=== PATIENT | male | born 1945 | race Caucasian/White ===

== ENCOUNTER 2020-09-20 14:08 | Observation (INO) ==
[2020-09-20] MEDS ORDERED: SODIUM CHLORIDE 0.9% 1000ML 1,000 ML IV ONE (16:27)
[2020-09-20] MEDS ORDERED: ACETAMINOPHEN 1,000 MG/100 ML VIAL IV STA (16:27)
[2020-09-20 16:46] LABS: Basophils # (auto) 0.05 K/uL (0-0.2); Basophils % (auto) 0.6 %; Eosinophils # (auto) 0.19 K/uL (0-0.5); Eosinophils % (auto) 2.2 %; Hematocrit (blood only) 43.6 % (42-52); Hemoglobin 14.8 g/dL (14.0-18.0); Immature Granulocytes # (auto) 0.02 K/uL (0.00-0.02); Immature Granulocytes % (auto) 0.2 %; Lymphocytes # (auto) 1.89 K/uL (1.2-3.4); Lymphocytes % (auto) 22.3 %; Mean Corpuscular Hemoglobin 31.3 pg (25-34); Mean Corpuscular Hgb Conc 33.9 g/dL (32-36); Mean Corpuscular Volume 92.2 fL (80-100); Mean Platelet Volume 10.5 fL (7.4-10.4); Monocytes # (auto) 0.63 K/uL (0.11-0.59); Monocytes % (auto) 7.4 %; Neutrophils % (auto) 67.3 %; Platelet Count 195 K/uL (130-400); RDW Coefficient of Variation 13.5 % (11.5-14.5); RDW Standard Deviation 45.6 fL (36.4-46.3); Red Blood Count 4.73 M/uL (4.7-6.1); White Blood Count 8.48 K/uL (4.8-10.8)
--- NOTE | 2020-09-20 16:49 | XRay Report ---
XR chest 1V portable HISTORY: 75 years-old Male Chest Pain acute atypical chest pain COMPARISON: Chest radiographs 06/21/2008 TECHNIQUE: Portable AP view of the chest FINDINGS: Cardiomediastinal and hilar silhouettes are within normal limits. No pneumothorax, pleural effusion, airspace consolidation or overt pulmonary edema. Degenerative changes of the shoulders and spine. Casper gical anchors of the bilateral humeral heads. IMPRESSION: No acute process. ACT 112: Negative or not required by law. The above report was generated using voice recognition software. It may contain grammatical, syntax o r spelling errors. Electronically signed by: Wilson Cruz M.D. 09/20/2020 4:48 PM
[2020-09-20 17:03] LABS: INR 0.9 (0.9-1.1); Prothrombin Time 9.5 Seconds (9.0-12.0)
[2020-09-20 17:08] LABS: Alanine Aminotransferase 24 U/L (12-78); Albumin Level 3.6 gm/dl (3.4-5.0); Aspartate Aminotransferase 13 U/L (15-37); BUN Creatinine Ratio 20.8 (10-20); Bilirubin Direct < 0.1 mg/dl (0-0.2); Blood Urea Nitrogen 24 mg/dl (7-18); Calcium 8.6 mg/dl (8.5-10.1); Carbon Dioxide 27 mmol/L (21-32); Chloride 107 mmol/L (98-107); Est GFR (African American) 73.3; Est GFR (Non-African American) 63.2; Glucose 180 mg/dl (70-99); Lipase 113 U/L (73-393); Magnesium 2.5 mg/dl (1.8-2.4); Potassium 4.5 mmol/L (3.5-5.1); Sodium 138 mmol/L (136-145)
[2020-09-20 17:16] LABS: Alkaline Phosphatase 95 U/L (45-117); Bilirubin,Total 0.3 mg/dl (0.2-1); C Reactive Protein 0.47 mg/dl (0-0.29); Creatine Kinase 82 U/L (39-308); Globulin 3.7 gm/dl (2.5-4.0); Phosphorus 3.2 mg/dl (2.5-4.9); Total Protein 7.3 gm/dl (6.4-8.2); Troponin I < 0.015 ng/ml (0-0.045)
--- NOTE | 2020-09-20 17:16 | Emergency Department Note ---
Impression & Plan Stroke-like symptoms, Diabetes, Hypertension ED Provider Note NAME: HERMILO BLACKMON AGE: 75 SEX: M ARRIVES VIA: Walk-In INFORMANT: Patient, ED PROVIDER(S): Gutierrez Correa MD CHIEF COMPLAINT: Slurred speech, dizziness, chest tightness on . PLAN: Disposition: Admit. MEDICAL DECISION MAKING: The patient is a pleasant 75-year-old gentleman with a past medical history of diabetes on insulin who presents to the emergency department for evaluation of strokelike symptoms that actually occurred evening when he was out in [place] at a gun show and his friends noticed he was slurring his speech and he felt nauseated and dizzy. The patient reports he did not want to come to the hospital at that time despite numerous friends attempted to encourage him to do so. At the conclusion of the gun show they drove home and the patient rather suggested they stop at a bar to have a couple of drinks where he reports he ate a hamburger and started to feel better and had to double whiskeys. And upon getting back to the area arrived to his friend's house where his car was parked and then proceeded to drive 50 miles to his home which he reports he did without difficulty and woke up in the morning feeling fine and proceeded with their schedule trip to visit his son in [place] with his . The patient did not mention his symptoms to his family at all during the weekend but upon returning last night did mention he had a mild frontal headache and felt fullness in his neck and this persisted this morning and while it is improved somewhat he still feels that sensation. He also reports having constant tingling in his left hand and fingers since his episode on . Otherwise he reports feeling tightness in his chest as well since the episode on where he feels more winded than usual. He reports mild nasal congestion but is typical for him around this time a year due to severe allergies. He denies any history of smoking cigarettes. Denies any history of asthma. He does relate that prior to the onset of symptoms on that they were driving from [employer] and so he admits he did not eat or drink anything because he did not want to stop before he got there and so acknowledges that his sugar may have been low and he certainly likely was dehydrated. He denies any known COVID-19 exposures. He does admit that it is very uncomfortable for him to wear a mask and so he does not typically wear a mask unless he is told to do so. Upon my evaluation he politely asked if I wanted him to put a mask on and when I responded yes he gladly did so. On arrival the patient is well-appearing in no acute distress, afebrile with blood pressure elevated 170/100s though initially more normotensive and vital signs otherwise stable. He appears clinically dry. Has no focal neurologic deficits. EKG without overt acute ischemia. Chest x-ray negative for acute cardiopulmonary process. WBC, H/H and platelets within normal limits. Glucose 180 however chemistry without metabolic acidosis. BUN/creatinine> 20 consistent with patient's clinically dry appearance. Electrolytes unremarkable. LFTs unremarkable. Troponin negative/undetectable. COVID-19 PCR negative. Influenza and RSV PCR also negative. CT of the head negative for acute ICH or ischemia though microvascular ischemic disease and encephalomalacia of the left frontal and occipital lobes suggestive of chronic infarcts are noted. CTA of the head and neck shows right vertebral artery V2 segment with suspicion for high-grade stenosis as well as short segment high-grade stenosis of the left P1 segment. Otherwise there is no large vessel occlusion. The patient is in agreement with plan for admission for additional evaluation of his symptoms. Case was discussed with Dr. Zamora, [facility] hospitalist, who will evaluate the patient for admission. Triage Nursing notes reviewed and agree them. Additional history obtained from Prior medical records reviewed Vital Signs: reviewed and remarkable for hypertension. Differential diagnosis: Infection, dehydration, metabolic abnormality, hypo/hyperglycemia, electrolyte disturbance, anemia, hypoxia, cardiac sources, intracerebral event, toxicologic, neurologic, as well as other pathologies. ER treatment provided: See below. Diagnostics interpreted by me: ECG: Normal sinus rhythm, 65 bpm, no ectopy, no overt ST elevation or depression, QTC 391, QRS 80. Cardiac Monitoring: An order for continuous cardiac monitoring was placed and demonstrated Normal sinus rhythm, 65 bpm, no ectopy. Laboratory studies: See below Imaging studies: See below Consultation(s): Case was discussed with Dr. Zamora, [facility] hospitalist, who will evaluate the patient for admission. HPI: The patient is a pleasant 75-year-old gentleman with a past medical history of diabetes on insulin who presents to the emergency department for evaluation of strokelike symptoms that actually occurred evening when he was out in [place] at a gun show and his friends noticed he was slurring his speech and he felt nauseated and dizzy. The patient reports he did not want to come to the hospital at that time despite numerous friends attempted to encourage him to do so. At the conclusion of the gun show they drove home and the patient rather suggested they stop at a bar to have a couple of drinks where he reports he ate a hamburger and started to feel better and had to double whiskeys. And upon getting back to the area arrived to his friend's house where his car was parked and then proceeded to drive 50 miles to his home which he reports he did without difficulty and woke up in the morning feeling fine and proceeded with their schedule trip to visit his son in [place] with his . The patient did not m ention his symptoms to his family at all during the weekend but upon returning last night did mention he had a mild frontal headache and felt fullness in his neck and this persisted this morning and while it is improved somewhat he still feels that sensation. He also reports having constant tingling in his left hand and fingers since his episode on . Otherwise he reports feeling tightness in his chest as well since the episode on where he feels more winded than usual. He reports mild nasal congestion but is typical for him around this time a year due to severe allergies. He denies any history of smoking cigarettes. Denies any history of asthma. He does relate that prior to the onset of symptoms on that they were driving from [place] [employer] and so he admits he did not eat or drink anything because he did not want to stop before he got there and so acknowledges that his sugar may have been low and he certainly likely was dehydrated. He denies any known COVID-19 exposures. He does admit that it is very uncomfortable for him to wear a mask and so he does not typically wear a mask unless he is told to do so. Upon my evaluation he politely asked if I wanted him to put a mask on and when I responded yes he gladly did so. ROS: See above HPI for pertinent positives & negatives. A total of 10 systems reviewed and were otherwise negative. PAST MEDICAL HISTORY:See Below PAST SURGICAL HISTORY:See Below FAMILY HISTORY:See Below SOCIAL HISTORY:See Below HOME MEDICATIONS:See Below ALLERGIES:See Below VITALS:See Below PHYSICAL EXAMINATION: GENERAL: Awake, alert, well-appearing, in no distress HENT: Normocephalic, atraumatic. Oropharynx with dry mucous membranes and otherwise unremarkable. EYES: Normal conjunctiva. Sclera non-icteric. EOMI. No nystamgus. PEARRL. NECK: Supple. No nuchal rigidity. FROM. No JVD. RESPIRATORY: Clear to auscultation. CARDIAC: Regular rate, normal rhythm. Extremities warm and well perfused. Pulses equal. ABDOMEN: Soft, non-distended. No tenderness to palpation. No rebound or guardi ng. No masses. RECTAL: Deferred. MUSCULOSKELETAL: Chest examination reveals no tenderness. The back is symmetrical on inspection without obvious abnormality. There is no CVA tenderness to palpation. No joint edema. LOWER EXTREMITIES: Calves are equal size bilaterally and non-tender. No edema. No discoloration. NEURO: Normal sensorium. No sensory or motor deficits noted. 5/5 strength and SILT x 4 extremities. Cerebellar function intact including [id number], alternating palms, [id number]. Steady gait. SKIN: No rash or jaundice noted. Gutierrez Correa MD Past Med/Surg History Medical History (Updated 09/21/20 @ 04:19 by Gutierrez Correa MD) DM (diabetes mellitus) Essential (primary) hypertension Surgical History (Updated 09/20/20 @ 19:00 by Bandar Zamora) S/P rotator cuff repair 2 on right; 1 on left Family History (Updated 09/20/20 @ 18:58 by Bandar Zamora) Mother Myocardial infarction Stroke Parkinson disease Social History (Updated 09/20/20 @ 18:59 by Bandar Zamora) Smoking Status: Never smoker Tobacco Type: Smokeless Tobacco (Dip or Chew) Second Hand Exposure: No; Do You Dip or Chew Tobacco: Yes; Tobacco Cessation Education Requested by Patient: No Hx Alcohol Use: Yes Alcohol type: hard liquor Alcohol Intake Frequency: 2-4 x/Month Hx Substance Use: No Preferred Language: Marshallese Communication Ability: Effective Java Software Architect Required: No Beliefs That Will Affect Care: None marital status: Current Living Situation: Spouse current occupational status: retired 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 How many Children do You have: 3 Other Information That Helps Us Care for You: No Feels Safe at Home: Yes Safety Concerns: Feels Safe At This Time Assistive Devices: Denture - Upper and Denture - Lower Allergies Allergies Allergy/AdvReac Type Severity Reaction Status Date / Time No Known Allergies Allergy Verified 09/20/20 18:07 Home Meds Home Medications Medication Instructions Recorded Confirmed cholecalciferol (vitamin D3) 25 mcg PO BID 09/20/20 09/20/20 [Vitamin D3] fluticasone propionate 2 spray INTRANASAL DAILY PRN 09/20/20 09/20/20 insulin glargine [Lantus U-100 14 - 15 unit SUBCUT HS 09/20/20 09/20/20 Insulin] lisinopril 10 mg PO HS 09/20/20 09/20/20 multivitamin 1 tab PO QAM 09/20/20 09/20/20 vit C-E-zinc [id number]-ikhaic-bcoecu 1 tab PO DAILY 09/20/20 09/20/20 [facility] zinc sulfate 50 mg PO DAILY 09/20/20 09/20/20 Results & Data (ED) Vital Signs Vital Signs - 24 hr 09/20/20 14:16 09/20/20 16:04 09/20/20 16:19 Temperature 37.3 C Temperature Source Temporal Artery Scan Pulse Rate 89 72 Pulse Rate [Right Radial] 72 Pulse Rate from SpO2 Sensor 62 Pulse Rhythm Pulse Rhythm [Right Radial] Regular Respiratory Rate 16 18 14 Respiratory Effort / Characteristics Non-Labored Respiratory Depth Normal Normal Respiratory Pattern Regular Blood Pressure 133/93 Blood Pressure [Left Arm] 175/106 H Blood Pressure Mean 106 Blood Pressure Mean [Left Arm] 129 Blood Pressure Position Sitting Blood Pressure Position [Left Arm] Lying Pulse Oximetry 97 96 97 Oxygen Delivery Method Room Air Room Air Sepsis Recent Fever Within 48 Hours No Sepsis New/Unexplained Change in Mental Status No Sepsis Action Taken by Nursing No Action Required 09/20/20 16:25 09/20/20 16:30 09/20/20 16:43 Temperature Temperature Source Pulse Rate 76 Pulse Rate [Right Radial] Pulse Rate from SpO2 Sensor 71 75 72 Pulse Rhythm Pulse Rhythm [Right Radial] Respiratory Rate Respiratory Effort / Characteristics Respiratory Depth Respiratory Pattern Blood Pressure 136/97 Blood Pressure [Left Arm] Blood Pressure Mean 110 Blood Pressure Mean [Left Arm] Blood Pressure Position Blood Pressure Position [Left Arm] Pulse Oximetry 97 97 97 Oxygen Delivery Method Sepsis Recent Fever Within 48 Hours Sepsis New/Unexplained Change in Mental Status Sepsis Action Taken by Nursing 09/20/20 16:46 09/20/20 16:50 09/20/20 17:00 Temperature Temperature Source Pulse Rate 63 67 Pulse Rate [Right Radial] Pulse Rate from SpO2 Sensor 67 65 Pulse Rhythm Regular Pulse Rhythm [Right Radial] Respiratory Rate 18 16 Respiratory Effort / Characteristics Respiratory Depth Respiratory Pattern Blood Pressure 135/81 Blood Pressure [Left Arm] Blood Pressure Mean 99 Blood Pressure Mean [Left Arm] Blood Pressure Position Blood Pressure Position [Left Arm] Pulse Oximetry 96 96 96 Oxygen Delivery Method Room Air Sepsis Recent Fever Within 48 Hours Sepsis New/Unexplained Change in Mental Status Sepsis Action Taken by Nursing 09/20/20 17:01 09/20/20 17:10 09/20/20 17:30 Temperature Temperature Source Pulse Rate 69 66 71 Pulse Rate [Right Radial] Pulse Rate from SpO2 Sensor 68 67 71 Pulse Rhythm Pulse Rhythm [Right Radial] Respiratory Rate 19 16 19 Respiratory Effort / Characteristics Respiratory Depth Respiratory Pattern Blood Pressure Blood Pressure [Left Arm] Blood Pressure Mean Blood Pressure Mean [Left Arm] Blood Pressure Position Blood Pressure Position [Left Arm] Pulse Oximetry 96 97 96 Oxygen Delivery Method Sepsis Recent Fever Within 48 Hours Sepsis New/Unexplained Change in Mental Status Sepsis Action Taken by Nursing 09/20/20 17:40 09/20/20 17:50 09/20/20 18:00 Temperature Temperature Source Pulse Rate 65 66 62 Pulse Rate [Right Radial] Pulse Rate from SpO2 Sensor 64 66 62 Pulse Rhythm Pulse Rhythm [Right Radial] Respiratory Rate 15 19 14 Respiratory Effort / Characteristics Respiratory Depth Respiratory Pattern Blood Pressure 133/89 Blood Pressure [Left Arm] Blood Pressure Mean 103 Blood Pressure Mean [Left Arm] Blood Pressure Position Blood Pressure Position [Left Arm] Pulse Oximetry 97 98 97 Oxygen Delivery Method Sepsis Recent Fever Within 48 Hours Sepsis New/Unexplained Change in Mental Status Sepsis Action Taken by Nursing 09/20/20 18:01 Temperature Temperature Source Pulse Rate 65 Pulse Rate [Right Radial] Pulse Rate from SpO2 Sensor 65 Pulse Rhythm Pulse Rhythm [Right Radial] Respiratory Rate 17 Respiratory Effort / Characteristics Respiratory Depth Respiratory Pattern Blood Pressure Blood Pressure [Left Arm] Blood Pressure Mean Blood Pressure Mean [Left Arm] Blood Pressure Position Blood Pressure Position [Left Arm] Pulse Oximetry 97 Oxygen Delivery Method Sepsis Recent Fever Within 48 Hours Sepsis New/Unexplained Change in Mental Status Sepsis Action Taken by Nursing Laboratory Data Attestation: I reviewed the patient's lab results. Result diagrams: 09/20/20 16:37 09/20/20 16:37 Lab Results 09/20/20 09/20/20 09/20/20 Range/Units 16:37 16:37 16:37 WBC 8.48 (4.8-10.8) K/uL RBC 4.73 (4.7-6.1) M/uL Hgb 14.8 (14.0-18.0) g/dL Hct 43.6 (42-52) % MCV 92.2 (80-100) fL MCH 31.3 (25-34) pg MCHC 33.9 (32-36) g/dL RDW Std Deviation 45.6 (36.4-46.3) fL RDW Coeff of Levar 13.5 (11.5-14.5) % Plt Count 195 (130-400) K/uL MPV 10.5 H (7.4-10.4) fL Immature Gran % (Auto) 0.2 % Neut % (Auto) 67.3 % Lymph % (Auto) 22.3 % Cross % (Auto) 7.4 % Eos % (Auto) 2.2 % Baso % (Auto) 0.6 % Neut # (Auto) 5.70 (1.4-6.5) K/uL Lymph # (Auto) 1.89 (1.2-3.4) K/uL Cross # (Auto) 0.63 H (0.11-0.59) K/uL Eos # (Auto) 0.19 (0-0.5) K/uL Baso # (Auto) 0.05 (0-0.2) K/uL Immature Gran # (Auto) 0.02 (0.00-0.02) K/uL ESR 16 H (0-14) mm/hr PT 9.5 (9.0-12.0) Seconds INR 0.9 (0.9-1.1) Sodium (136-145) mmol/L Potassium (3.5-5.1) mmol/L Chloride (98-107) mmol/L Carbon Dioxide (21-32) mmol/L Anion Gap (3-11) BUN (7-18) mg/dl Creatinine (0.6-1.4) mg/dl Est Cr Clr Drug Dosing ml/min Est GFR ( Amer) Est GFR (Non-Af Amer) BUN/Creatinine Ratio (10-20) Glucose (70-99) mg/dl Calcium (8.5-10.1) mg/dl Phosphorus (2.5-4.9) mg/dl Magnesium (1.8-2.4) mg/dl Total Bilirubin (0.2-1) mg/dl Direct Bilirubin (0-0.2) mg/dl AST (15-37) U/L ALT (12-78) U/L Alkaline Phosphatase (45-117) U/L Total Creatine Kinase (39-308) U/L Troponin I (0-0.045) ng/ml C-Reactive Protein (0-0.29) mg/dl Total Protein (6.4-8.2) gm/dl Albumin (3.4-5.0) gm/dl Globulin (2.5-4.0) gm/dl Albumin/Globulin Ratio (0.9-2) Lipase (73-393) U/L TSH (0.300-4.500) uIu/ml Ethyl Alcohol mg/dL (0-3) mg/dl COVID-19 Eval Order SARS-CoV-2 (PCR) (Negative) Influenza Type A (PCR) (Neg) Influenza Type B (PCR) (Neg) RSV (RT-PCR) (Neg) 09/20/20 09/20/20 09/20/20 Range/Units 16:37 16:37 16:45 WBC (4.8-10.8) K/uL RBC (4.7-6.1) M/uL Hgb (14.0-18.0) g/dL Hct (42-52) % MCV (80-100) fL MCH (25-34) pg MCHC (32-36) g/dL RDW Std Deviation (36.4-46.3) fL RDW Coeff of Levar (11.5-14.5) % Plt Count (130-400) K/uL MPV (7.4-10.4) fL Immature Gran % (Auto) % Neut % (Auto) % Lymph % (Auto) % Cross % (Auto) % Eos % (Auto) % Baso % (Auto) % Neut # (Auto) (1.4-6.5) K/uL Lymph # (Auto) (1.2-3.4) K/uL Cross # (Auto) (0.11-0.59) K/uL Eos # (Auto) (0-0.5) K/uL Baso # (Auto) (0-0.2) K/uL Immature Gran # (Auto) (0.00-0.02) K/uL ESR (0-14) mm/hr PT (9.0-12.0) Seconds INR (0.9-1.1) Sodium 138 (136-145) mmol/L Potassium 4.5 (3.5-5.1) mmol/L Chloride 107 (98-107) mmol/L Carbon Dioxide 27 (21-32) mmol/L Anion Gap 4.0 (3-11) BUN 24 H (7-18) mg/dl Creatinine 1.13 (0.6-1.4) mg/dl Est Cr Clr Drug Dosing 51.0 ml/min Est GFR ( Amer) 73.3 Est GFR (Non-Af Amer) 63.2 BUN/Creatinine Ratio 20.8 H (10-20) Glucose 180 H (70-99) mg/dl Calcium 8.6 (8.5-10.1) mg/dl Phosphorus 3.2 (2.5-4.9) mg/dl Magnesium 2.5 H (1.8-2.4) mg/dl Total Bilirubin 0.3 (0.2-1) mg/dl Direct Bilirubin < 0.1 (0-0.2) mg/dl AST 13 L (15-37) U/L ALT 24 (12-78) U/L Alkaline Phosphatase 95 (45-117) U/L Total Creatine Kinase 82 (39-308) U/L Troponin I < 0.015 (0-0.045) ng/ml C-Reactive Protein 0.47 H (0-0.29) mg/dl Total Protein 7.3 (6.4-8.2) gm/dl Albumin 3.6 (3.4-5.0) gm/dl Globulin 3.7 (2.5-4.0) gm/dl Albumin/Globulin Ratio 1.0 (0.9-2) Lipase 113 (73-393) U/L TSH 2.150 (0.300-4.500) uIu/ml Ethyl Alcohol mg/dL < 3.0 (0-3) mg/dl COVID-19 Eval Order [facility] at [facility] SARS-CoV-2 (PCR) (Negative) Influenza Type A (PCR) (Neg) Influenza Type B (PCR) (Neg) RSV (RT-PCR) (Neg) 09/20/20 Range/Units 16:45 WBC (4.8-10.8) K/uL RBC (4.7-6.1) M/uL Hgb (14.0-18.0) g/dL Hct (42-52) % MCV (80-100) fL MCH (25-34) pg MCHC (32-36) g/dL RDW Std Deviation (36.4-46.3) fL RDW Coeff of Levar (11.5-14.5) % Plt Count (130-400) K/uL MPV (7.4-10.4) fL Immature Gran % (Auto) % Neut % (Auto) % Lymph % (Auto) % Cross % (Auto) % Eos % (Auto) % Baso % (Auto) % Neut # (Auto) (1.4-6.5) K/uL Lymph # (Auto) (1.2-3.4) K/uL Cross # (Auto) (0.11-0.59) K/uL Eos # (Auto) (0-0.5) K/uL Baso # (Auto) (0-0.2) K/uL Immature Gran # (Auto) (0.00-0.02) K/uL ESR (0-14) mm/hr PT (9.0-12.0) Seconds INR (0.9-1.1) Sodium (136-145) mmol/L Potassium (3.5-5.1) mmol/L Chloride (98-107) mmol/L Carbon Dioxide (21-32) mmol/L Anion Gap (3-11) BUN (7-18) mg/dl Creatinine (0.6-1.4) mg/dl Est Cr Clr Drug Dosing ml/min Est GFR ( Amer) Est GFR (Non-Af Amer) BUN/Creatinine Ratio (10-20) Glucose (70-99) mg/dl Calcium (8.5-10.1) mg/dl Phosphorus (2.5-4.9) mg/dl Magnesium (1.8-2.4) mg/dl Total Bilirubin (0.2-1) mg/dl Direct Bilirubin (0-0.2) mg/dl AST (15-37) U/L ALT (12-78) U/L Alkaline Phosphatase (45-117) U/L Total Creatine Kinase (39-308) U/L Troponin I (0-0.045) ng/ml C-Reactive Protein (0-0.29) mg/dl Total Protein (6.4-8.2) gm/dl Albumin (3.4-5.0) gm/dl Globulin (2.5-4.0) gm/dl Albumin/Globulin Ratio (0.9-2) Lipase (73-393) U/L TSH (0.300-4.500) uIu/ml Ethyl Alcohol mg/dL (0-3) mg/dl COVID-19 Eval Order SARS-CoV-2 (PCR) NEGATIVE (Negative) Influenza Type A (PCR) Negative (Neg) Influenza Type B (PCR) Negative (Neg) RSV (RT-PCR) Negative (Neg) Administered Medications Aspirin (Aspirin 81 Mg Ectab) 81 mg PO HS ROBER Stop: 10/20/20 20:59 Last Admin: 09/20/20 22:56 Dose: 81 mg Documented by: [id number] Sodium Chloride (Nss 1000ml) 1,000 mls @ 100 mls/hr IV .Q10H ROBER Stop: 09/21/20 06:24 Last Admin: 09/20/20 22:43 Dose: Not Given Documented by: [id number] Insulin Glargine (Lantus Per Unit Charge) 15 units SQ HS ROBER Stop: 10/20/20 20:59 Last Admin: 09/20/20 23:38 Dose: 15 units Documented by: [id number] Cosigned by: [id number] Nicotine Polacrilex (Nicotine Polacrilex 2 Mg Gum) 1 piece MT Q1H PRN PRN Reason: nicotine craving Stop: 10/20/20 21:56 Last Admin: 09/20/20 22:58 Dose: 1 piece Documented by: [id number] Vitamin D (Cholecalciferol 1,000 Units 25 Mcg Tab) 1,000 units PO BID ROBER Stop: 10/20/20 20:59 Last Admin: 09/20/20 22:57 Dose: 1,000 units Documented by: [id number] Discontinued Medications Sodium Chloride (Nss 1000ml) 1,000 mls @ 999 mls/hr IV .Q1H1M ONE Stop: 09/20/20 17:27 Last Infusion: 09/20/20 19:09 Dose: 0 mls/hr Documented by: [id number] Admin: 09/20/20 16:42 Dose: 999 mls/hr Documented by: [id number] Acetaminophen (Ofirmev) 1,000 mg in 100 mls @ 400 mls/hr IV NOW STA Stop: 09/20/20 16:41 Last Infusion: 09/20/20 19:09 Dose: 0 mls/hr Documented by: [id number] Admin: 09/20/20 16:39 Dose: 400 mls/hr Documented by: [id number] Ioversol (Optiray 320 125ml) 120 ml IV ONCE ONE Stop: 09/20/20 17:21 Last Admin: 09/20/20 17:21 Dose: 120 ml Documented by: [id number] Imaging Data Radiologist's Impression: Chest X-Ray 09/20/20 16:25 XR chest 1V portable HISTORY: 75 years-old Male Chest Pain acute atypical chest pain COMPARISON: Chest radiographs 06/21/2008 TECHNIQUE: Portable AP view of the chest FINDINGS: Cardiomediastinal and hilar silhouettes are within normal limits. No pneumothorax, pleural effusion, airspace consolidation or overt pulmonary edema. Degenerative changes of the shoulders and spine. Surgical anchors of the bilateral humeral heads. IMPRESSION: No acute process. ACT 112: Negative or not required by law. The above report was generated using voice recognition software. It may contain grammatical, syntax or spelling errors. Electronically signed by: Wilson Cruz M.D. 09/20/2020 4:[address] 09/20/20 16:25 CT head/brain wo con CLINICAL HISTORY: 75 years-old Male with transient slurred speech, HAMMOND, dizziness. Acute headache with dizziness and slurred speech TECHNIQUE: Multiple axial CT images of the head were obtained without contrast. A dose lowering technique was utilized adhering to the principles of ALARA. COMPARISON: CTA head and neck of same day FINDINGS: No acute intracranial hemorrhage, midline shift, intracranial mass, hydrocephalus, territorial ischemia or abnormal extra-axial collection. Age- related involutional changes. White matter hypodensities suggestive of chronic microvascular ischemic disease. Encephalomalacia of the left frontal and occipital lobes suggestive of chronic infarcts. Cerebral vascular calcifications. The calvarium is intact. The paranasal sinuses, mastoid air cells, and middle ear cavities are clear. IMPRESSION: No acute intracranial abnormality. ACT 112: Negative or not required by law. The above report was generated using voice recognition software. It may contain grammatical, syntax or spelling errors. Electronically signed by: Wilson Cruz M.D. 09/20/2020 5:32 PM Head CTA 09/20/20 16:25 CT angio neck with con, CT angio head w con CLINICAL HISTORY: 75 years-old Male with transient slurred speech, HAMMOND, dizziness. Acute headache with slurred speech COMPARISON STUDY: Head CT of same day TECHNIQUE: Following the IV administration of 120 mL of Optiray 320, CT an giogram of the head and neck was performed from the aortic arch to the skull apex. Images are reviewed in the axial, sagittal, and coronal planes. 3-D MIPS images are created and assessed. IV contrast was administered without complication. All measurements were calculated based on NASCET criteria. A dose lowering technique was utilized adhering to the principles of ALARA. CT DOSE: 1072.87 mGy.cm FINDINGS: Three-vessel morphology of the thoracic aortic arch. There is patency of the innominate and imaged subclavian arteries. Patent common carotid arteries. Moderate mixed plaque of the carotid bulbs and proximal cervical segments of the internal carotid arteries. This results in less than 50% luminal narrowing bilaterally, left greater than right. There is a small ulcerative plaque of the proximal cervical segment left ICA, image 185. Calcifications of the cavernous, clinoid and supraclinoid segments. Mostly mild multifocal luminal narrowing of the middle and anterior cerebral arteries. 50% luminal narrowing at the origin of the left vertebral artery secondary to atheromatous plaque. The left vertebral artery is dominant. High-grade stenosis at the origin of the developmentally diminutive right vertebral artery, image 91. There is a 1.7 cm segment of the V2 segment right vertebral artery extending from the C2-C3 disc space to the C3-C4 disc space which demonstrates no appreciable flow. The basilar artery is patent. High-grade stenosis of the mid P1 segment of the left posterior cerebral artery on image 103. 50% luminal narrowing involves the P1 segment right posterior cerebral artery on image 95. Cerebral venous sinuses are patent. There is no abnormal intracranial enhancement. 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 No pneumothorax. The lung apices are clear. Unremarkable soft tissues. No acute fracture. Degenerative changes of the cervical spine. IMPRESSION: 1. Dominant left vertebral artery. The developmentally diminutive right vertebral artery demonstrates no appreciable flow within a portion of the V2 segment as above suggestive of high-grade stenosis. Additionally, there is high- grade stenosis at the origin. 2. Short segment high-grade stenosis of the left P1 segment. 3. Atheromatous plaque of the carotid bulbs, left greater than right results in less than 50% stenosis bilaterally. ACT 112: Negative or not required by law. The above report was generated using voice recognition software. It may contain grammatical, syntax or spelling errors. Electronically signed by: Wilson Cruz M.D. 09/20/2020 6:01 PM Neck CTA 09/20/20 16:25 CT angio neck with con, CT angio head w con CLINICAL HISTORY: 75 years-old Male with transient slurred speech, HAMMOND, dizziness. Acute headache with slurred speech COMPARISON STUDY: Head CT of same day TECHNIQUE: Following the IV administration of 120 mL of Optiray 320, CT angiogram of the head and neck was performed from the aortic arch to the skull apex. Images are reviewed in the axial, sagittal, and coronal planes. 3-D MIPS images are created and assessed. IV contrast was administered without complication. All measurements were calculated based on NASCET criteria. A dose lowering technique was utilized adhering to the principles of ALARA. CT DOSE: 1072.87 mGy.cm FINDINGS: Three-vessel morphology of the thoracic aortic arch. There is patency of the innominate and imaged subclavian arteries. Patent common carotid arteries. Moderate mixed plaque of the carotid bulbs and proximal cervical segments of the internal carotid arteries. This results in less than 50% luminal narrowing bilaterally, left greater than right. There is a small ulcerative plaque of the proximal cervical segment left ICA, image 185. Calcifications of the cavernous, clinoid and supraclinoid segments. Mostly mild multifocal luminal narrowing of the middle and anterior cerebral arteries. 50% luminal narrowing at the origin of the left vertebral artery secondary to atheromatous plaque. The left vertebral artery is dominant. High-grade stenosis at the origin of the developmentally diminutive right vertebral artery, image 91. There is a 1.7 cm segment of the V2 segment right vertebral artery extending from the C2-C3 disc space to the C3-C4 disc space which demonstrates no appreciable flow. The basilar artery is patent. High-grade stenosis of the mid P1 segment of the left posterior cerebral artery on image 103. 50% luminal narrowing involves the P1 segment right posterior cerebral artery on image 95. Cerebral venous sinuses are patent. There is no abnormal intracranial enhancement. 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 No pneumothorax. The lung apices are clear. Unremarkable soft tissues. No acute fracture. Degenerative changes of the cervical spine. IMPRESSION: 1. Dominant left vertebral artery. The developmentally diminutive right vertebral artery demonstrates no appreciable flow within a portion of the V2 segment as above suggestive of high-grade stenosis. Additionally, there is high- grade stenosis at the origin. 2. Short segment high-grade stenosis of the left P1 segment. 3. Atheromatous plaque of the carotid bulbs, left greater than right results in less than 50% stenosis bilaterally. ACT 112: Negative or not required by law. The above report was generated using voice recognition software. It may contain grammatical, syntax or spelling errors. Electronically signed by: Wilson Cruz M.D. 09/20/2020 6:01 PM Discharge Plan Visit Data Chief Complaint: TIA Symptoms Stated Complaint: DIZZY, SOB, THROWING UP ED Provider: Gutierrez Correa Discharge Problem: Stroke-like symptoms, Diabetes, Hypertension Patient Disposition: Admitted As Inpatient Discharge Instructions Interventions: ED Discharge Assessment Last Done: 09/20/20 20:08
[2020-09-20] MEDS ORDERED: OPTIRAY 320 125ml IV ONE (17:20)
--- NOTE | 2020-09-20 17:34 | CT Scan Report ---
CT head/brain wo con CLINICAL HISTORY: 75 years-old Male with transient slurred speech, HAMMOND, dizziness. Acute headache wit h dizziness and slurred speech TECHNIQUE: Multiple axial CT images of the head were obtained without contrast. A dose lowering tech nique was utilized adhering to the principles of ALARA. COMPARISON: CTA head and neck of same day FINDINGS: No acute intracranial hemorrhage, midline shift, intracranial mass, hydrocephalus, territorial ischem ia or abnormal extra-axial collection. Age-related involutional changes. White matter hypodensities s uggestive of chronic microvascular ischemic disease. Encephalomalacia of the left frontal and occipit al lobes suggestive of chronic infarcts. Cerebral vascular calcifications. The calvarium is intact. The paranasal sinuses, mastoid air cells, and middle ear cavities are clear . IMPRESSION: No acute intracranial abnormality. ACT 112: Negative or not required by law. The above report was generated using voice recognition software. It may contain grammatical, syntax o r spelling errors. Electronically signed by: Wilson Cruz M.D. 09/20/2020 5:32 PM
--- NOTE | 2020-09-20 18:03 | CT Scan Report ---
CT angio neck with con, CT angio head w con CLINICAL HISTORY: 75 years-old Male with transient slurred speech, HAMMOND, dizziness. Acute headache w ith slurred speech COMPARISON STUDY: Head CT of same day TECHNIQUE: Following the IV administration of 120 mL of Optiray 320, CT angiogram of the head and nec k was performed from the aortic arch to the skull apex. Images are reviewed in the axial, sagittal, a nd coronal planes. 3-D MIPS images are created and assessed. IV contrast was administered without com plication. All measurements were calculated based on NASCET criteria. A dose lowering technique was utilized adhering to the principles of ALARA. CT DOSE: 1072.87 mGy.cm FINDINGS: Three-vessel morphology of the thoracic aortic arch. There is patency of the innominate and imaged vazquez bclavian arteries. Patent common carotid arteries. Moderate mixed plaque of the carotid bulbs and pro ximal cervical segments of the internal carotid arteries. This results in less than 50% luminal narro wing bilaterally, left greater than right. There is a small ulcerative plaque of the proximal cervica l segment left ICA, image 185. Calcifications of the cavernous, clinoid and supraclinoid segments. Mo stly mild multifocal luminal narrowing of the middle and anterior cerebral arteries. 50% luminal narrowing at the origin of the left vertebral artery secondary to atheromatous plaque. Th e left vertebral artery is dominant. High-grade stenosis at the origin of the developmentally diminut sancho right vertebral artery, image 91. There is a 1.7 cm segment of the V2 segment right vertebral art pete extending from the C2-C3 disc space to the C3-C4 disc space which demonstrates no appreciable leonel w. The basilar artery is patent. High-grade stenosis of the mid P1 segment of the left posterior cere bral artery on image 103. 50% luminal narrowing involves the P1 segment right posterior cerebral david ry on image 95. Cerebral venous sinuses are patent. There is no abnormal intracranial enhancement. Vazquez ggested chronic infarcts of the left frontal and occipital lobes. No pneumothorax. The lung apices are clear. Unremarkable soft tissues. No acute fracture. Degenerativ e changes of the cervical spine. IMPRESSION: 1. Dominant left vertebral artery. The developmentally diminutive right vertebral artery demonstrates no appreciable flow within a portion of the V2 segment as above suggestive of high-grade stenosis. A dditionally, there is high-grade stenosis at the origin. 2. Short segment high-grade stenosis of the left P1 segment. 3. Atheromatous plaque of the carotid bulbs, left greater than right results in less than 50% stenosi s bilaterally. ACT 112: Negative or not required by law. The above report was generated using voice recognition software. It may contain grammatical, syntax o r spelling errors. Electronically signed by: Wilson Cruz M.D. 09/20/2020 6:01 PM
[2020-09-20 18:09] LABS: Influenza A virus by PCR Negative (Neg); Influenza B virus by PCR Negative (Neg); RSV by PCR Negative (Neg); SARS CoV2 RNA(COVID-19) InHosp NEGATIVE (Negative)
[2020-09-20] MEDS ORDERED: NICOTINE POLACRILEX 2 MG GUM MT PRN ×2 (18:40→21:57)
--- NOTE | 2020-09-20 18:47 | History & Physical Report ---
Date of Service September 20, 2020 Assessment & Plan (1) Near syncope: Symptoms last could have been due to TIA (or actual stroke) vs orthostatic/vasovagal event vs ACS vs hypoglycemia vs other. Symptoms did not last long and self-resolved. The main symptom was that of dizziness. He did have mild slurred speech, however. Plan - MRI brain ordered; NO acute or subacute stroke. This still could have been TIA, however given the slurred speech. Start asa 81mg daily for secondary prevention. Unfortunately we will never know if this was from hypoglycemia as he did not check his BSG during the event. Check orthostatics now. Echo in am. Telemetry overnight to r/o dysrhythmia. 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 L frontal; L parietal; R basal ganglia. Start asa for secondary prevention. TIA w/u in progress including echo, tele, lipids, etc. PT, OT, speech. Neuro consult. etiology of prior, old CVAs? cardioembolic? no ICA stenosis found. small vessel disease? but that wouldn't explain the MCA territory old strokes. await neuro consult. (4) Hypertension: Hold lisinopril tonight, then resume tomorrow and titrate. (5) DM (diabetes mellitus): Check a1c while here. Lantus 15 units daily. Novolog correction w/ carb coverage. (6) Vertebral artery stenosis: severe based on CTA findings. could he have subclavian steal physiology leading to dizziness/lightheadedness and near-syncope? asa. check lipids - he most likely needs high-intensity statin. stop tobacco use. (7) Tobacco abuse: nicotine gum prn delinquency counselor to quit (8) DVT prophylaxis: defer chemical means for now if patient discharges home tomorrow if he stays 2 nights then add heparin SC updated at bedside History of Present Illness Chief Complaint: ?TIA Primary Care Provider: Ronen Young 75yo male with history of diabetes who was traveling in [place] last for an outdoor gun competition. He states it was very cold and he started to walk to his friend's truck to warm up. He felt unsteady on his feet as he was walking. By the time he got to the truck he was feeling dizzy/lightheaded. He laid down on the floor of the interior of the truck. The dizziness continued. His friends said he looked pale. Speech was slurry. He had nausea followed by vomiting. After vomiting he remained seated on the floor of the truck and slowly felt better. Friends encouraged him to go to the hospital but he refused. He was leaving to travel to [place] the next day to see his son and didn't want to go to the hospital for fear he would miss his trip. All symptoms largely resolved and he felt well enough to go to a local tavern to drink whiskey and eat a large hamburger later that night. Of note - he did not check his blood sugar at the time of the event. Went to [place] on Saturday; came back to [place] on Saturday. [place] fine all weekend. Just tired. He came to our ER today because he told his about the incident for the first time today and she demanded that he come for evaluation. Allergies Allergy/AdvReac Type Severity Reaction Status Date / Time No Known Allergies Allergy Verified 09/20/20 18:07 Home Medications Medication Instructions Recorded Confirmed Type cholecalciferol (vitamin D3) 25 mcg PO BID 09/20/20 09/20/20 History [Vitamin D3] fluticasone propionate 2 spray INTRANASAL DAILY PRN 09/20/20 09/20/20 History insulin glargine [Lantus U-100 14 - 15 unit SUBCUT HS 09/20/20 09/20/20 History Insulin] lisinopril 10 mg PO HS 09/20/20 09/20/20 History multivitamin 1 tab PO QAM 09/20/20 09/20/20 History vit C-E-zinc vca-nfiseg-cytvof 1 tab PO DAILY 09/20/20 09/20/20 [facility] zinc sulfate 50 mg PO DAILY 09/20/20 09/20/20 History Past Med/Surg History Medical History DM (diabetes mellitus) Essential (primary) hypertension Surgical History S/P rotator cuff repair 2 on right; 1 on left Family History Mother Myocardial infarction Stroke Parkinson disease Social History (Updated 09/20/20 @ 18:59 by Bandar Zamora) Smoking Status: Never smoker Tobacco Type: Smokeless Tobacco (Dip or Chew) Second Hand Exposure: No; Do You Dip or Chew Tobacco: Yes; Tobacco Cessation Education Requested by Patient: No Hx Alcohol Use: Yes Alcohol type: hard liquor Alcohol Intake Frequency: 2-4 x/Month Hx Substance Use: No Preferred Language: Libyan Communication Ability: Effective 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 Beliefs That Will Affect Care: None marital status: Current Living Situation: Spouse current occupational status: retired current occupation: [employer] How many Children do You have: 3 Other Information That Helps Us Care for You: No Feels Safe at Home: Yes Safety Concerns: Feels Safe At This Time Assistive Devices: Denture - Upper and Denture - Lower Review of Systems Constitutional: + fatigue; no fever, no chills, no weakness and no anorexia Eyes: no worsening vision Ear, Nose, Mouth, Throat: no nasal congestion and no sore throat Respiratory: no cough, no dyspnea and no dyspnea on exertion Cardiovascular: no chest pain Gastrointestinal: no abdominal pain, no nausea and no vomiting Genitourinary: no dysuria Musculoskeletal: + joint pain Integumentary: no rash Neurologic: no localized weakness and no loss of sensation Psychiatric: occasional memory issues Endocrine: checks BSGs twice daily; states they have been wnl but he does have LOWS often times in middle of the night Hematologic / Lymphatic: no easy bleeding Physical Exam Constitutional: well developed and well nourished; no acute distress and no altered mental status very talkative Eyes: PERRL; no nystagmus ENMT: external ear and nose normal, oropharynx normal Neck: trachea midline, no thyromegaly Respiratory: normal respiratory effort, lungs clear to auscultation Cardiovascular: RRR, no murmur, no edema Heart Sounds: normal S1 and normal S2 Vessels: no JVD Gastrointestinal (Abdomen): normal bowel sounds, soft, nontender, no hepatosplenomegaly Musculoskeletal: no cyanosis or clubbing, extremities motor strength 5/5 Skin: no rashes, warm and dry Neurologic: patellar DTR's 2+ bilat, sensation intact moves all extremities; no focal motor deficits and not confused Speech / Cognition: normal speech Motor/Sensory: no pronator drift Cranial Nerves: EOM intact bilaterally, normal facial strength, tongue midline, able to elevate shoulders bilaterally and symmetric palate elevation Psychiatric: Orientation: alert and oriented x 3 Lymphatic: no cervical lymphadenopathy Results & Data Results & Data ([facility]) Vital Signs (Past 12 Hours) Vital Signs Temp Pulse Pulse Resp BP BP Pulse Ox 09/20/20 18:01 65 17 97 09/20/20 18:00 62 14 133/89 97 09/20/20 17:50 66 19 98 09/20/20 17:40 65 15 97 09/20/20 17:30 71 19 96 09/20/20 17:10 66 16 97 09/20/20 17:01 69 19 96 09/20/20 17:00 67 16 135/81 96 09/20/20 16:50 96 09/20/20 16:46 63 18 96 09/20/20 16:43 97 09/20/20 16:30 76 136/97 97 09/20/20 16:25 97 09/20/20 16:19 72 14 97 09/20/20 16:04 72 18 175/106 H 96 09/20/20 14:16 37.3 C 89 16 133/93 97 Laboratory Results Laboratory Results - last 24 hr 09/20/20 09/20/20 09/20/20 16:37 16:37 16:37 WBC 8.48 RBC 4.73 Hgb 14.8 Hct 43.6 MCV 92.2 MCH 31.3 MCHC 33.9 RDW Std Deviation 45.6 RDW Coeff of Levar 13.5 Plt Count 195 MPV 10.5 H Immature Gran % (Auto) 0.2 Neut % (Auto) 67.3 Lymph % (Auto) 22.3 Wilkin % (Auto) 7.4 Eos % (Auto) 2.2 Baso % (Auto) 0.6 Neut # (Auto) 5.70 Lymph # (Auto) 1.89 Wilkin # (Auto) 0.63 H Eos # (Auto) 0.19 Baso # (Auto) 0.05 Immature Gran # (Auto) 0.02 ESR 16 H PT 9.5 INR 0.9 Sodium Potassium Chloride Carbon Dioxide Anion Gap BUN Creatinine Est Cr Clr Drug Dosing Est GFR ( Amer) Est GFR (Non-Af Amer) BUN/Creatinine Ratio Glucose POC Glucose Calcium Phosphorus Magnesium Total Bilirubin Direct Bilirubin AST ALT Alkaline Phosphatase Total Creatine Kinase Troponin I C-Reactive Protein Total Protein Albumin Globulin Albumin/Globulin Ratio Lipase TSH Urine Color Urine Appearance Urine pH Ur Specific [place] Urine Protein Urine Glucose (UA) Urine Ketones Urine Blood Urine Nitrite Urine Bilirubin Urine Urobilinogen Ur Leukocyte Esterase Ethyl Alcohol mg/dL COVID-19 Eval Order SARS-CoV-2 (PCR) Influenza Type A (PCR) Influenza Type B (PCR) RSV (RT-PCR) 09/20/20 09/20/20 09/20/20 16:37 16:37 16:45 WBC RBC Hgb Hct MCV MCH MCHC RDW Std Deviation RDW Coeff of Levar Plt Count MPV Immature Gran % (Auto) Neut % (Auto) Lymph % (Auto) Wilkin % (Auto) Eos % (Auto) Baso % (Auto) Neut # (Auto) Lymph # (Auto) Wilkin # (Auto) Eos # (Auto) Baso # (Auto) Immature Gran # (Auto) ESR PT INR Sodium 138 Potassium 4.5 Chloride 107 Carbon Dioxide 27 Anion Gap 4.0 BUN 24 H Creatinine 1.13 Est Cr Clr Drug Dosing 51.0 Est GFR ( Amer) 73.3 Est GFR (Non-Af Amer) 63.2 BUN/Creatinine Ratio 20.8 H Glucose 180 H POC Glucose Calcium 8.6 Phosphorus 3.2 Magnesium 2.5 H Total Bilirubin 0.3 Direct Bilirubin < 0.1 AST 13 L ALT 24 Alkaline Phosphatase 95 Total Creatine Kinase 82 Troponin I < 0.015 C-Reactive Protein 0.47 H Total Protein 7.3 Albumin 3.6 Globulin 3.7 Albumin/Globulin Ratio 1.0 Lipase 113 TSH 2.150 Urine Color Urine Appearance Urine pH Ur Specific [place] Urine Protein Urine Glucose (UA) Urine Ketones Urine Blood Urine Nitrite Urine Bilirubin Urine Urobilinogen Ur Leukocyte Esterase Ethyl Alcohol mg/dL < 3.0 COVID-19 Eval Order CovFluRsv at [facility] SARS-CoV-2 (PCR) Influenza Type A (PCR) Influenza Type B (PCR) RSV (RT-PCR) 09/20/20 09/20/20 09/20/20 16:45 18:44 22:01 WBC RBC Hgb Hct MCV MCH MCHC RDW Std Deviation RDW Coeff of Levar Plt Count MPV Immature Gran % (Auto) Neut % (Auto) Lymph % (Auto) Wilkin % (Auto) Eos % (Auto) Baso % (Auto) Neut # (Auto) Lymph # (Auto) Wilkin # (Auto) Eos # (Auto) Baso # (Auto) Immature Gran # (Auto) ESR PT INR Sodium Potassium Chloride Carbon Dioxide Anion Gap BUN Creatinine Est Cr Clr Drug Dosing Est GFR ( Amer) Est GFR (Non-Af Amer) BUN/Creatinine Ratio Glucose POC Glucose 249 H Calcium Phosphorus Magnesium Total Bilirubin Direct Bilirubin AST ALT Alkaline Phosphatase Total Creatine Kinase Troponin I C-Reactive Protein Total Protein Albumin Globulin Albumin/Globulin Ratio Lipase TSH Urine Color Yellow Urine Appearance Clear Urine pH 5.0 Ur Specific [place] 1.041 H Urine Protein Negative Urine Glucose (UA) 1+ H Urine Ketones Negative Urine Blood Negative Urine Nitrite Negative Urine Bilirubin Negative Urine Urobilinogen Negative Ur Leukocyte Esterase Negative Ethyl Alcohol mg/dL COVID-19 Eval Order SARS-CoV-2 (PCR) NEGATIVE Influenza Type A (PCR) Negative Influenza Type B (PCR) Negative RSV (RT-PCR) Negative Diagnostic Findings Chest X-Ray 09/20/20 16:25 XR chest 1V portable HISTORY: 75 years-old Male Chest Pain acute atypical chest pain COMPARISON: Chest radiographs 06/21/2008 TECHNIQUE: Portable AP view of the chest FINDINGS: Cardiomediastinal and hilar silhouettes are within normal limits. No pneu mothorax, pleural effusion, airspace consolidation or overt pulmonary edema. Degenerative changes of the shoulders and spine. Surgical anchors of the bilateral humeral heads. IMPRESSION: No acute process. ACT 112: Negative or not required by law. The above report was generated using voice recognition software. It may contain grammatical, syntax or spelling errors. Electronically signed by: Wilson Cruz M.D. 09/20/2020 4:[address] 09/20/20 16:25 CT head/brain wo con CLINICAL HISTORY: 75 years-old Male with transient slurred speech, HAMMOND, dizzi ness. Acute headache with dizziness and slurred speech TECHNIQUE: Multiple axial CT images of the head were obtained without contrast. A dose lowering technique was utilized adhering to the principles of ALARA. COMPARISON: CTA head and neck of same day FINDINGS: No acute intracranial hemorrhage, midline shift, intracranial mass, hydrocephalus, territorial ischemia or abnormal extra-axial collection. Age- related involutional changes. White matter hypodensities suggestive of chronic microvascular ischemic disease. Encephalomalacia of the left frontal and occipital lobes suggestive of chronic infarcts. Cerebral vascular calcifications. The calvarium is intact. The paranasal sinuses, mastoid air cells, and middle ear cavities are clear. IMPRESSION: No acute intracranial abnormality. ACT 112: Negative or not required by law. The above report was generated using voice recognition software. It may contain grammatical, syntax or spelling errors. Electronically signed by: Wilson Cruz M.D. 09/20/2020 5:32 PM Head CTA 09/20/20 16:25 CT angio neck with con, CT angio head w con CLINICAL HISTORY: 75 years-old Male with transient slurred speech, HAMMOND, dizziness. Acute headache with slurred speech COMPARISON STUDY: Head CT of same day TECHNIQUE: Following the IV administration of 120 mL of Optiray 320, CT angiogram of the head and neck was performed from the aortic arch to the skull apex. Images are reviewed in the axial, sagittal, and coronal planes. 3-D MIPS images are created and assessed. IV contrast was administered without complication. All measurements were calculated based on NASCET criteria. A dose lowering technique was utilized adhering to the principles of ALARA. CT DOSE: 1072.87 mGy.cm FINDINGS: Three-vessel morphology of the thoracic aortic arch. There is patency of the innominate and imaged subclavian arteries. Patent common carotid arteries. Moderate mixed plaque of the carotid bulbs and proximal cervical segments of the internal carotid arteries. This results in less than 50% luminal narrowing bilaterally, left greater than right. There is a small ulcerative plaque of the proximal cervical segment left ICA, image 185. Calcifications of the cavernous, clinoid and supraclinoid segments. Mostly mild multifocal luminal narrowing of the middle and anterior cerebral arteries. 50% luminal narrowing at the origin of the left vertebral artery secondary to atheromatous plaque. The left vertebral artery is dominant. High-grade stenosis at the origin of the developmentally diminutive right vertebral artery, image 91. There is a 1.7 cm segment of the V2 segment right vertebral artery extending from the C2-C3 disc space to the C3-C4 disc space which demonstrates no appreciable flow. The basilar artery is patent. High-grade stenosis of the mid P1 segment of the left posterior cerebral artery on image 103. 50% luminal narrowing involves the P1 segment right posterior cerebral artery on image 95. Cerebral venous sinuses are patent. There is no abnormal intracranial enhancement. 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 No pneumothorax. The lung apices are clear. Unremarkable soft tissues. No acute fracture. Degenerative changes of the cervical spine. IMPRESSION: 1. Dominant left vertebral artery. The developmentally diminutive right vertebral artery demonstrates no appreciable flow within a portion of the V2 segment as above suggestive of high-grade stenosis. Additionally, there is high- grade stenosis at the origin. 2. Short segment high-grade stenosis of the left P1 segment. 3. Atheromatous plaque of the carotid bulbs, left greater than right results in less than 50% stenosis bilaterally. ACT 112: Negative or not required by law. The above report was generated using voice recognition software. It may contain grammatical, syntax or spelling errors. Electronically signed by: Wilson Cruz M.D. 09/20/2020 6:01 PM Neck CTA 09/20/20 16:25 CT angio neck with con, CT angio head w con CLINICAL HISTORY: 75 years-old Male with transient slurred speech, HAMMOND, dizziness. Acute headache with slurred speech COMPARISON STUDY: Head CT of same day TECHNIQUE: Following the IV administration of 120 mL of Optiray 320, CT angiogram of the head and neck was performed from the aortic arch to the skull apex. Images are reviewed in the axial, sagittal, and coronal planes. 3-D MIPS images are created and assessed. IV contrast was administered without complication. All measurements were calculated based on NASCET criteria. A dose lowering technique was utilized adhering to the principles of ALARA. CT DOSE: 1072.87 mGy.cm FINDINGS: Three-vessel morphology of the thoracic aortic arch. There is patency of the innominate and imaged subclavian arteries. Patent common carotid arteries. Moderate mixed plaque of the carotid bulbs and proximal cervical segments of the internal carotid arteries. This results in less than 50% luminal narrowing bilaterally, left greater than right. There is a small ulcerative plaque of the proximal cervical segment left ICA, image 185. Calcifications of the cavernous, clinoid and supraclinoid segments. Mostly mild multifocal luminal narrowing of the middle and anterior cerebral arteries. 50% luminal narrowing at the origin of the left vertebral artery secondary to atheromatous plaque. The left vertebral artery is dominant. High-grade stenosis at the origin of the developmentally diminutive right vertebral artery, image 91. There is a 1.7 cm segment of the V2 segment right vertebral artery extending from the C2-C3 disc space to the C3-C4 disc space which demonstrates no appreciable flow. The basilar artery is patent. High-grade stenosis of the mid P1 segment of the left posterior cerebral artery on image 103. 50% luminal narrowing involves the P1 segment right posterior cerebral artery on image 95. Cerebral venous sinuses are patent. There is no abnormal intracranial enhancement. 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 No pneumothorax. The lung apices are clear. Unremarkable soft tissues. No acute fracture. Degenerative changes of the cervical spine. IMPRESSION: 1. Dominant left vertebral artery. The developmentally diminutive right vertebral artery demonstrates no appreciable flow within a portion of the V2 segment as above suggestive of high-grade stenosis. Additionally, there is high- grade stenosis at the origin. 2. Short segment high-grade stenosis of the left P1 segment. 3. Atheromatous plaque of the carotid bulbs, left greater than right results in less than 50% stenosis bilaterally. ACT 112: Negative or not required by law. The above report was generated using voice recognition software. It may contain grammatical, syntax or spelling errors. Electronically signed by: Wilson Cruz M.D. 09/20/2020 6:01 PM Brain MRI 09/20/20 20:25 MRI OF THE BRAIN WITHOUT CONTRAST CLINICAL HISTORY: Transient ischemic attack. History of prior strokes. Dizziness, nausea, hand tingling. COMPARISON STUDY: Noncontrast head CT dated 09/20/2020 FINDINGS: Sagittal T1, axial diffusion, proton density and T2 weighted axial, coronal FLAIR, and axial T1-weighted images were acquired. No intra or extra-axial mass lesions are visualized Axial diffusion-weighted images reveal no evidence of acute or subacute infarction. There is no evidence of ventricular dilatation. Proton density T2-weighted and FLAIR images reveal moderate foci of increased T2 signal within the white matter, likely on a small vessel basis. There are old left frontal and left parieto-occipital infarcts. There is an old right basal ganglia lacunar infarct. There are no abnormal flow voids. Densities posterior to the cervical cord on the sagittal T1-weighted images at the C3 and C4 level, likely related to posterior ligamentous hypertrophy at calcification as was visualized on the prior CT angiogram. IMPRESSION: 1. No acute intracranial findings 2. No evidence of intracranial mass in this noncontrast study 3. No evidence of acute or subacute infarction 4. Old post infarct changes. ACT 112: Negative or not required by law. Electronically signed by: Reddy Anderson M.D. 09/21/2020 7:58 AM Code Status & VTE Plan Code Status full VTE Prophylaxis Plan VTE Prophylaxis will be ordered: Yes PG Care Time/CCT Total # of Minutes Spent Total Time Spent with Patient: Total time spent is greater than 50% in coordination of care (as documented) at patient's floor/unit and/or counseling patient: Coding Level of Care Code 53235 Initial Inpt Care Lvl 3 Diagnoses Near syncope R55 Stroke-like symptoms R29.90 Cerebrovascular disease I67.9 Hypertension I10 DM (diabetes mellitus) E11.9 Vertebral artery stenosis I65.09 Tobacco abuse Z72.0 DVT prophylaxis Z29.9
[2020-09-20 20:03] LABS: Appearance Urine Clear (Clear); Bilirubin Urine Negative (Negative); Blood Urine Negative (Negative); Color Urine Yellow; Glucose Urine UA 1+ (Negative); Ketones Urine Negative (Negative); Leukocyte Esterase Urine Negative (Negative); Nitrite Urine Negative (Negative); Protein Urine Negative (Negative); Specific Gravity Urine 1.041 (1.000-1.030); Urobilinogen Urine Negative (Negative)
[2020-09-20] MEDS ORDERED: FLUTICASONE PROPIONATE NA SPR 16 GM BTL PRN (20:25)
[2020-09-20] MEDS ORDERED: ONDANSETRON INJ 2 MG/ML 2 ML VIAL IV PRN (20:25)
[2020-09-20] MEDS ORDERED: ACETAMINOPHEN 325 MG TAB PO PRN (20:25)
[2020-09-20] MEDS ORDERED: SODIUM CHLORIDE 0.9% 1000ML 1,000 ML IV SCH (20:25)
[2020-09-20] MEDS ORDERED: ASPIRIN 81 MG ECTAB PO SCH (21:00)
[2020-09-20] MEDS ORDERED: LANTUS PER UNIT CHARGE SQ SCH (21:00)
[2020-09-20] MEDS ORDERED: GLUCOSE 40% GEL 15 GM TUBE PO PRN (21:57)
[2020-09-20] MEDS ORDERED: DEXTROSE 50% 50 ML SYRINGE IV PRN (21:57)
[2020-09-20] MEDS ORDERED: CARBOHYDRATES FOR HYPOGLYCEMIA PO PRN (21:57)
[2020-09-20] MEDS ORDERED: GLUCOSE 10 TABS/TUBE PO PRN (21:57)
[2020-09-20] MEDS ORDERED: GLUCAGON FOR INJ 1 MG VIAL SQ PRN (21:57)
[2020-09-20] MEDS: CHOLECALCIFEROL 1,000 UNITS 25 MCG TAB PO SCH (22:57)
--- NOTE | 2020-09-21 07:59 | Magnetic Resonance Report ---
MRI OF THE BRAIN WITHOUT CONTRAST CLINICAL HISTORY: Transient ischemic attack. History of prior strokes. Dizziness, nausea, hand tingli ng. COMPARISON STUDY: Noncontrast head CT dated 09/20/2020 FINDINGS: Sagittal T1, axial diffusion, proton density and T2 weighted axial, coronal FLAIR, and axial T1-weigh mitchell images were acquired. No intra or extra-axial mass lesions are visualized Axial diffusion-weighted images reveal no evidence of acute or subacute infarction. There is no evidence of ventricular dilatation. Proton density T2-weighted and FLAIR images reveal moderate foci of increased T2 signal within the wh ite matter, likely on a small vessel basis. There are old left frontal and left parieto-occipital inf arcts. There is an old right basal ganglia lacunar infarct. There are no abnormal flow voids. Densities posterior to the cervical cord on the sagittal T1-weighted images at the C3 and C4 level, l ikely related to posterior ligamentous hypertrophy at calcification as was visualized on the prior CT angiogram. IMPRESSION: 1. No acute intracranial findings 2. No evidence of intracranial mass in this noncontrast study 3. No evidence of acute or subacute infarction 4. Old post infarct changes. ACT 112: Negative or not required by law. Electronically signed by: Reddy Anderson M.D. 09/21/2020 7:58 AM
[2020-09-21] MEDS ORDERED: CEROVITE ADV FORMULA TAB PO SCH (09:00)
[2020-09-21] MEDS ORDERED: MULTIVITAMIN TAB PO SCH (09:00)
[2020-09-21] MEDS ORDERED: ZINC SULFATE 220 MG CAPSULE PO SCH ×2 (09:00→12:00)
--- NOTE | 2020-09-21 09:14 | XCELERA ---
[id number]
[2020-09-21] MEDS ORDERED: lisinopril 10 MG TAB PO SCH (09:15)
[2020-09-21] MEDS ORDERED: ATORVASTATIN 40 MG TAB PO SCH (09:15)
[2020-09-21 10:07] LABS: Chol HDL Ratio 4; Cholesterol 188 mg/dl (0-200); HDL Cholesterol 54 mg/dl; LDL Cholesterol Calculated 113 mg/dl; Triglycerides 105 mg/dl (0-150); VLDL Cholesterol 21 mg/dl
[2020-09-21 10:30] LABS: Estimated Average Glucose 186 mg/dl; Hemoglobin A1C 8.1 % (4.5-5.6)
--- NOTE | 2020-09-21 10:42 | Neurology Consultation ---
Date of Consultation September 21, 2020 Assessment & Plan (1) TIA (transient ischemic attack): (2) Carotid stenosis, bilateral: (3) DM (diabetes mellitus): this patient had what sounds like a TIA September 15. He had slurred speech and resolved. He has had no further issue since. He does have chronic cerebral ischemia of a moderate nature noted on MRI but no acute or subacute stroke. Patient does have carotid stenosis and some vertebral stenosis on the right as noted by CT angiography. Echocardiogram was largely unremarkable. Has a history of hypertension and has some mild hypertension only. Hemoglobin A1c was 8.1. Triglycerides were 105 and cholesterol 188. Recommendations: 1. I would use clopidogrel 75 mg daily instead of aspirin in this patient. given his stenoses on CT angiography, and moderate small vessel ischemic disease I would prefer her clopidogrel over aspirin. 2. control glucose trying to bring the hemoglobin A1c down close to 7. 3. He would be a statin candidate, even with qualify for high dose. 4. control blood pressure keeping mean arterial pressure approximately 95-100. 5. I can follow as an outpatient. Overall, I spent a total of 45 minutes with this case including review of records,, review of MRI films, direct evaluation patient bedside, and discussing the case with the patient at bedside, RN at bedside, and Dr. Stack, including differential diagnosis and treatment options. History of Present Illness Reason for Consultation: Patient is a 75-year-old, who I was asked to see at the request of Dr. Zamora, for neurologic consultation regarding TIA. Requesting Physician: Dr. 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 He also has some mild hypertension on low-dose lisinopril. He has no history of heart disease or previous stroke. He was in his usual state of health when on September 15 he was at a "sportsman club" in [place]. It was very cold he was outside he was feeling "hypothermic" and shivering. He then apparently became very pale and had slurred speech and nausea. He was lightheaded and vomited once. His friends 1 the taken to the emergency room but he refused. He felt like he was going to pass out but never did actually pass out. He had no pain or headache or vision issues. He had no new weakness or numbness of the limbs. By the time he got home at 11:00 p.m. that night he felt much better. The worst of the episode lasted 2-3 hours. His speech was back to normal. He ended up coming to the emergency room on September 20 at 1416, with a temperature 37.3, pulse 89, respiratory rate 16, blood pressure 133/93, and O2 saturation 97% Neurologic examination was unremarkable. CBC was unremarkable and sed rate was 16. Glucose was 249 an urinalysis was negative. Chest x-ray was unremarkable. CT scan of the head showed no acute changes. CT angiography of the head and neck revealed a dominant left vertebral with high-grade stenosis at be 2 in the right vertebral. Carotid bulbs had approximately 50% stenosis bilaterally. MRI of the brain showed moderate old diffuse small-vessel ischemic changes and no acute/subacute stroke. I reviewed these films. He has had no further episodes overnight and has been in sinus rhythm in the 70s and 80s. He has no pain, headache, weakness, numbness, speech issues, or visual problems. He does have left greater than right rotator cuff injuries from many years ago. Allergies Allergy/AdvReac Type Severity Reaction Status Date / Time No Known Allergies Allergy Verified 09/20/20 18:07 Home Medications Medication Instructions Recorded Confirmed Type cholecalciferol (vitamin D3) 25 mcg PO BID 09/20/20 09/20/20 History [Vitamin D3] fluticasone propionate 2 spray INTRANASAL DAILY PRN 09/20/20 09/20/20 History insulin glargine [Lantus U-100 14 - 15 unit SUBCUT HS 09/20/20 09/20/20 History Insulin] lisinopril 10 mg PO HS 09/20/20 09/20/20 History multivitamin 1 tab PO QAM 09/20/20 09/20/20 History vit C-E-zinc edc-tikddn-waggye 1 tab PO DAILY 09/20/20 09/20/20 History [Ocuvite Eye Health] zinc sulfate 50 mg PO DAILY 09/20/20 09/20/20 History Patient History Medical History DM (diabetes mellitus) Essential (primary) hypertension Surgical History S/P rotator cuff repair 2 on right; 1 on left Family History Mother Myocardial infarction Stroke Parkinson disease Social History Smoking Status: Never smoker Tobacco Type: Smokeless Tobacco (Dip or Chew) Second Hand Exposure: No; Do You Dip or Chew Tobacco: Yes; Tobacco Cessation Education Requested by Patient: No Hx Alcohol Use: Yes Alcohol type: hard liquor Alcohol Intake Frequency: 2-4 x/Month Hx Substance Use: No Preferred Language: Surinamese Communication Ability: Effective 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 Beliefs That Will Affect Care: None marital status: Current Living Situation: Spouse current occupational status: retired current occupation: [employer] How many Children do You have: 3 Other Information That Helps Us Care for You: No Feels Safe at Home: Yes Safety Concerns: Feels Safe At This Time Assistive Devices: Denture - Upper and Denture - Lower Review of Systems Constitutional: no fever, no fatigue and no weakness Eyes: no diplopia, no eye pain and no worsening vision Ear, Nose, Mouth, Throat: no ear pain, no tinnitus, no hearing loss, no dizziness, no hoarseness and no dysphagia Respiratory: no cough and no dyspnea Cardiovascular: no chest pain, no palpitations and no lightheadedness Gastrointestinal: no abdominal pain, no nausea and no vomiting Genitourinary: no urinary frequency and no urinary incontinence Musculoskeletal: no back pain, no neck pain, no radicular pain, no joint pain and no myalgia Integumentary: no rash and no lesions Neurologic: no gait abnormality, no localized weakness, no generalized weakness, no tingling, no numbness, no tremor(s), no abnormal movements, no headache(s), no abnormal speech, no confusion and no memory loss Psychiatric: no depression, no irritability, no anxiety, no difficulty concentrating, no confusion and no hallucinations Endocrine: no fatigue and no flushing Hematologic / Lymphatic: no easy bleeding and no easy bruising Allergy / Immunological: no urticaria and no problem reported Exam (Neuro) Physical Exam: The patient is right-handed. The patient is awake, alert, and attentive. Speech is normal without any aphasia or dysarthria. he can name objects, repeat phrases, and has normal spontaneous speech. Mentation and thought processes are intact, with orientation to person, place and time, and normal fund of knowledge. Attention and concentration are normal. Mood and affect are normal and appropriate. General appearance and grooming are normal. Short and long-term memory are intact. Extraocular eye muscles are intact without nystagmus. Visual acuity and visual stephenson seem normal grossly to confrontation. There are no deficits to sensation in the face in all 3 distributions of the fifth cranial nerve bilaterally. Corneal reflexes are positive bilaterally. Facial strength and symmetry was normal bilaterally. Hearing seems normal to whisper and finger rub bilaterally. Palate moves well without asymmetry. There is normal sternocleidomastoid and trapezius (shoulder shrug) strength bilaterally. Tongue is midline with good strength bilaterally. Neck has a full range of motion without discomfort. There are no cervical bruits bilaterally. There are no cranial or ocular bruits. Heart is without murmur. There is a regular rhythm and rate. Cervical, thoracic, and lumbar spine are nontender to palpation. Gait is narrow based, with good arm swing, turns, and stance. With outstretched arms there is no drift. There are no resting, postural, or action tremors. There is no ataxia with finger to nose testing. There is good facility in the hands. No other abnormal involuntary movements are noted. Motor strength is 5/5 diffusely in the arms bilaterally including deltoids, biceps, triceps, brachioradialis, wrist flexors and extensors, customer success manager, and intrinsic hand muscles. Motor strength is 5/5 diffusely in the legs bilaterally including hip flexors, quadriceps, hamstrings, gastrocnemius, tibialis anterior, tibialis posterior, and Peroneii muscles. Toe extensors are normal and there is good bulk in the extensor digitorum brevis muscles bilaterally. The limbs have good tone without rigidity or spasticity. There is no atrophy noted in the muscles. Muscle bulk is normal, there is no tenderness to palpation, no myotonia to percussion, and no fasciculations seen. Sensory examination is intact to touch and pin throughout all 4 limbs diffusely. . Reflexes are 1/4 in the biceps, triceps, brachioradialis, quadriceps, and Achilles tendons bilaterally. There is no clonus bilaterally. Toes are downgoing with plantar stimulation bilaterally. Peripheral pulses are present and of normal quality distally in all 4 limbs. There is no peripheral edema noted in the limbs. Results & Data ([facility]) Vital Signs (Past 12 Hours) Vital Signs Temp Pulse Pulse Resp BP Pulse Ox 09/21/20 08:00 36.6 C 64 18 156/89 H 98 09/21/20 04:17 36.7 C 62 18 157/94 H 97 09/20/20 23:00 76 09/20/20 22:48 36.9 C 75 19 157/98 H 96 PG Care Time/CCT Total # of Minutes Spent Total Time Spent with Patient: Total time spent is greater than 50% in coordination of care (as documented) at patient's floor/unit and/or counseling patient: Coding Level of Care Code 63225 OBS Care - Level 3 Diagnoses TIA (transient ischemic attack) G45.9 Carotid stenosis, bilateral I65.23 DM (diabetes mellitus) E11.9 Time Spent (min) 45
[2020-09-21] MEDS: CHOLECALCIFEROL 1,000 UNITS 25 MCG TAB PO SCH (11:08)
[2020-09-21] MEDS ORDERED: CLOPIDOGREL BISULFATE 75 MG TAB PO SCH (11:15)
[2020-09-21] MEDS ORDERED: INSULIN ASPART 100 UNITS/ML 3 ML PEN SC SCH (11:30)
--- NOTE | 2020-09-21 11:47 | Discharge Summary ---
Date of Service September 21, 2020 Admission HPI Per Admitting Provider 75yo male with history of diabetes who was traveling in [place] last for an outdoor gun competition. He states it was very cold and he started to walk to his friend's truck to warm up. He felt unsteady on his feet as he was walking. By the time he got to the truck he was feeling dizzy/lightheaded. He laid down on the floor of the interior of the truck. The dizziness continued. His friends said he looked pale. Speech was slurry. He had nausea followed by vomiting. After vomiting he remained seated on the floor of the truck and slowly felt better. Friends encouraged him to go to the hospital but he refused. He was leaving to travel to [place] the next day to see his son and didn't want to go to the hospital for fear he would miss his trip. All symptoms largely resolved and he felt well enough to go to a local tavern to drink whiskey and eat a large hamburger later that night. Of note - he did not check his blood sugar at the time of the event. Went to [place] on Saturday; came back to [place] on Saturday. [place] fine all weekend. Just tired. He came to our ER today because he told his about the incident for the first time today and she demanded that he come for evaluation. Principal Diagnosis TIA Discharge Exam Constitutional WD/WN, vitals as above Eyes + anicteric sclerae and EOM intact bilaterally Neck trachea midline, no thyromegaly Respiratory normal respiratory effort, lungs clear to auscultation Cardiovascular RRR, no murmur, no edema Chest (Breasts) Chest: normal inspection of chest Gastrointestinal (Abdomen) normal bowel sounds, soft, nontender, no hepatosplenomegaly Musculoskeletal Extremities: extremities normal to inspection; no cyanosis and no clubbing Skin no rashes, warm and dry Neurologic PERRL, EOMI, accommodation nl, no face palsy, no dysarthria CN's II-XI intact bilaterally, moves all extremities and awake; no focal motor deficits Psychiatric A+Ox3, euthymic affect Lymphatic no lymphedema Discharge Data Allergies Allergy/AdvReac Type Severity Reaction Status Date / Time No Known Allergies Allergy Verified 09/20/20 18:07 Consultations 09/20/20 18:40 ED Decision to Admit Stat 09/20/20 20:25 Consult Neurology Routine Ordered Studies 09/20/20 16:25 CT angio head w con Stat CT angio neck with con Stat CT head/brain wo con Stat 09/20/20 20:25 MR brain wo con Routine ECHO CXR Hospital Course (1) TIA (transient ischemic attack): Occurred on 09/15 with symptoms of headache, dizziness, N/V, slurred speech and disoriented feeling Resolved after 2 hours and did not seek medical attention until 09/20 Has 3 old CVAs on MRI brain CTA H/N with severe rt vertebral artery stenosis and moderate bilat EMERY ECHO mild AI and mild-mod MR, no PFO/ASD/thrombus No events on tele most likely small vessel disease, no need for cardiac event monitor as per my d/w Neuro -start Plavix 75mg daily -start high intensity statin atorvastatin 40mg daily -improve BP control-increase lisinopril to 20mg daily -improved DM control-typically reports A1C of 7.0% but here is 8.1%-he states his recent bottle of Lantus went bad and was recently having glucose in the 400s. He got a new bottle and now improved control-f/u with PCP -PT/OT consults-stable for dc , no deficits he is very active and exercises frequently (2) Near syncope: 2/2 TIA as above (3) Cerebrovascular disease: MRI brain confirms 3 old CVAs - silent- as patient is not aware of them and reports no prior stroke symptoms. L frontal; L parietal; R basal ganglia. as above (4) Hypertension: increase lisinopril to 20mg as above (5) DM (diabetes mellitus): as above, continue Lantus at home for now f/u PCP (6) Vertebral artery stenosis: severe based on CTA findings. as above (7) Tobacco abuse: nicotine gum prn branch credit counselor to quit chewing and he is already working on this at home the last 3 weeks has cut down to one can q4 days (8) Carotid artery stenosis: as above (9) DVT prophylaxis: SCDs Dispo-dc to home Total Time Total Time Spent Total Time Spent (In Minutes): 35 min Total Time Includes: Examination of the Patient, Discharge Planning, Medication Reconciliation and Communication With Other Providers (Neuro) Discharge Plan Discharge Items Patient Disposition: Home - Self-Care Reason For Visit: TIA VS STROKE Discharge Diagnosis: TIA Condition on Discharge: Good Activity: Resume your previous activity Non-emergency contact: Primary Care Provider and Neurologist Call non-emergency contact if: you have any medication questions and your symptoms worsen Follow-up/Referrals: Joseph Garcia MD [Physician] - (Follow up within [address] PETERS OFFICE WILL CALL YOU WITH A FOLLOW UP APT) Ronen Young [Primary Care Provider] - 09/28/20 9:30 am (Follow up within 1- 2 weeks.) Diet: Carb Consistent or DM2 and Heart Healthy Addtl Attending Provider Instructions: You were admitted for a workup for stroke. You were found to have 3 old strokes on your brain MRI, but not a recent stroke. You had a transient ischemic attack (TIA) on September 15 which is a temporary blockage of a blood vessel in the brain that resolved. You have some plaque buildup and narrowing of the arteries that supply blood flow to the brain. You can prevent future strokes or TIAs by taking a blood thinner called Plavix, starting on a cholesterol lowering medication called atorvastatin, and by better controlling your blood pressure. Your lisinopril will be increased to 20mg daily. Your hemoglobin A1C here was higher than your usual at 8.1%. Please follow up with your PCP regarding improved control of your diabetes. Please follow up with your PCP within 2 weeks, and with the Neurologist within 1 month. Risk Factors for Stroke: You can reduce your chances of stroke by working with your medical provider to adopt a healthy lifestyle. Some specific ways to lower your chance of stroke are: * If you are a smoker, now is the time to stop smoking cigarettes * If you are diabetic, improve the control of your blood sugars * Avoid excessive amounts of alcohol * Control high blood pressure * Lose weight if you are overweight * Be sure to lead an active lifestyle * Eat a healthy diet low in salt, cholesterol and fat You should know about other risk factors for stroke that you are unable to control. These include: * Age 55 years or older * Male gender * Certain racial groups: , or / * Family History of Stroke, Mini stroke or Heart Attack * Sickle Cell Disease Follow Up: It is important for you to keep your follow up appointments with your medical provider. Who to Call and When: Medical Emergencies: Call 911 immediately if you experience any of the following warning signs and symptoms of Stroke: * Sudden numbness or weakness of the face, arm or leg, especially on one side of the body * Sudden confusion, trouble speaking or understanding * Sudden trouble seeing in one or both eyes * Sudden trouble walking, dizziness, loss of balance or coordination * Sudden severe headache with no cause Do not delay calling 911 if you experience any warning signs or symptoms of a stroke. Delay in seeking medical attention may affect what treatments can be given to you. . Pending Studies at Discharge: No Stand-Alone Forms: Medications to Prevent Stroke, My [facility] Medications and DC Order Prescriptions: New atorvastatin 40 mg Tablet 40 mg PO QAM Qty: 30 RF: 0 lisinopril 20 mg Tablet 20 mg PO QAM Qty: 30 RF: 0 clopidogrel 75 mg Tablet 75 mg PO QAM Qty: 30 RF: 0 Continued multivitamin Tablet 1 tab PO QAM RF: 0 Lantus U-100 Insulin 100 unit/mL solution 14 - 15 unit SUBCUT HS RF: 0 fluticasone propionate 50 mcg/actuation spray,suspension 2 spray INTRANASAL DAILY PRN (Reason: Nasal Congestion) RF: 0 cholecalciferol (vitamin D3) [Vitamin D3] 25 mcg (1,000 unit) Capsule 25 mcg PO BID RF: 0 zinc sulfate 50 mg zinc (220 mg) Capsule 50 mg PO DAILY RF: 0 Ocuvite Eye Health 50 mg-15 unit- 4.5 mg-2.5 mg Tablet,Chewable 1 tab PO DAILY RF: 0 Discontinued lisinopril 10 mg tablet 10 mg PO HS RF: 0 Discharge Orders: Discharge Order (Routine); Ordered 09/21/20 Ordered By: Crystal Stack Admission Data Admit Date/Time: 09/20/20 18:40 Attending Provider: Crystal Stack Admit Provider: Bandar Zamora Primary Care Provider: Ronen Young Other Providers: Bandar Zamora ; Rene Magana Coding Level of Care Code D/C Day Management >30 mins Diagnoses TIA (transient ischemic attack) G45.9 Near syncope R55 Cerebrovascular disease I67.9 Hypertension I10 DM (diabetes mellitus) E11.9 Vertebral artery stenosis I65.09 Tobacco abuse Z72.0 Carotid artery stenosis I65.29 DVT prophylaxis Z29.9
[2020-09-21] MEDS ORDERED: PHARMACIST DISCHARGE MED REC CONSULT PRN (11:49)
[2020-09-21] MEDS ORDERED: STROKE PATIENT DISCHARGE PRN (11:49)
--- NOTE | 2020-09-21 12:24 | Pharmacy Report ---
Pharmacist Stroke Counseling - Date of Service September 21, 2020 - Scope: Pharmacy has been consulted to provide medication discharge counseling for this patient admitted with ischemic stroke vs. transient ischemic attack as per the Pharmacist Discharge Counseling for Stroke Patients Protocol. - Medications on Discharge: Home Medications Medication Instructions Recorded Confirmed cholecalciferol (vitamin D3) 25 mcg PO BID 09/20/20 09/20/20 [Vitamin D3] fluticasone propionate 2 spray INTRANASAL DAILY PRN 09/20/20 09/20/20 insulin glargine [Lantus U-100 14 - 15 unit SUBCUT HS 09/20/20 09/20/20 Insulin] lisinopril 10 mg PO HS 09/20/20 09/20/20 multivitamin 1 tab PO QAM 09/20/20 09/20/20 vit C-E-zinc bkm-paczwy-vspyrh 1 tab PO DAILY 09/20/20 09/20/20 [facility] 50 mg PO DAILY 09/20/20 09/20/20 New Rx's Medication Instructions Recorded atorvastatin 40 mg PO QAM #30 tab 09/21/20 clopidogrel 75 mg PO QAM #30 tab 09/21/20 lisinopril 20 mg PO QAM #30 tab 09/21/20 - Action: The above medications, specifically ones for stroke treatment/prophylaxis, have been reviewed in detail with the patient and/or patient field service representative(s) prior to discharge. This includes indication, common adverse reactions, drug interactions, and medication administration. Medication counseling has been employed using the teach-back method to ensure understanding. - Outcome: The patient and/or patient field service representative(s) have demonstrated understanding of the medications. Additional comments: - No obvious barriers to medication compliance identified - Pillbox accepted by patient Thank you for allowing pharmacy to be involved in the care of this patient. Please call [phone] with any additional questions
--- NOTE | 2020-09-21 12:49 | Electrocardiogram Report ---
Test Reason : Blood Pressure : / mmHG Vent. Rate : 065 BPM Atrial Rate : 065 BPM P-R Int : 150 ms QRS Dur : 080 ms QT Int : 376 ms P-R-T Axes : 020 -19 014 degrees QTc Int : 391 ms Poor data quality, interpretation may be adversely affected Normal sinus rhythm Cannot rule out Anterior infarct , age undetermined Abnormal ECG When compared with ECG of 09-OCT-1996 10:28, Minimal criteria for Anterior infarct are now Present Confirmed by Andrez Hines ([id number]) on 09/21/2020 12:48:54 PM Referred By: REFERRED SELF Confirmed By:Andrez Hines
[2020-09-22] MEDS ORDERED: lisinopril 20 MG TAB PO SCH (09:00)
== END 2020-09-21 13:50 | disposition home or self-care (01) ==
LOC: ED 14:08 → INTOOBSV 18:40 → 2S 18:40 → SUATTDRO 18:40 → 2S 20:08

== ENCOUNTER 2024-05-06 21:57 | Inpatient (IN) ==
--- NOTE | 2024-05-06 22:41 | Emergency Department Note ---
History of Present Illness General Chief complaint: TIA Symptoms Stated complaint: SPEECH, CANNOT WRITE, POSS STROKE Time Seen by Provider: 05/06/24 22:09 History of Present Illness This 78-year-old male that chews tobacco presents ER complaining of difficulty word finding since he got up this morning. was concerned when she got home today and brought him in. Patient denies chest pain, dyspnea, numbness, tingling, localized weakness, visual loss or changes. Patient ambulated in to without difficulties. Home Medications Medication Instructions Recorded Confirmed Type cholecalciferol (vitamin D3) 25 25 mcg PO BID 09/20/20 05/07/24 History mcg (1,000 unit) capsule (Vitamin D3) fluticasone propionate 50 2 spray intranasal DAILY PRN Nasal 09/20/20 05/07/24 History mcg/actuation nasal Congestion spray,suspension insulin glargine 100 unit/mL 20 unit subcut HS 09/20/20 05/07/24 History subcutaneous solution (Lantus U-100 Insulin) multivitamin 1 tab PO QAM 09/20/20 05/07/24 History vit C 50 mg-E 15 unit-zinc cit 4.5 1 tab PO QAM 09/20/20 05/07/24 History mg-lutein 2.5 mg-zeaxan chew tablet ([facility]) zinc sulfate 50 mg zinc (220 mg) 50 mg PO QAM 09/20/20 05/07/24 History capsule ibuprofen 800 mg tablet 800 mg PO TID PRN Pain 10/26/20 05/07/24 History ketoconazole 2 % shampoo 1 applic topical UD 05/07/24 05/07/24 History losartan 100 mg tablet 100 mg PO QAM 05/07/24 05/07/24 History triamcinolone acetonide 0.1 % 1 applic topical UD 05/07/24 05/07/24 History topical cream Allergies Allergy/AdvReac Type Severity Reaction Status Date / Time atorvastatin AdvReac Severe Headache,weakness,back Verified 05/07/24 00:28 pain. lisinopril AdvReac Intermediate Cough Verified 05/07/24 00:28 Past Med/Surg History Problem List (Updated 05/07/24 @ 01:11 by Lupis Aponte PA-C) Slurred speech (Acute) Carpal tunnel syndrome on both sides Low back pain Headache History of rheumatic fever as a child Normal left ventricular systolic function and wall motion Aortic regurgitation Mitral regurgitation Antiplatelet or antithrombotic long-term use Dyslipidemia Carotid artery stenosis Carotid stenosis, bilateral TIA (transient ischemic attack) (Acute) Tobacco abuse DVT prophylaxis Near syncope Vertebral artery stenosis Cerebrovascular disease Diabetes (Acute) Hypertension (Acute) S/P rotator cuff repair 2 on right; 1 on left Essential (primary) hypertension DM (diabetes mellitus) (Chronic) Gastrocnemius muscle tear (Acute) Gastrocnemius muscle tear (Acute) Medical History Aortic regurgitation Carotid artery stenosis DM (diabetes mellitus) Dyslipidemia Essential (primary) hypertension History of rheumatic fever as a child Mitral regurgitation Surgical History S/P rotator cuff repair Family History Mother Myocardial infarction Stroke Parkinson disease Social History Smoking Status: Never smoker Tobacco Type: Smokeless Tobacco (Dip or Chew) Second Hand Exposure: No; Do You Dip or Chew Tobacco: Yes; Hx Alcohol Use: Yes Alcohol type: hard liquor Alcohol Intake Frequency: 2-4 x/Month Hx Substance Use: No Preferred Language: Israeli Communication Ability: Effective 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 Beliefs That Will Affect Care: None marital status: Current Living Situation: Spouse current occupational status: retired 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 How many Children do You have: 3 Feels Safe at Home: Yes Assistive Devices: None Review of Systems A total of 10 systems reviewed and were otherwise negative Physical Exam Vital Signs Vital Signs - 24 hr 05/06/24 22:02 05/07/24 00:06 Temperature 36.6 C Temperature Source Temporal Artery Scan Pulse Rate 78 Pulse Rate [Apical] 62 Respiratory Rate 18 14 Respiratory Effort / Characteristics Non-Labored Non-Labored Spontaneous Respiratory Depth Normal Normal Respiratory Pattern Regular Blood Pressure 187/114 H Blood Pressure [Left Arm] 174/104 H Blood Pressure Mean 138 Blood Pressure Mean [Left Arm] 127 Pulse Oximetry 99 98 Oxygen Delivery Method Room Air Room Air Sepsis Recent Fever Within 48 Hours No Sepsis New/Unexplained Change in Mental Status No Sepsis Action Taken by Nursing No Action Required VITALS: Vitals are noted on the nurse's note and reviewed by myself. Vital signs stable. GENERAL: Pleasant gentleman, in no acute distress, nondiaphoretic, well- developed well-nourished. SKIN: The skin was without rashes, erythema, edema, or bruising. There is no tenting of the skin. Capillary reflex less than 2 seconds. HEAD: Normocephalic atraumatic. EARS: External auditory canals clear EYES: Pupils equal round and reactive to light and accommodation. Conjunctivae without injection, sclerae without icterus. Extraocular movements intact. NOSE: Patent, no discharge. MOUTH: Mucous membranes moist. Pharynx without erythema or exudate. Uvula midline. Airway patent. Tongue does not deviate. NECK: Supple without nuchal rigidity. No lymphadenopathy. No thyromegaly. Cervical spine is nontender. No JVD. HEART: Regular rate and rhythm LUNGS: Clear to auscultation bilaterally without wheezes, rales or rhonchi. No retractions or accessory muscle use. ABDOMEN: Positive bowel sounds x 4. Normal tympanic percussion. Soft, nontender, without masses or organomegaly. Srinivasan sign negative. No guarding or rebound tenderness. No CVA tenderness MUSCULOSKELETAL: No muscle atrophy, erythema, or edema noted. 5-5 strength throughout. NEURO: Patient was alert and oriented to person place and time. Normal sensation to light and sharp touch. No focal neurological deficits. Course Administered Medications Discontinued Medications Dextrose (Dextrose 50% 50 Ml Syringe) Confirm Administered Dose 50 ml IV .STK- MED ONE Stop: 05/07/24 01:01 Last Admin: 05/07/24 01:02 Dose: 50 ml Documented By: CLARA Ioversol (Optiray 320 125ml) 125 ml IV ONCE ONE Stop: 05/06/24 22:52 Last Admin: 05/06/24 22:53 Dose: 118 ml Documented By: REGINALD Medical Decision Making Medical Records Attestation: I reviewed the patient's medical records. Home Medications Current Medication List: was personally reviewed by me Laboratory Data Attestation: I reviewed the patient's lab results. 05/06/24 22:25 05/06/24 22:25 Lab Results 05/06/24 05/06/24 05/06/24 Range/Units 22:25 22:30 22:36 WBC 5.06 (4.8-10.8) K/ul RBC 4.34 L (4.70-6.10) M/uL Hgb 13.4 L (14.0-18.0) g/dl POC Hgb 13.6 L (14.0-18.0) g/dl Hct 39.9 L (42.0-52.0) % POC Hct 40 L (42-52) % MCV 91.9 (80.0-100.0) fL MCH 30.9 (25.0-34.0) pg MCHC 33.6 (32.0-36.0) g/dL RDW Std Deviation 45.1 (36.4-46.3) fL RDW Coeff of Levar 13.3 (11.5-14.5) % Plt Count 197 (130-400) K/uL MPV 10.3 (9.4-12.4) fL Immature Gran % (Auto) 0.2 % Neut % (Auto) 52.4 % Lymph % (Auto) 31.4 % [place] % (Auto) 10.5 % Eos % (Auto) 4.5 % Baso % (Auto) 1.0 % Neut # (Auto) 2.65 (1.40-6.50) K/uL Lymph # (Auto) 1.59 (1.20-3.40) K/uL [place] # (Auto) 0.53 (0.11-0.59) K/uL Eos # (Auto) 0.23 (0.00-0.50) K/uL Baso # (Auto) 0.05 (0.00-0.20) K/uL Immature Gran # (Auto) 0.01 (0.01-0.20) K/uL PT Cancelled INR Cancelled APTT Cancelled PTT Ratio Cancelled POC Sodium 142 (135-144) mmol/L Sodium 140 (136-145) mmol/L POC Potassium 4.2 (3.3-5.0) mmol/L Potassium 4.4 (3.5-5.1) mmol/L POC Chloride 108 (101-112) mmol/L Chloride 108 H (98-107) mmol/L Carbon Dioxide 27 (21-32) mmol/L POC Total CO2 23 L (24-31) mmol/L Anion Gap 5 (3-11) POC Anion Gap 16.0 (16-25) mmol/L POC BUN 27 H (7-18) mg/dl BUN 23 (6-23) mg/dl Creatinine 1.26 (0.6-1.4) mg/dl POC Creatinine 1.3 (0.6-1.3) mg/dl Est Cr Clr Drug Dosing 40.5 ml/min eGFR 58.38 BUN/Creatinine Ratio 18.3 (10-20) Glucose 188 H (70-99(Fasting)) mg/dl POC Glucose (70-99) mg/dl POC Glucose (other) 191 H (70-99) mg/dl Calcium 9.5 (8.6-10.3) mg/dl POC Ioniz Calcium George 1.15 (1.12-1.32) mmol/l Magnesium 2.1 (1.7-2.4) mg/dl Total Bilirubin 0.4 (0.2-1.0) mg/dl AST 24 (13-39) U/L ALT 15 (7-52) U/L Alkaline Phosphatase 82 (34-104) U/L Troponin I High Sens 14.3 (0-20) pg/ml Total Protein 7.1 (6.0-8.3) gm/dl Albumin 4.1 (3.4-5.0) gm/dl Globulin 3.0 (2.5-4.0) gm/dl Albumin/Globulin Ratio 1.4 (0.9-2) Blood Type A Negative Antibody Screen NEGATIVE 05/06/24 05/07/24 Range/Units 23:09 00:58 WBC (4.8-10.8) K/ul RBC (4.70-6.10) M/uL Hgb (14.0-18.0) g/dl POC Hgb (14.0-18.0) g/dl Hct (42.0-52.0) % POC Hct (42-52) % MCV (80.0-100.0) fL MCH (25.0-34.0) pg MCHC (32.0-36.0) g/dL RDW Std Deviation (36.4-46.3) fL RDW Coeff of Levar (11.5-14.5) % Plt Count (130-400) K/uL MPV (9.4-12.4) fL Immature Gran % (Auto) % Neut % (Auto) % Lymph % (Auto) % [place] % (Auto) % Eos % (Auto) % Baso % (Auto) % Neut # (Auto) (1.40-6.50) K/uL Lymph # (Auto) (1.20-3.40) K/uL [place] # (Auto) (0.11-0.59) K/uL Eos # (Auto) (0.00-0.50) K/uL Baso # (Auto) (0.00-0.20) K/uL Immature Gran # (Auto) (0.01-0.20) K/uL PT 10.5 INR 1.0 APTT 24 PTT Ratio 0.9 POC Sodium (135-144) mmol/L Sodium (136-145) mmol/L POC Potassium (3.3-5.0) mmol/L Potassium (3.5-5.1) mmol/L POC Chloride (101-112) mmol/L Chloride (98-107) mmol/L Carbon Dioxide (21-32) mmol/L POC Total CO2 (24-31) mmol/L Anion Gap (3-11) POC Anion Gap (16-25) mmol/L POC BUN (7-18) mg/dl BUN (6-23) mg/dl Creatinine (0.6-1.4) mg/dl POC Creatinine (0.6-1.3) mg/dl Est Cr Clr Drug Dosing ml/min eGFR BUN/Creatinine Ratio (10-20) Glucose (70-99(Fasting)) mg/dl POC Glucose 56 L* (70-99) mg/dl POC Glucose (other) (70-99) mg/dl Calcium (8.6-10.3) mg/dl POC Ioniz Calcium George (1.12-1.32) mmol/l Magnesium (1.7-2.4) mg/dl Total Bilirubin (0.2-1.0) mg/dl AST (13-39) U/L ALT (7-52) U/L Alkaline Phosphatase (34-104) U/L Troponin I High Sens (0-20) pg/ml Total Protein (6.0-8.3) gm/dl Albumin (3.4-5.0) gm/dl Globulin (2.5-4.0) gm/dl Albumin/Globulin Ratio (0.9-2) Blood Type Antibody Screen Imaging Data Attestation: I personally reviewed and interpreted this imaging study as follows: Radiologist's Impression: Head CT 05/06/24 22:16 CR Exam(s): CT HEAD Without Contrast EXAM: CT Head Without Intravenous Contrast CLINICAL HISTORY: neuro deficit, acute stroke suspected. TECHNIQUE: Axial computed tomography images of the head/brain without intravenous contrast. CTDI is 29.56 mGy and DLP is 512 mGy-cm. Automated exposure control was utilized for the study. A dose lowering technique was utilized adhering to the principles of ALARA. COMPARISON: CT head without contrast dated 09/20/2020 FINDINGS: Brain: No intracranial hemorrhage. No significant mass effect. Similar subtle encephalomalacia involving the left anterolateral frontal region. There is a new area of encephalomalacia involving the posterior left parietal region; however, this appears late subacute to chronic. Diffuse underlying parenchymal involutional changes, similar to the previous examination. Extensive deep white matter hypodense changes, similar. Ventricles: No midline shift or ventriculomegaly. No effacement of the ventricles. Bones/joints: Unremarkable. No acute fracture. Soft tissues: Unremarkable. Sinuses: Unremarkable as visualized. No acute sinusitis. Mastoid air cells: Unremarkable as visualized. No mastoid effusion. IMPRESSION: 1. No intracranial hemorrhage. No significant mass effect or midline shift. 2. There is a new area of encephalomalacia involving the posterior left parietal region when compared to the previous examination. However, the appearance suggests a late subacute to chronic process. Stable encephalomalacia involving the anterolateral left frontal region. 3. Diffuse underlying parenchymal involutional changes and extensive presumed chronic periventricular microvascular changes noted. Communications: Call Doctor Stroke Electronically signed by: Manny Donato MD 05/06/24 23:52 PM Head CTA 05/06/24 22:16 CR Exam(s): CTA HEAD With Contrast IV Amt: 118 ML OPTIRAY 320 EXAM: CT Angiography Head With Intravenous Contrast CLINICAL HISTORY: neuro deficit, acute stroke suspected. TECHNIQUE: Axial computed tomographic angiography images of the head with intravenous contrast. CTDI is 29.56 mGy and DLP is 512.02 mGy-cm. Automated exposure control was utilized for the study. A dose lowering technique was utilized adhering to the principles of ALARA. MIP reconstructed images were created and reviewed. CONTRAST: Patient received 118 ML OPTIRAY 320 of IV contrast COMPARISON: CTA head dated 09/20/2020 FINDINGS: Right internal carotid artery: Minimally progressive atherosclerotic calcification of the right cavernous and supraclinoid internal carotid artery without significant stenosis. The petrous segment is patent. No aneurysm. Right anterior cerebral artery: Unremarkable. No occlusion or significant stenosis. No aneurysm. Right middle cerebral artery: Unremarkable. No occlusion or significant stenosis. No aneurysm. Right posterior cerebral artery: The proximal right posterior cerebral artery narrowing noted on the previous examination is stable and is considered mild to moderate on this examination. The distal posterior cerebral artery is patent. No aneurysm. Right vertebral artery: The right vertebral artery is small in caliber, measuring only 1-2 mm, but is stable from the previous examination. Left internal carotid artery: Similar mild atherosclerotic calcification of the left cavernous and supraclinoid internal carotid artery without significant stenosis. The petrous segment is patent. No aneurysm. Left anterior cerebral artery: Unremarkable. No occlusion or significant stenosis. No aneurysm. Left middle cerebral artery: Unremarkable. No occlusion or significant stenosis. No aneurysm. Left posterior cerebral artery: Unremarkable. No occlusion or significant stenosis. No aneurysm. Left vertebral artery: The left vertebral artery is dominant, stable in appearance. Basilar artery: Unremarkable. No occlusion or significant stenosis. No aneurysm. Brain: No abnormal parenchymal enhancement. IMPRESSION: Negative intracranial CTA examination. No significant alteration from the prior examination. Communications: Call Doctor Stroke Electronically signed by: Manny Donato MD 05/06/24 23:56 PM Neck CTA 05/06/24 22:16 CR Exam(s): CTA NECK With Contrast IV Amt: 118 ML OPTIRAY 320 EXAM: CT Angiography Neck With Intravenous Contrast CLINICAL HISTORY: neuro deficit, acute stroke suspected. TECHNIQUE: Routine carotid CT angiography protocol was performed with intravenous contrast. NASCET criteria using the distal ICAs for comparison were used for evaluation of stenoses. CTDI is 11.81 mGy and DLP is 428.6 mGy-cm. Automated exposure control was utilized for the study. A dose lowering technique was utilized adhering to the principles of ALARA. MIP reconstructed images were created and reviewed. CONTRAST: Patient received 118 ML OPTIRAY 320 of IV contrast COMPARISON: CTA neck dated 09/20/2020 FINDINGS: VASCULATURE: Right common carotid artery: Unremarkable. No occlusion or significant stenosis. No dissection. Right internal carotid artery: Atherosclerotic calcification involving the proximal right internal carotid artery at the carotid bifurcation. No significant narrowing by NASCET criteria. The mid to distal internal carotid artery is patent. No dissection. Right external carotid artery: Unremarkable. No occlusion. Right vertebral artery: The right vertebral artery is no longer identified proximally. There is reconstitution of the mid cervical segment with the distal small bowel caliber right vertebral artery remaining patent and stable in appearance. No occlusion or significant stenosis. No dissection. Left common carotid artery: Unremarkable. No occlusion or significant stenosis. No dissection. Left internal carotid artery: Partially calcified prominent atheromatous changes involving the proximal left internal carotid artery, extending to the carotid bifurcation. There is mild to moderate, proximally 45% luminal stenosis using NASCET criteria the mid to distal left internal carotid artery is patent. No dissection. Left external carotid artery: Unremarkable. No occlusion. Left vertebral artery: The left vertebral artery is widely patent and is dominant in appearance. The previously noted moderate proximal narrowing appears mild in degree of stenosis on this examination. No dissection. Brachiocephalic and subclavian arteries: There is a normal branching pattern of the proximal great vessels without ostial stenosis. Aorta: The aortic arch is patent without dissection or aneurysm. NECK: Bones/joints: Unremarkable. No acute fracture. Soft tissues: Unremarkable. Lung apices: Clear. CAROTID STENOSIS REFERENCE USING NASCET CRITERIA: % ICA stenosis = (1 - narrowest ICA diameter/diameter of distal cervical ICA) x 100. Mild - <50% stenosis. Moderate - 50-69% stenosis. Severe - 70-94% stenosis. Near occlusion - 95-99% stenosis. Occluded - 100% stenosis. IMPRESSION: 1. The right vertebral artery is no longer identified proximally. There is reconstitution of the mid cervical segment with the distal small bowel caliber right vertebral artery remaining patent and stable in appearance. This is presumed related to retrograde filling from the contralateral dominant vertebral artery. The left vertebral artery is widely patent and stable in appearance. 2. Partially calcified prominent atheromatous changes involving the proximal left internal carotid artery, extending to the carotid bifurcation. There is mild to moderate, proximally 45% luminal stenosis using NASCET criteria the mid to distal left internal carotid artery is patent. The left common carotid artery is patent. 3. The common carotid and internal carotid arteries are patent without significant stenosis or occlusion. Communications: Call Doctor Stroke Electronically signed by: Manny Donato MD 05/07/24 00:04 AM MDM Narrative Prior records/ancillary studies reviewed and summarized above. Nursing notes reviewed. Additional history obtained from family. The patient's history was concerning for difficulty word finding. Differential diagnosis: Etiologies such as metabolic, infection, hypo/hyperglycemia, electrolyte abnormalities, cardiac sources, intracerebral event, toxicologic, neurologic, as well as others were entertained. Physical examination: As above. ER treatment provided: IV Lock An order was placed for continuous cardiac monitoring. The monitor shows a rate of 60-100 with a sinus rhythm per my interpretation. Stroke workup was initiated the patient is outside the window for TNK On reassessment the patient felt better. Diagnostics interpretation by me: ECG: Ordered for weakness EKG: Normal sinus, normal intervals, no acute ST-T wave changes. Impression normal sinus rhythm independently interpreted by myself The labs Independently Interpreted by myself revealed no worrisome leukocytosis, mild anemia, negative troponin Imaging studies: Imaging was reviewed and read by radiology. Radiology did call me over the CT scans. MRI was ordered Consultation: A consultation was placed with the hospitalist. The case was discussed and diagnostics were reviewed. The patient was evaluated in the ER for further treatment. Exam and history seem consistent with possible stroke. Patient woke up this morning with slurred speech and came to the ER at 2200. He is outside the window for TNK. NIH is a 1. Medicine was consulted and the case is discussed. Patient be admitted to the medical service. By the evaluation outlined above emergent etiologies such as infection, electrolyte abnormalities, cardiac sources, toxologic, abnormalities blood glucose, metabolic, as well as others were deemed relatively unlikely. The pt informed about the findings as listed above. All questions were answered and pleased with the treatment. The chart was completed utilizing [employer] voice recognition software. Grammatical errors, random word insertions, pronoun errors, and incomplete sentences are an occassional consequence of this system due to software limitations, ambient noise, and hardware issues. Any formal questions or concerns about the content, text, or information contained within the body of this dictation should be directly addressed to the physician process assistant for clarification. Impression & Plan TIA (transient ischemic attack), Slurred speech Discharge Plan Visit Data Chief Complaint: TIA Symptoms Stated Complaint: SPEECH, CANNOT WRITE, POSS STROKE ED Provider: Polinski,Tanya Z. ED Midlevel Provider: Lupis Aponte Discharge Problem: TIA (transient ischemic attack), Slurred speech Patient Disposition: Admitted As Inpatient Condition: Good Forms Stand Alone Forms: My [facility] Prescriptions Prescriptions: No Action ibuprofen 800 mg tablet 800 mg PO TID PRN (Reason: Pain) multivitamin Tablet 1 tab PO QAM insulin glargine [Lantus U-100 Insulin] 100 unit/mL solution 20 unit SUBCUT HS Rx Instructions: DEPENDS ON BSG AT HS fluticasone propionate 50 mcg/actuation spray,suspension 2 spray INTRANASAL DAILY PRN (Reason: Nasal Congestion) cholecalciferol (vitamin D3) [Vitamin D3] 25 mcg (1,000 unit) Capsule 25 mcg PO BID zinc sulfate 50 mg zinc (220 mg) Capsule 50 mg PO QAM Ocuvite [facility] 50 mg-15 unit- 4.5 mg-2.5 mg Tablet,Chewable 1 tab PO QAM losartan 100 mg tablet 100 mg PO QAM ketoconazole 2 % shampoo 1 applic TOPICAL UD triamcinolone acetonide 0.1 % cream 1 applic TOPICAL UD Rx Instructions: affected areas Referrals Referrals: Billy Maza MD [Primary Care Provider] -
[2024-05-06 22:42] LABS: iSTAT Creatinine 1.3 mg/dl (0.6-1.3); iSTAT Hemoglobin 13.6 g/dl (14.0-18.0); iSTAT Ionized Calcium 1.15 mmol/l (1.12-1.32); iSTAT Potassium 4.2 mmol/L (3.3-5.0)
[2024-05-06 22:50] LABS: Basophils # (auto) 0.05 K/uL (0.00-0.20); Eosinophils # (auto) 0.23 K/uL (0.00-0.50); Eosinophils % (auto) 4.5 %; Hematocrit (blood only) 39.9 % (42.0-52.0); Hemoglobin 13.4 g/dl (14.0-18.0); Immature Granulocytes # (auto) 0.01 K/uL (0.01-0.20); Immature Granulocytes % (auto) 0.2 %; Lymphocytes # (auto) 1.59 K/uL (1.20-3.40); Lymphocytes % (auto) 31.4 %; Mean Corpuscular Hemoglobin 30.9 pg (25.0-34.0); Mean Corpuscular Hgb Conc 33.6 g/dL (32.0-36.0); Mean Corpuscular Volume 91.9 fL (80.0-100.0); Mean Platelet Volume 10.3 fL (9.4-12.4); Monocytes # (auto) 0.53 K/uL (0.11-0.59); Monocytes % (auto) 10.5 %; Neutrophils # (auto) 2.65 K/uL (1.40-6.50); Neutrophils % (auto) 52.4 %; Platelet Count 197 K/uL (130-400); RDW Coefficient of Variation 13.3 % (11.5-14.5); RDW Standard Deviation 45.1 fL (36.4-46.3); Red Blood Count 4.34 M/uL (4.70-6.10); White Blood Count 5.06 K/ul (4.8-10.8)
[2024-05-06] MEDS: OPTIRAY 320 125ml IV ONE (22:53)
[2024-05-06 22:55] LABS: Albumin Globulin Ratio 1.4 (0.9-2); Albumin Level 4.1 gm/dl (3.4-5.0); BUN Creatinine Ratio 18.3 (10-20); Bilirubin,Total 0.4 mg/dl (0.2-1.0); Calcium 9.5 mg/dl (8.6-10.3); Creatinine Clr Calc Pharmacy 40.5 ml/min; Magnesium 2.1 mg/dl (1.7-2.4); Potassium 4.4 mmol/L (3.5-5.1); Total Protein 7.1 gm/dl (6.0-8.3)
[2024-05-06 23:02] LABS: Troponin I High Sensitivity 14.3 pg/ml (0-20)
--- NOTE | 2024-05-06 23:53 | CT Scan Report ---
Exam(s): CT HEAD Without Contrast EXAM: CT Head Without Intravenous Contrast CLINICAL HISTORY: neuro deficit, acute stroke suspected. TECHNIQUE: Axial computed tomography images of the head/brain without intravenous contrast. CTDI is 29.56 mGy and DLP is 512 mGy-cm. Automated exposure control was utilized for the study. A dose lowering technique was utilized adhering to the principles of ALARA. COMPARISON: CT head without contrast dated 09/20/2020 FINDINGS: Brain: No intracranial hemorrhage. No significant mass effect. Similar subtle encephalomalacia involving the left anterolateral frontal region. There is a new area of encephalomalacia involving the posterior left parietal region; however, this appears late subacute to chronic. Diffuse underlying parenchymal involutional changes, similar to the previous examination. Extensive deep white matter hypodense changes, similar. Ventricles: No midline shift or ventriculomegaly. No effacement of the ventricles. Bones/joints: Unremarkable. No acute fracture. Soft tissues: Unremarkable. Sinuses: Unremarkable as visualized. No acute sinusitis. Mastoid air cells: Unremarkable as visualized. No mastoid effusion. IMPRESSION: 1. No intracranial hemorrhage. No significant mass effect or midline shift. 2. There is a new area of encephalomalacia involving the posterior left parietal region when compared to the previous examination. However, the appearance suggests a late subacute to chronic process. Stable encephalomalacia involving the anterolateral left frontal region. 3. Diffuse underlying parenchymal involutional changes and extensive presumed chronic periventricular microvascular changes noted. Communications: Call Doctor Stroke Electronically signed by: Manny Donato MD 05/06/24 23:52 PM
--- NOTE | 2024-05-06 23:58 | CT Scan Report ---
Exam(s): CTA HEAD With Contrast IV Amt: 118 ML OPTIRAY 320 EXAM: CT Angiography Head With Intravenous Contrast CLINICAL HISTORY: neuro deficit, acute stroke suspected. TECHNIQUE: Axial computed tomographic angiography images of the head with intravenous contrast. CTDI is 29.56 mGy and DLP is 512.02 mGy-cm. Automated exposure control was utilized for the study. A dose lowering technique was utilized adhering to the principles of ALARA. MIP reconstructed images were created and reviewed. CONTRAST: Patient received 118 ML OPTIRAY 320 of IV contrast COMPARISON: CTA head dated 09/20/2020 FINDINGS: Right internal carotid artery: Minimally progressive atherosclerotic calcification of the right cavernous and supraclinoid internal carotid artery without significant stenosis. The petrous segment is patent. No aneurysm. Right anterior cerebral artery: Unremarkable. No occlusion or significant stenosis. No aneurysm. Right middle cerebral artery: Unremarkable. No occlusion or significant stenosis. No aneurysm. Right posterior cerebral artery: The proximal right posterior cerebral artery narrowing noted on the previous examination is stable and is considered mild to moderate on this examination. The distal posterior cerebral artery is patent. No aneurysm. Right vertebral artery: The right vertebral artery is small in caliber, measuring only 1-2 mm, but is stable from the previous examination. Left internal carotid artery: Similar mild atherosclerotic calcification of the left cavernous and supraclinoid internal carotid artery without significant stenosis. The petrous segment is patent. No aneurysm. Left anterior cerebral artery: Unremarkable. No occlusion or significant stenosis. No aneurysm. Left middle cerebral artery: Unremarkable. No occlusion or significant stenosis. No aneurysm. Left posterior cerebral artery: Unremarkable. No occlusion or significant stenosis. No aneurysm. Left vertebral artery: The left vertebral artery is dominant, stable in appearance. Basilar artery: Unremarkable. No occlusion or significant stenosis. No aneurysm. Brain: No abnormal parenchymal enhancement. IMPRESSION: Negative intracranial CTA examination. No significant alteration from the prior examination. Communications: Call Doctor Stroke Electronically signed by: Manny Donato MD 05/06/24 23:56 PM
[2024-05-07 00:06] LABS: Partial Thromboplastin Ratio 0.9; Partial Thromboplastin Time 24 Seconds (21-31); Prothrombin Time 10.5 Seconds (9.0-12.0)
--- NOTE | 2024-05-07 00:06 | CT Scan Report ---
Exam(s): CTA NECK With Contrast IV Amt: 118 ML OPTIRAY 320 EXAM: CT Angiography Neck With Intravenous Contrast CLINICAL HISTORY: neuro deficit, acute stroke suspected. TECHNIQUE: Routine carotid CT angiography protocol was performed with intravenous contrast. NASCET criteria using the distal ICAs for comparison were used for evaluation of stenoses. CTDI is 11.81 mGy and DLP is 428.6 mGy-cm. Automated exposure control was utilized for the study. A dose lowering technique was utilized adhering to the principles of ALARA. MIP reconstructed images were created and reviewed. CONTRAST: Patient received 118 ML OPTIRAY 320 of IV contrast COMPARISON: CTA neck dated 09/20/2020 FINDINGS: VASCULATURE: Right common carotid artery: Unremarkable. No occlusion or significant stenosis. No dissection. Right internal carotid artery: Atherosclerotic calcification involving the proximal right internal carotid artery at the carotid bifurcation. No significant narrowing by NASCET criteria. The mid to distal internal carotid artery is patent. No dissection. Right external carotid artery: Unremarkable. No occlusion. Right vertebral artery: The right vertebral artery is no longer identified proximally. There is reconstitution of the mid cervical segment with the distal small bowel caliber right vertebral artery remaining patent and stable in appearance. No occlusion or significant stenosis. No dissection. Left common carotid artery: Unremarkable. No occlusion or significant stenosis. No dissection. Left internal carotid artery: Partially calcified prominent atheromatous changes involving the proximal left internal carotid artery, extending to the carotid bifurcation. There is mild to moderate, proximally 45% luminal stenosis using NASCET criteria the mid to distal left internal carotid artery is patent. No dissection. Left external carotid artery: Unremarkable. No occlusion. Left vertebral artery: The left vertebral artery is widely patent and is dominant in appearance. The previously noted moderate proximal narrowing appears mild in degree of stenosis on this examination. No dissection. Brachiocephalic and subclavian arteries: There is a normal branching pattern of the proximal great vessels without ostial stenosis. Aorta: The aortic arch is patent without dissection or aneurysm. NECK: Bones/joints: Unremarkable. No acute fracture. Soft tissues: Unremarkable. Lung apices: Clear. CAROTID STENOSIS REFERENCE USING NASCET CRITERIA: % ICA stenosis = (1 - narrowest ICA diameter/diameter of distal cervical ICA) x 100. Mild - <50% stenosis. Moderate - 50-69% stenosis. Severe - 70-94% stenosis. Near occlusion - 95-99% stenosis. Occluded - 100% stenosis. IMPRESSION: 1. The right vertebral artery is no longer identified proximally. There is reconstitution of the mid cervical segment with the distal small bowel caliber right vertebral artery remaining patent and stable in appearance. This is presumed related to retrograde filling from the contralateral dominant vertebral artery. The left vertebral artery is widely patent and stable in appearance. 2. Partially calcified prominent atheromatous changes involving the proximal left internal carotid artery, extending to the carotid bifurcation. There is mild to moderate, proximally 45% luminal stenosis using NASCET criteria the mid to distal left internal carotid artery is patent. The left common carotid artery is patent. 3. The common carotid and internal carotid arteries are patent without significant stenosis or occlusion. Communications: Call Doctor Stroke Electronically signed by: Manny Donato MD 05/07/24 00:04 AM
[2024-05-07] MEDS ORDERED: SODIUM CHLORIDE 0.9% 1,000 ML IV SCH (01:00)
--- NOTE | 2024-05-07 01:00 | History & Physical Report ---
Date of Service May 07, 2024 Assessment & Plan (1) Stroke-like symptoms: (2) Slurred speech: (3) Difficulty writing: (4) Cerebrovascular disease: (5) Hypoglycemia due to type 2 diabetes mellitus: (6) Tobacco abuse: Plan Strokelike symptoms- Patient awoke this morning with symptoms of slurred speech, difficulty writing, and some mild confusion. CT scan of head without contrast notes a possible new left parietal late subacute/chronic lesion with chronic small vessel disease CTA head was negative CTA neck showed a 45% proximal LICA stenosis MRI brain showed no new findings. Gliotic changes in the left frontoparietal lobe, likely explains CT head findings Stroke without thrombolytic order set Permissive hypertension, holding losartan in the morning Patient had been on aspirin 81 mg daily and clopidogrel 75 mg daily in 2020. The clopidogrel was stopped, and the patient stopped the aspirin on his own Start aspirin 81 mg daily Patient had atorvastatin stopped due to a reported headache developing, is willing to start rosuvastatin 10 mg daily Consult PT/OT/speech/neurology Hypoglycemia in diabetes mellitus- Patient's glucose on laboratory was 188, however, he had an episode of slurring of speech and confusion with sweats, repeat blood sugar by fingerstick at that time was 56 Patient was given 50 mL of D50, glucose went up to 216, and by reassessment after that the patient was significantly improved compared to the first time I saw him earlier this evening. Suggesting that at least part of his symptoms in the morning may have been related to hypoglycemia, and he may need to have his glargine 20 units at bedtime reduced. His glucose had decreased to 116 by the time he was to get his MRI, therefore is placed on D5 half-normal saline at 80 mL/h x 1 L Placed on Accu-Cheks before meals and at bedtime with NovoLog coverage per scale, with checks every hour as needed to monitor for hypoglycemia. His insulin was resumed at 10 units at bedtime starting 05/07 Check hemoglobin A1c Tobacco use disorder- Cessation counseling History of Present Illness Chief Complaint: The patient is brought to the emergency department due to his 's concerns regarding patient having difficulty with word finding, inability to write due to confusion, and concerns regarding a possible stroke, that began upon waking up in the morning Primary Care Provider: Billy Maza MD The patient is a 78-year-old male with a past medical history including dyslipidemia, carotid artery stenosis bilaterally, history of TIA, tobacco abuse, vertebral artery stenosis, cerebrovascular disease, diabetes mellitus, hypertension. He presents to the emergency department with symptoms as noted above. Allergies Allergy/AdvReac Type Severity Reaction Status Date / Time atorvastatin AdvReac Severe Headache,weakness,back Verified 05/07/24 00:28 pain. lisinopril AdvReac Intermediate Cough Verified 05/07/24 00:28 Home Medications Medication Instructions Recorded Confirmed Type cholecalciferol (vitamin D3) 25 25 mcg PO BID 09/20/20 05/07/24 History mcg (1,000 unit) capsule (Vitamin D3) fluticasone propionate 50 2 spray intranasal DAILY PRN Nasal 09/20/20 05/07/24 History mcg/actuation nasal Congestion spray,suspension insulin glargine 100 unit/mL 20 unit subcut HS 09/20/20 05/07/24 History subcutaneous solution (Lantus U-100 Insulin) multivitamin 1 tab PO QAM 09/20/20 05/07/24 History vit C 50 mg-E 15 unit-zinc cit 4.5 1 tab PO QAM 09/20/20 05/07/24 History mg-lutein 2.5 mg-zeaxan chew tablet ([employer]) zinc sulfate 50 mg zinc (220 mg) 50 mg PO QAM 09/20/20 05/07/24 History capsule ibuprofen 800 mg tablet 800 mg PO TID PRN Pain 10/26/20 05/07/24 History ketoconazole 2 % shampoo 1 applic topical UD 05/07/24 05/07/24 History losartan 100 mg tablet 100 mg PO QAM 05/07/24 05/07/24 History triamcinolone acetonide 0.1 % 1 applic topical UD 05/07/24 05/07/24 History topical cream Past Med/Surg History Problem List (Updated 05/07/24 @ 02:50 by Cristian Slater MD) Hypoglycemia due to type 2 diabetes mellitus Difficulty writing Stroke-like symptoms Slurred speech (Acute) Carpal tunnel syndrome on both sides Low back pain Headache History of rheumatic fever as a child Normal left ventricular systolic function and wall motion Aortic regurgitation Mitral regurgitation Dyslipidemia Carotid artery stenosis Carotid stenosis, bilateral TIA (transient ischemic attack) (Acute) Tobacco abuse DVT prophylaxis Near syncope Vertebral artery stenosis Cerebrovascular disease Diabetes (Acute) Hypertension (Acute) S/P rotator cuff repair 2 on right; 1 on left Essential (primary) hypertension DM (diabetes mellitus) (Chronic) Gastrocnemius muscle tear (Acute) Gastrocnemius muscle tear (Acute) Family History Mother Myocardial infarction Stroke Parkinson disease Social History Smoking Status: Never smoker Tobacco Type: Smokeless Tobacco (Dip or Chew) Second Hand Exposure: No; Do You Dip or Chew Tobacco: Yes; Hx Alcohol Use: Yes Alcohol type: hard liquor Alcohol Intake Frequency: 2-4 x/Month Hx Substance Use: No Preferred Language: Colombian Communication Ability: Effective Radio Communications Mechanician Required: No Beliefs That Will Affect Care: None marital status: Current Living Situation: Spouse current occupational status: retired current occupation: [employer] How many Children do You have: 3 Feels Safe at Home: Yes Assistive Devices: None Review of Systems Review of Systems: The patient denies chest pain, palpitations, shortness of breath, dyspnea on exertion, cough, lower extremity swelling, sore throat, fevers, chills, sweats, nausea, vomiting, diarrhea , constipation, abdominal pain, pelvic pain, blood in urine or stool, dysuria, urinary frequency or urgency, loss of consciousness, rash, abnormal bruising or bleeding, focal weakness, numbness or tingling in arms or legs, generalized arthralgias or myalgias, back or neck pain, or night sweats. The review of systems is otherwise negative other than for that already noted above, and at least 10 systems have been reviewed. Physical Exam Physical Exam: The patient is awake, mildly confused, normocephalic and atraumatic, lying in bed and in no acute distress. HEENT--PERRL, EOMI, mucous membranes and oropharynx mildly dry. Neck--supple. No JVD. No bruits. Thyroid normal, trachea midline, no adenopathy. Heart--normal S1 and S2. No murmurs, rubs or gallops. Lungs--clear bilaterally, no respiratory distress, no accessory muscle use. Abdomen--normal bowel sounds and soft. Nontender. Nondistended, no hernias or masses, no organomegaly. Extremities--no cyanosis or clubbing. No edema. Dermatologic--normal skin turgor, normal color, no abnormal lymph nodes, no rash. Neurologic--cranial nerves II through XII grossly intact. Rheumatologic--normal range of motion. Psychiatric--normal affect. Results & Data Results & Data Vital Signs (Past 12 Hours) Vital Signs Temp Pulse Pulse Resp BP BP Pulse Ox 05/07/24 00:06 62 14 174/104 H 98 05/06/24 22:02 36.6 C 78 18 187/114 H 99 O2 Del Method 05/07/24 00:06 Room Air 05/06/24 22:02 Room Air Laboratory Results Laboratory Results WBC 5.06 K/ul (4.8-10.8) 05/06/24: RBC 4.34 M/uL (4.70-6.10) L 05/06/24: Hgb 13.4 g/dl (14.0-18.0) L 05/06/24: POC Hgb 13.6 g/dl (14.0-18.0) L 05/06/24 22:30 Hct 39.9 % (42.0-52.0) L 05/06/24: POC Hct 40 % (42-52) L 05/06/24 22: MCV 91.9 fL (80.0-100.0) 05/06/24: MCH 30.9 pg (25.0-34.0) 05/06/24: MCHC 33.6 g/dL (32.0-36.0) 05/06/24: RDW Std Deviation 45.1 fL (36.4-46.3) 05/06/24: RDW Coeff of Levar 13.3 % (11.5-14.5) 05/06/24: Plt Count 197 K/uL (130-400) 05/06/24: MPV 10.3 fL (9.4-12.4) 05/06/24: Immature Gran % (Auto) 0.2 % 05/06/24: Neut % (Auto) 52.4 % 05/06/24: Lymph % (Auto) 31.4 % 11/20/24 22:25 Shoshone % (Auto) 10.5 % 05/06/24 22:25 Eos % (Auto) 4.5 % 05/06/24 22:25 Baso % (Auto) 1.0 % 05/06/24 22: Neut # (Auto) 2.65 K/uL (1.40-6.50) 05/06/24 22: Lymph # (Auto) 1.59 K/uL (1.20-3.40) 05/06/24 22: Shoshone # (Auto) 0.53 K/uL (0.11-0.59) 05/06/24 22:25 Eos # (Auto) 0.23 K/uL (0.00-0.50) 05/06/24 22: Baso # (Auto) 0.05 K/uL (0.00-0.20) 05/06/24: Immature Gran # (Auto) 0.01 K/uL (0.01-0.20) 05/06/24 22:25 PT 10.5 Seconds (9.0-12.0) 05/06/24 23:09 INR 1.0 (0.9-1.1) 05/06/24 23:09 APTT 24 Seconds (21-31) 05/06/24 23:09 PTT Ratio 0.9 05/06/24 23:09 POC Sodium 142 mmol/L (135-144) 05/06/24 22:30 Sodium 140 mmol/L (136-145) 05/06/24 22:25 POC Potassium 4.2 mmol/L (3.3-5.0) 05/06/24 22:30 Potassium 4.4 mmol/L (3.5-5.1) 05/06/24 22:25 POC Chloride 108 mmol/L (101-112) 05/06/24 22:30 Chloride 108 mmol/L (98-107) H 05/06/24 22:25 Carbon Dioxide 27 mmol/L (21-32) 05/06/24 22:25 POC Total CO2 23 mmol/L (24-31) L 05/06/24 22:30 Anion Gap 5 (3-11) 05/06/24 22:25 POC Anion Gap 16.0 mmol/L (16-25) 05/06/24 22:30 POC BUN 27 mg/dl (7-18) H 05/06/24 22:30 BUN 23 mg/dl (6-23) 05/06/24 22: Creatinine 1.26 mg/dl (0.6-1.4) 05/06/24 22: POC Creatinine 1.3 mg/dl (0.6-1.3) 05/06/24 22:30 Est Cr Clr Drug Dosing 40.5 ml/min 05/06/24 22: eGFR 58.38 05/06/24 22:25 BUN/Creatinine Ratio 18.3 (10-20) 05/06/24 22: Glucose 188 mg/dl (70-99(Fasting)) H 05/06/24 22:25 POC Glucose 116 mg/dl (70-99) H 05/07/24 01:58 POC Glucose (other) 191 mg/dl (70-99) H 05/06/24 22:30 Calcium 9.5 mg/dl (8.6-10.3) 05/06/24 22: POC Ioniz Calcium George 1.15 mmol/l (1.12-1.32) 05/06/24 22:30 Magnesium 2.1 mg/dl (1.7-2.4) 05/06/24 22: Total Bilirubin 0.4 mg/dl (0.2-1.0) 05/06/24 22: AST 24 U/L (13-39) 05/06/24 22:25 ALT 15 U/L (7-52) 05/06/24 22:25 Alkaline Phosphatase 82 U/L (34-104) 05/06/24 22: Troponin I High Sens 14.3 pg/ml (0-20) 05/06/24 22: Total Protein 7.1 gm/dl (6.0-8.3) 05/06/24 22: Albumin 4.1 gm/dl (3.4-5.0) 05/06/24 22: Globulin 3.0 gm/dl (2.5-4.0) 05/06/24 22: Albumin/Globulin Ratio 1.4 (0.9-2) 05/06/24 22:25 Blood Type A Negative 05/06/24:36 Antibody Screen NEGATIVE 05/06/24 22:[address] 05/06/24 22:16 CR Exam(s): CT HEAD Without Contrast EXAM: CT Head Without Intravenous Contrast CLINICAL HISTORY: neuro deficit, acute stroke suspected. TECHNIQUE: Axial computed tomography images of the head/brain without intravenous contrast. CTDI is 29.56 mGy and DLP is 512 mGy-cm. Automated exposure control was utilized for the study. A dose lowering technique was utilized adhering to the principles of ALARA. COMPARISON: CT head without contrast dated 09/20/2020 FINDINGS: Brain: No intracranial hemorrhage. No significant mass effect. Similar subtle encephalomalacia involving the left anterolateral frontal region. There is a new area of encephalomalacia involving the posterior left parietal region; however, this appears late subacute to chronic. Diffuse underlying parenchymal involutional changes, similar to the previous examination. Extensive deep white matter hypodense changes, similar. Ventricles: No midline shift or ventriculomegaly. No effacement of the ventricles. Bones/joints: Unremarkable. No acute fracture. Soft tissues: Unremarkable. Sinuses: Unremarkable as visualized. No acute sinusitis. Mastoid air cells: Unremarkable as visualized. No mastoid effusion. IMPRESSION: 1. No intracranial hemorrhage. No significant mass effect or midline shift. 2. There is a new area of encephalomalacia involving the posterior left parietal region when compared to the previous examination. However, the appearance suggests a late subacute to chronic process. Stable encephalomalacia involving the anterolateral left frontal region. 3. Diffuse underlying parenchymal involutional changes and extensive presumed chronic periventricular microvascular changes noted. Communications: Call Doctor Stroke Electronically signed by: Manny Donato MD 05/06/24 23:52 PM Head CTA 05/06/24 22:16 CR Exam(s): CTA HEAD With Contrast IV Amt: 118 ML OPTIRAY 320 EXAM: CT Angiography Head With Intravenous Contrast CLINICAL HISTORY: neuro deficit, acute stroke suspected. TECHNIQUE: Axial computed tomographic angiography images of the head with intravenous contrast. CTDI is 29.56 mGy and DLP is 512.02 mGy-cm. Automated exposure control was utilized for the study. A dose lowering technique was utilized adhering to the principles of ALARA. MIP reconstructed images were created and reviewed. CONTRAST: Patient received 118 ML OPTIRAY 320 of IV contrast COMPARISON: CTA head dated 09/20/2020 FINDINGS: Right internal carotid artery: Minimally progressive atherosclerotic calcification of the right cavernous and supraclinoid internal carotid artery without significant stenosis. The petrous segment is patent. No aneurysm. Right anterior cerebral artery: Unremarkable. No occlusion or significant stenosis. No aneurysm. Right middle cerebral artery: Unremarkable. No occlusion or significant stenosis. No aneurysm. Right posterior cerebral artery: The proximal right posterior cerebral artery narrowing noted on the previous examination is stable and is considered mild to moderate on this examination. The distal posterior cerebral artery is patent. No aneurysm. Right vertebral artery: The right vertebral artery is small in caliber, measuring only 1-2 mm, but is stable from the previous examination. Left internal carotid artery: Similar mild atherosclerotic calcification of the left cavernous and supraclinoid internal carotid artery without significant stenosis. The petrous segment is patent. No aneurysm. Left anterior cerebral artery: Unremarkable. No occlusion or significant stenosis. No aneurysm. Left middle cerebral artery: Unremarkable. No occlusion or significant stenosis. No aneurysm. Left posterior cerebral artery: Unremarkable. No occlusion or significant stenosis. No aneurysm. Left vertebral artery: The left vertebral artery is dominant, stable in appearance. Basilar artery: Unremarkable. No occlusion or significant stenosis. No aneurysm. Brain: No abnormal parenchymal enhancement. IMPRESSION: Negative intracranial CTA examination. No significant alteration from the prior examination. Communications: Call Doctor Stroke Electronically signed by: Manny Donato MD 05/06/24 23:56 PM Neck CTA 05/06/24 22:16 CR Exam(s): CTA NECK With Contrast IV Amt: 118 ML OPTIRAY 320 EXAM: CT Angiography Neck With Intravenous Contrast CLINICAL HISTORY: neuro deficit, acute stroke suspected. TECHNIQUE: Routine carotid CT angiography protocol was performed with intravenous contrast. NASCET criteria using the distal ICAs for comparison were used for evaluation of stenoses. CTDI is 11.81 mGy and DLP is 428.6 mGy-cm. Automated exposure control was utilized for the study. A dose lowering technique was utilized adhering to the principles of ALARA. MIP reconstructed images were created and reviewed. CONTRAST: Patient received 118 ML OPTIRAY 320 of IV contrast COMPARISON: CTA neck dated 09/20/2020 FINDINGS: VASCULATURE: Right common carotid artery: Unremarkable. No occlusion or significant stenosis. No dissection. Right internal carotid artery: Atherosclerotic calcification involving the proximal right internal carotid artery at the carotid bifurcation. No significant narrowing by NASCET criteria. The mid to distal internal carotid artery is patent. No dissection. Right external carotid artery: Unremarkable. No occlusion. Right vertebral artery: The right vertebral artery is no longer identified proximally. There is reconstitution of the mid cervical segment with the distal small bowel caliber right vertebral artery remaining patent and stable in appearance. No occlusion or significant stenosis. No dissection. Left common carotid artery: Unremarkable. No occlusion or significant stenosis. No dissection. Left internal carotid artery: Partially calcified prominent atheromatous changes involving the proximal left internal carotid artery, extending to the carotid bifurcation. There is mild to moderate, proximally 45% luminal stenosis using NASCET criteria the mid to distal left internal carotid artery is patent. No dissection. Left external carotid artery: Unremarkable. No occlusion. Left vertebral artery: The left vertebral artery is widely patent and is dominant in appearance. The previously noted moderate proximal narrowing appears mild in degree of stenosis on this examination. No dissection. Brachiocephalic and subclavian arteries: There is a normal branching pattern of the proximal great vessels without ostial stenosis. Aorta: The aortic arch is patent without dissection or aneurysm. NECK: Bones/joints: Unremarkable. No acute fracture. Soft tissues: Unremarkable. Lung apices: Clear. CAROTID STENOSIS REFERENCE USING NASCET CRITERIA: % ICA stenosis = (1 - narrowest ICA diameter/diameter of distal cervical ICA) x 100. Mild - <50% stenosis. Moderate - 50-69% stenosis. Severe - 70-94% stenosis. Near occlusion - 95-99% stenosis. Occluded - 100% stenosis. IMPRESSION: 1. The right vertebral artery is no longer identified proximally. There is reconstitution of the mid cervical segment with the distal small bowel caliber right vertebral artery remaining patent and stable in appearance. This is presumed related to retrograde filling from the contralateral dominant vertebral artery. The left vertebral artery is widely patent and stable in appearance. 2. Partially calcified prominent atheromatous changes involving the proximal left internal carotid artery, extending to the carotid bifurcation. There is mild to moderate, proximally 45% luminal stenosis using NASCET criteria the mid to distal left internal carotid artery is patent. The left common carotid artery is patent. 3. The common carotid and internal carotid arteries are patent without significant stenosis or occlusion. Communications: Call Doctor Stroke Electronically signed by: Manny Donato MD 05/07/24 00:04 AM MR brain wo con CLINICAL HISTORY: on 05/06 patient was unable to find his words. unable to hold a pen to write. ? cva. CT head 05/06/24. MRI brain 09/20/20. room 219. inpatient. 206 images TECHNIQUE: Multisequential and multiplanar images of the brain were submitted for review without contrast. COMPARISON: 20 SEPTEMBER 2020. FINDINGS: Generalized parenchymal atrophy is appreciated. Scattered foci of increased T2/FLAIR signal abnormality are identified within the bilateral periventricular and subcortical white matter, and are most commonly associated with chronic small vessel ischemic disease. Gliotic changes in left fronto-parietal lobes. No intracranial hemorrhage, mass effect, midline shift, extra-axial collection, or hydrocephalus is identified. Ventricles, sulci, and basal cisterns are symmetric and normal in size and configuration. Diffusion-weighted sequences show no evidence of acute ischemic infarction. Midline structures including the pituitary gland, corpus callosum, pineal region, and brainstem are unremarkable. The craniovertebral junction is within normal limits. No calvarial abnormalities are identified. The paranasal sinuses and mastoid air cells are clear. Orbital structures are unremarkable. Appropriate flow voids are present in the visualized intracranial vessels. IMPRESSION: 1. No acute ischemia, space occupying mass, or other acute intracranial pathology is demonstrated. 2. Chronic small vessel ischemic disease.-static. 3. Diffuse cerebral atrophy. 4. Gliotic changes in left fronto-parietal lobes. No other new interval changes since prior study. Electronically signed by Bryan Vail 05-07-2024 03:43 AM Dictated: 05/07/24 0220 Transcribed: Code Status & VTE Plan Code Status Full code VTE Prophylaxis Plan VTE Prophylaxis will be ordered: Yes PG Care Time/CCT Total # of Minutes Spent Total Time Spent with Patient: Total time spent is greater than 50% in coordination of care (as documented) at patient's floor/unit and/or counseling patient: Coding Level of Care Code 92285 INT INP/OBS CARE 3/75MIN Diagnoses Stroke-like symptoms R29.90 Slurred speech R47.81 Difficulty writing R68.89 Cerebrovascular disease I67.9 Hypoglycemia due to type 2 diabetes mellitus E11.649 Tobacco abuse Z72.0
[2024-05-07] MEDS: DEXTROSE 50% 50 ML SYRINGE IV ONE (01:02)
[2024-05-07] MEDS: DEXTROSE 50% 50 ML SYRINGE IV STA (01:18)
[2024-05-07] MEDS ORDERED: GLUCOSE 10 TAB/TUBE PO PRN (01:19)
[2024-05-07] MEDS ORDERED: GLUCOSE 40% GEL 15 GM TUBE PO PRN (01:19)
[2024-05-07] MEDS ORDERED: DEXTROSE 50% 50 ML SYRINGE IV PRN (01:19)
[2024-05-07] MEDS ORDERED: GLUCAGON FOR INJ 1 MG VIAL SQ PRN (01:19)
[2024-05-07] MEDS ORDERED: CARBOHYDRATES FOR HYPOGLYCEMIA PO PRN (01:19)
[2024-05-07] MEDS: ASPIRIN 81 MG CHEW PO STA (01:22)
[2024-05-07] MEDS ORDERED: PHARMACIST DISCHARGE MED REC CONSULT PRN (02:53)
[2024-05-07] MEDS ORDERED: ONDANSETRON INJ 2 MG/ML 2 ML VIAL IV PRN (02:53)
[2024-05-07] MEDS ORDERED: FLUTICASONE PROPIONATE NA SPR 16 GM BTL NAE PRN (02:53)
[2024-05-07] MEDS: D5W AND 1/2NSS 1,000 ML IV SCH (02:55)
--- NOTE | 2024-05-07 03:43 | Magnetic Resonance Report ---
EXAM: MR brain wo con CLINICAL HISTORY: on 05/06 patient was unable to find his words. unable to hold a pen to write. ? cva. CT head 05/06/24. MRI brain 09/20/20. room 219. inpatient. 206 images TECHNIQUE: Multisequential and multiplanar images of the brain were submitted for review without contrast. COMPARISON: 20 SEPTEMBER 2020. FINDINGS: Generalized parenchymal atrophy is appreciated. Scattered foci of increased T2/FLAIR signal abnormality are identified within the bilateral periventricular and subcortical white matter, and are most commonly associated with chronic small vessel ischemic disease. Gliotic changes in left fronto-parietal lobes. No intracranial hemorrhage, mass effect, midline shift, extra-axial collection, or hydrocephalus is identified. Ventricles, sulci, and basal cisterns are symmetric and normal in size and configuration. Diffusion-weighted sequences show no evidence of acute ischemic infarction. Midline structures including the pituitary gland, corpus callosum, pineal region, and brainstem are unremarkable. The craniovertebral junction is within normal limits. No calvarial abnormalities are identified. The paranasal sinuses and mastoid air cells are clear. Orbital structures are unremarkable. Appropriate flow voids are present in the visualized intracranial vessels. IMPRESSION: 1. No acute ischemia, space occupying mass, or other acute intracranial pathology is demonstrated. 2. Chronic small vessel ischemic disease.-static. 3. Diffuse cerebral atrophy. 4. Gliotic changes in left fronto-parietal lobes. No other new interval changes since prior study. Electronically signed by Bryan Vail 05-07-2024 03:43 AM
[2024-05-07] MEDS: ROSUVASTATIN CALCIUM 10 MG TAB PO STA (04:01)
[2024-05-07] MEDS: INSULIN ASPART PER UNIT CHARGE SC SCH ×2 (06:09→07:44)
[2024-05-07] MEDS: CEROVITE ADV FORMULA TAB PO SCH (07:45)
[2024-05-07 08:02] LABS: Basophils # (auto) 0.05 K/uL (0.00-0.20); Basophils % (auto) 0.9 %; Eosinophils # (auto) 0.24 K/uL (0.00-0.50); Eosinophils % (auto) 4.2 %; Hematocrit (blood only) 37.1 % (42.0-52.0); Hemoglobin 12.6 g/dl (14.0-18.0); Immature Granulocytes # (auto) 0.02 K/uL (0.01-0.20); Immature Granulocytes % (auto) 0.3 %; Lymphocytes # (auto) 1.44 K/uL (1.20-3.40); Mean Corpuscular Hemoglobin 31.3 pg (25.0-34.0); Mean Corpuscular Volume 92.1 fL (80.0-100.0); Mean Platelet Volume 10.4 fL (9.4-12.4); Monocytes # (auto) 0.54 K/uL (0.11-0.59); Monocytes % (auto) 9.4 %; Neutrophils # (auto) 3.46 K/uL (1.40-6.50); Neutrophils % (auto) 60.2 %; Platelet Count 181 K/uL (130-400); RDW Coefficient of Variation 13.2 % (11.5-14.5); RDW Standard Deviation 45.3 fL (36.4-46.3); Red Blood Count 4.03 M/uL (4.70-6.10); White Blood Count 5.75 K/ul (4.8-10.8)
[2024-05-07 08:10] LABS: Albumin Level 3.5 gm/dl (3.4-5.0); BUN Creatinine Ratio 20.2 (10-20); Calcium 8.8 mg/dl (8.6-10.3); Chol HDL Ratio 3.6 (0-5); Phosphorus 3.6 mg/dl (2.5-4.9); Potassium 3.8 mmol/L (3.5-5.1)
[2024-05-07 08:15] LABS: Troponin I High Sensitivity 14.1 pg/ml (0-20)
[2024-05-07 08:56] LABS: Estimated Average Glucose 163 mg/dl; Hemoglobin A1C 7.3 % (4.5-5.6)
--- NOTE | 2024-05-07 09:45 | Neurology Consultation ---
Date of Consultation May 07, 2024 Assessment & Plan (1) Ischemic stroke: History of Present Illness Attending Physician: Crystal Stack MD History of Present Illness S: pt this morning feeling well. resolved speech problem. mri brain initial report states it was negative but on further review by me, he does have acute left frontal ischemic stroke, addendum to the report will be made. pt states he stop taking ASA about a month ago and he states he never took plavix. pt did also have hypoglyemic event. Admission HPI: Patient's glucose on laboratory was 188, however, he had an episode of slurring of speech and confusion with sweats, repeat blood sugar by fingerstick at that time was 56 Patient was given 50 mL of D50, glucose went up to 216, and by reassessment after that the patient was significantly improved compared to the first time I saw him earlier this evening. Suggesting that at least part of his symptoms in the morning may have been related to hypoglycemia, and he may need to have his glargine 20 units at bedtime reduced. His glucose had decreased to 116 by the time he was to get his MRI, therefore is placed on D5 half-normal saline at 80 mL/h x 1 L Placed on Accu-Cheks before meals and at bedtime with NovoLog coverage per scale, with checks every hour as needed to monitor for hypoglycemia. His insulin was resumed at 10 units at bedtime starting 05/07 Check hemoglobin A1c The patient is brought to the emergency department due to his 's concerns regarding patient having difficulty with word finding, inability to write due to confusion, and concerns regarding a possible stroke, that began upon waking up in the morning Allergies Allergy/AdvReac Type Severity Reaction Status Date / Time atorvastatin AdvReac Severe Headache,weakness,back Verified 05/07/24 00:28 pain. lisinopril AdvReac Intermediate Cough Verified 05/07/24 00:28 Home Medications Medication Instructions Recorded Confirmed Type cholecalciferol (vitamin D3) 25 25 mcg PO BID 09/20/20 05/07/24 History mcg (1,000 unit) capsule (Vitamin D3) fluticasone propionate 50 2 spray intranasal DAILY PRN Nasal 09/20/20 05/07/24 History mcg/actuation nasal Congestion spray,suspension insulin glargine 100 unit/mL 20 unit subcut HS 09/20/20 05/07/24 History subcutaneous solution (Lantus U-100 Insulin) multivitamin 1 tab PO QAM 09/20/20 05/07/24 History vit C 50 mg-E 15 unit-zinc cit 4.5 1 tab PO QAM 09/20/20 05/07/24 History mg-lutein 2.5 mg-zeaxan chew tablet (FlixChip) zinc sulfate 50 mg zinc (220 mg) 50 mg PO QAM 09/20/20 05/07/24 History capsule ibuprofen 800 mg tablet 800 mg PO TID PRN Pain 10/26/20 05/07/24 History ketoconazole 2 % shampoo 1 applic topical UD 05/07/24 05/07/24 History losartan 100 mg tablet 100 mg PO QAM 05/07/24 05/07/24 History triamcinolone acetonide 0.1 % 1 applic topical UD 05/07/24 05/07/24 History topical cream Patient History Family History Mother Myocardial infarction Stroke Parkinson disease Social History Smoking Status: Never smoker Tobacco Type: Smokeless Tobacco (Dip or Chew) Second Hand Exposure: No; Do You Dip or Chew Tobacco: Yes; Hx Alcohol Use: Yes Alcohol type: beer Alcohol Intake Frequency: 2-4 x/Month Hx Substance Use: No Preferred Language: Austrian Communication Ability: Effective Insole Buffer Required: No Beliefs That Will Affect Care: None marital status: Current Living Situation: Spouse Current Living Situation Comment: with spouse ROSALBA current occupational status: retired current occupation: [employer] How many Children do You have: 3 Other Information That Helps Us Care for You: No Feels Safe at Home: Yes Safety Concerns: Feels Safe At This Time Assistive Devices: None Review of Systems Review of Systems: All systems reviewed & are unremarkable except as noted in Subjective Constitutional: as per Subjective / HPI Eyes: as per Subjective / HPI Ear, Nose, Mouth, Throat: as per Subjective / HPI Respiratory: as per Subjective / HPI Cardiovascular: as per Subjective / HPI Gastrointestinal: as per Subjective / HPI Musculoskeletal: as per Subjective / HPI Integumentary: as per Subjective / HPI Neurologic: as per Subjective / HPI Psychiatric: as per Subjective / HPI Endocrine: as per Subjective / HPI Hematologic / Lymphatic: as per Subjective / HPI Allergy / Immunological: as per Subjective / HPI Exam (Neuro) Physical Exam: HEENT: normocephalic Neuro: Mental: AOx4, fluent speech, normal comprehension, no apraxia, no L/R confusion, no neglect, normal calculation and normal naming and repetition. CN: PERRL, Full EOM, symmetric face, midline T/U/P, 5/5 SCM/traps. Motor: No abnormal movements, normal tone and bulk, 5/5 t/o bilaterally Sens: intact to touch b/l grossly Coord: intact FNT b/l DTR: 1+ sym b/l Gait: deferred. Impression: 78 yo male with acute ischemic left frontal/parietal areas in setting of DM and hypoglycemic event and now resolved aphasia and confusion. Recommendations: 1. Standard stroke work up as planned 2. antiplatelet therapy: * DAPT (dual antiplatelet therapy): start for pts with ABCD2 score 4 or higher. Initial loading dose with ASA 325mg and Plavix 300mg (if pt has not been started), then ASA 81mg daily and Plavix 75mg daily. Continue DAPT for 21. After that, can continue single antiplatelet therapy (either ASA or Plavix). 3. Images:TTE with bubble 4. Permissive Hypertension for next 24 h rs. Keep SBP goal range less than 220. Avoid hypotension. Do not stop beta-west if on it. 6. Long-term SBP goal less than 130. 7. Plenty of hydration including IV flui d if possible (use isotonic solution) next 1-2 days. Avoid hypovolemia and hypotension. 8. Initiate DVT prevention therapy. 9. Avoid hypoglycemia, serum glucose goa l during hospitalization: 140-180. 10. Long-term HgA1c goal less than 7. 11. Start statin if not on it and no abs olute contraindication, long-term LDL goal less than 70. 12. Head of bed up 30 degrees if possibl e. 13. Stroke education by nursing and appr opriate staff. 14. Telemetry monitoring. Consider middle or intermediate school principal cardiac monitoring, i.e. MCOT (mobile cardiac outpatient telemetry) or ICM (insertable awake overnight monitor, e.g. LINQ), if never had middle or intermediate school principal cardiac monitoring done previously. And if found to have atrial flutter or fibrillation, should consider anticoagulation therapy if no contraindication. 15. Fall precaution discussed with attending provider. Chart reviewed I have spent more than 50% educating patient about potential diagnosis and neurological evaluation and coordinating care with patient's treatment team. Total time spent (including chart review and coordination of care): 60 min (this includes chart review). Results & Data Vital Signs (Past 12 Hours) Vital Signs Temp Pulse Pulse Resp BP BP Pulse Ox 05/07/24 07:38 36.4 C L 79 18 167/89 H 97 05/07/24 03:44 58 L 05/07/24 03:02 36.4 C L 61 16 177/94 H 96 05/07/24 02:53 05/07/24 02:01 59 L 16 167/100 H 98 05/07/24 00:06 62 14 174/104 H 98 05/06/24 22:02 36.6 C 78 18 187/114 H 99 Pulse Ox O2 Del Method O2 Del Method 05/07/24 07:38 Room Air 05/07/24 03:44 05/07/24 03:02 Room Air 05/07/24 02:53 96 Room Air 05/07/24 02:01 Room Air 05/07/24 00:06 Room Air 05/06/24 22:02 Room Air PG Care Time/CCT Total # of Minutes Spent Total Time Spent with Patient: Total time spent is greater than 50% in coordination of care (as documented) at patient's floor/unit and/or counseling patient: Coding Level of Care Code 06587 IN/OBS CONSULT LVL 4,60M Diagnoses Ischemic stroke I63.9
--- NOTE | 2024-05-07 11:42 | History & Physical Bridge Note ---
Date of Service May 07, 2024 History & Physical Bridge Note I have examined the patient, reviewed the History & Physical and in the interval since the performance of the History & Physical I have noted the following changes of clinical significance: Pt still having word finding difficulties and reports not feeling back to himself. No weakness, no CP or SOB, no other concerns. Awaiting PT/OT/Speech evals I discussed his care with Neuro who did review brain MRI and saw acute CVA left frontoparietal region and confirmed with Radiology Vitals reviewed, tele with NSR, SB 50-70s NAD, AAOx3 RRR no mgr CTAB no wcr Neuro-CN 2-12 intact, 5/5 strength throughout, speech with some mild dysarthria and trouble with expressive aphasia Ext no edema CBC, BMP, HgbA1C, Lipids reviewed MRI brain reviewed 78 yo male here with acute ischemic left frontoparietal CVA, CTA H/N with 45% LICA stenosis-could be culprit-DAPT x 3 weeks and then Plavix alone and adding statin but small chance could be cardioembolic Start Plavix 300mg po x 1 now then 75mg daily, resume 81mg ASA daily (received dose early AM) Started Crestor 10mg daily given moderate dose given h/o significant reactions to atorvastatin permissive HTN Awaiting PT/OT/ST evals ECHO pending monitor on tele for Afib and needs custodial event monitoring Appreciate Neuro consult dc IVFs
[2024-05-07] MEDS: ENOXAPARIN INJ 40 MG/0.4 ML SYR SQ SCH (11:43)
[2024-05-07] MEDS: CLOPIDOGREL BISULFATE 300 MG TAB PO STA (11:43)
--- NOTE | 2024-05-07 17:16 | XCELERA ---
[id number]
[2024-05-07] MEDS: LANTUS PER UNIT CHARGE SQ SCH (21:00)
--- OUTSIDE RECORDS SUMMARY | 2024-05-07 23:41 | External Medical Summary | Continuity of Care Document ---
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) - Essential (primary) hypertension(Final) - Hyperlipidemia, unspecified(Final) - Discharge Disposition: Home or Self Care Attending Physician: MD Maza Ravishankar E Allergies, Adverse Reactions, Alerts Substance Criticality Severity Reaction Reaction Severity Status Allergy Not found in Search seasonal Active Immunizations Given and Recorded Vaccine Date Status Refusal Reason zoster vaccine, inactivated 01/04/19 Recorded zoster vaccine, inactivated 07/24/18 Recorded pneumococcal 13-valent vaccine 05/04/14 Given pneumococcal 23-valent vaccine 07/25/11 Given tetanus/diphtheria/pertuss, acel (Tdap) 07/25/11 G iven tetanus/diphtheria/pertuss, acel (Tdap) 06/17/03 R ecorded tetanus/diphtheria/pertuss, acel (Tdap) 1 06/17/03 Recorded zoster vaccine live 09/22/09 Recorded tetanus toxoids-diphtheria, Td (Adult) 2 08/31/92 Recorded 1Result Comment: 2021-03-07: Historical information-source unspecified 2Result Comment: 2021-03-07: Historical information-source unspecified Medications BD 0.5 mL Ultra-Fine II Short Insulin Syringe 31G x /16" Start: 11/23/17 2:59:55 PM EDT, See Instructions, Disp# 100 each, Refills: 9, as directed DX: E11.9, Pharmacy: [id number] Start Date: 11/23/17 Status: Ordered BD 0.5 mL Ultra-Fine II Short Insulin Syringe 31G x 5/16" Start: 02/04/23 11:14:00 AM EDT, See Instructions, Disp# 100 each, Refills: 8, Use as directed, Pharmacy: [facility] Start Date: 02/04/23 Status: Ordered BD Insulin Syringe U/F Miscellaneous 31G X 5/16" 0.5 ML Start: 02/25/24 10:21:00 AM EDT, BD Insulin Syringe U/F Miscellaneous 31G X 5/16" 0.5 ML, See Instructions, Disp# 100 unknown unit, Refills: 3, Use as directed, Pharmacy [facility] Start Date: 02/25/24 Status: Ordered Eye Health Formula oral capsule Start: 11/04/23 1:32:00 PM EDT, 1 cap, PO, Daily Start Date: 11/04/23 Status: Ordered fluticasone 50 mcg/inh nasal spray Start: 12/30/23 2:11:00 PM EDT, See Instructions, Disp# 16 g, Refills: 5, USE 2 SPRAYS EACH NOSTRIL DAILY, Pharmacy: [facility] Start Date: 12/30/23 Status: Ordered ibuprofen 800 mg oral tablet Start: 02/13/22 1:26:00 PM EDT, 1 tab, PO, tid, Disp# 270 tab, Refills: 3, PRN: as needed for arthritis, Pharmacy: [facility] Start Date: 02/13/22 Status: Ordered Lantus Vial 100 units/mL subcutaneous solution Start: 12/30/23 2:11:00 PM EDT, See Instructions, Disp# 3 each, Refills: 1, 18 unit subq at bedtime,Note to Pharmacy: pt requesting 3 vials for 3 month supply, Pharmacy: [facility] Start Date: 12/30/23 Status: Ordered losartan 100 mg oral tablet Start: 03/22/23 1:40:00 PM EDT, 1 tab, PO, Daily, Disp# 90 tab, Refills: 3, Pharmacy: [facility] Start Date: 03/22/23 Status: Ordered lutein 20 mg oral capsule Start: 11/16/22 1:50:00 PM EDT, 1 cap, PO, Daily Start Date: 11/16/22 Status: Ordered [place]-3 Fish Oil Start: 11/04/23 1:31:00 PM EDT, 1 tab, PO, Daily Start Date: 11/04/23 Status: Ordered True Metrix Test Strips Start: 08/07/18 12:07:00 PM EST, See Instructions, Disp# 300 each, Refills: 1, Pt to test blood sugars 3x daily. E11.9, Note to Pharmacy: Call to [facility] [phone], other Start Date: 08/07/18 Status: Ordered unknown medication Start: 12/30/23 1:58:00 PM EDT, beet vitamin Start Date: 12/30/23 Status: Ordered Vitamin B Complex oral capsule Start: 11/16/22 1:54:00 PM EDT, 1 cap, PO, Daily Start Date: 11/16/22 Status: Ordered Vitamin D3 Start: 06/30/20 1:00:00 PM EST Start Date: 06/30/20 Status: Ordered zinc (as acetate) 50 mg oral capsule Start: 10/22/19 4:01:00 PM EDT Start Date: 10/22/19 Status: Ordered Problem List Condition Confirmation Course Effective Dates Status H ealth Status Informant Arthritis 1 Confirmed Active Benign hypertension Confirmed Active Bilateral carotid artery stenosis Confirmed Active Carpal tunnel syndrome, bilateral Confirmed Active Chews loose leaf tobacco Confirmed Active Decreased libido Confirmed Active Dyslipidemia 2 Confirmed Active Fibromyalgia Confirmed Active Hearing loss Confirmed Active Left hip pain Confirmed Active Left lumbar radiculopathy Confirmed Active Protrusion of lumbar intervertebral disc Confirmed Active Seasonal allergies Confirmed Active Statin declined Confirmed Active TIA (transient ischemic attack) Confirmed Active Type 2 diabetes mellitus with cataract Confirmed Active Vasomotor rhinitis Confirmed Active Vertebral artery stenosis Confirmed Active 1R shoulder S/P rotator cuff repair 2increased LDL Procedures Procedure Date Related Diagnosis Body Site Status rotator cuff repairs, bilateral 1 Completed 1twice on right, once on left Results Laboratory List Name Date Basic Metabolic Panel (BASIC METAB PANEL ) 04/21/24 Hemoglobin A1C (HEMOGLOBIN, A1C) 04/21/24 Lipid Profile (LIPOPROTEINS) 04/21/24 Most recent to oldest [Reference Range]: 1 eGFR CKD-EPI [>60 mL/min/1.73 m2] 64 mL/ min/1.73 m2 1 (04/21/24 10:51 AM) Estimated Average Glucose 160 mg/dL 2 (04/21/24 10: AM) Non-HDL 135 mg/dL 3 (04/21/24 10: AM) Estimated CrCl 44.91 mL/min (04/21/24 12:09 PM) Anion Gap [5-14 mmol/L] 8 mmol/L (04/21/24 10:51 AM) BUN [7-20 mg/dL] 29 mg/dL *HI* (04/21/24 10:51 AM) Ca [8.4-10.2 mg/dL] 9.2 mg/dL (04/21/24 10:51 AM) Chol/HDL 4 (04/21/24: AM) Chol [125-200 mg/dL] 177 mg/dL (04/21/24 10:51 AM) Cl- [96-107 mmol/L] 105 mmol/L (04/21/24: AM) HCO3 [22-30 mmol/L] 25 mmol/L (04/21/24 10:51 AM) Cret [0.70-1.30 mg/dL] 1.16 mg/dL (04/21/24 10:51 AM) HbA1c [4.0-6.0 %] 7.2 % *HI* (04/21/24 10:51 AM) Glu [74-106 mg/dL] 128 mg/dL *HI* (04/21/24 10:51 AM) HDL [>35 mg/dL] 42 mg/dL (04/21/24 10:51 AM) K [3.5-5.1 mmol/L] 4.5 mmol/L (04/21/24 10:51 AM) LDL Chol, Calculated [50-130 mg/dL] 112 mg/dL (04/21/24 10:51 AM) Na [137-145 mmol/L] 138 mmol/L (04/21/24 10:51 AM) TG [<200 mg/dL] 115 mg/dL (04/21/24 10:51 AM) 1Result Comment: Testing Performed By: Dept [facility]ology [facility] [address], [address], [place] [address] 2Result Comment: Testing Performed By: Dept of Pathology [facility] [address], [address] [facility] [place] [address] 3Result Comment: Testing Performed By: Dept of Pathology [facility] [address], [address] [place] [address] Social History Social History Type Response Smoking Status Never smoked cigaret terry Sex Male Sex Representation Male (finding) Patient Care team information Care Team Personnel Name: MD Hdez Juan Position: Physician - Family Med Member Role: Lifetime Relationship [address]: [address] [place] [address], [place] [address] [place] Name: MD Link, Gaby Hernandez Position: Physician Member Role: Primary Care Provider [address]: [address] [place] [address], [place] [address] [place] Care Team Related Persons Name: ROSALBA BLACKMON
--- OUTSIDE RECORDS SUMMARY | 2024-05-07 23:41 | External Medical Summary | Continuity of Care Document ---
Author Name Unknown Organization [address] Address [address] [facility] [place], [place] [id number] Care Team Providers Care Auto Service Instructor Name Role Phone Gaby Maza Primary Care Physician [phone] Encounter [facility] [id number] Date(s): 05/01/24 - 05/01/[address] [facility] [address] [facility], [address] [place] [address] [phone] Encounter Diagnosis Type 2 diabetes mellitus with cataract(Discharge Diagnosis) - 05/01/24 Dyslipidemia(Discharge Diagnosis) - 05/01/24 Benign hypertension(Discharge Diagnosis) - 05/01/24 Discharge Disposition: Home or Self Care Attending Physician: MD Maza Ravishankar E Referring Physician: MD Maza Ravishankar E Allergies, Adverse Reactions, Alerts Substance Criticality Severity Reaction Reaction Severity Status Allergy Not found in Search seasonal Active Assessment and Plan Extracted from: Title:Office Visit Note Author:MD Maza Ravishan kar E Date:05/01/24 1.Type 2 diabetes mellitus with cataract - Sugars remain within goal of <7.5%, no change to DM regimen at this time; continue to work on lifestyle measures - A1C and urine micro in 4 months - DM foot due in 8 months 2.Dyslipidemia - Statin recommended/declined 3.Benign hypertension - Stable on current regimen - BMP annually, reviewed and wnl f/u 4 months for re-check. Time: 40mins 5 - pre-visit chart review 30 - visit, inclusive of history, exam, and discussion of assessment/plan 5 - post-visit documentation/orders/coordination of care Immunizations Given and Recorded Vaccine Date Status [...] Short Insulin Syringe 31G x 5/16" Start: 11/23/17 2:59:55 PM EDT, See Instructions, Disp# 100 each, Refills: 9, as directed DX: E11.9, Pharmacy: [id number] Start Date: 11/23/17 Status: Ordered BD 0.5 mL Ultra-Fine II Short Insulin Syringe 31G x 5/16" Start: 02/04/23 11:14:00 AM EDT, See Instructions, Disp# 100 each, Refills: 8, Use as directed, Pharmacy: [id number] Start Date: 02/04/23 Status: Ordered BD Insulin Syringe U/F Miscellaneous 31G X 5/16" 0.5 ML Start: 02/25/24 10:21:00 AM EDT, BD Insulin Syringe U/F Miscellaneous 31G X 5/16" 0.5 ML, See Instructions, Disp# 100 unknown unit, Refills: 3, Use as directed, Pharmacy [id number] Start Date: 02/25/24 Status: Ordered Eye Health Formula oral capsule Start: 11/04/23 1:32:00 PM EDT, 1 cap, PO, Daily Start Date: 11/04/23 Status: Ordered fluticasone 50 mcg/inh nasal spray Start: 12/30/23 2:11:00 PM EDT, See Instructions, Disp# 16 g, Refills: 5, USE 2 SPRAYS EACH NOSTRIL DAILY, Pharmacy: [id number] Start Date: 12/30/23 Status: Ordered ibuprofen 800 mg oral tablet Start: 02/13/22 1:26:00 PM EDT, 1 tab, PO, tid, Disp# 270 tab, Refills: 3, PRN: as needed for arthritis, Pharmacy: [id number] Start Date: 02/13/22 Status: Ordered Lantus Vial 100 units/mL subcutaneous solution Start: 05/01/24 1:28:00 PM EST, See Instructions, Disp# 3 each, Refills: 1, 18 unit subq at bedtime, Note to Pharmacy: pt requesting 3 vials for 3 month supply, Pharmacy: [id number] Start Date: 05/01/24 Status: Ordered losartan 100 mg oral tablet Start: 05/01/24 1:28:00 PM EST, 1 tab, PO, Daily, Disp# 90 tab, Refills: 3, Pharmacy: [id number] Start Date: 05/01/24 Status: Ordered lutein 20 mg oral capsule Start: 11/16/22 1:50:00 PM EDT, 1 cap, PO, Daily Start Date: 11/16/22 Status: Ordered [place]-3 Fish Oil Start: 11/04/23 1:31:00 PM EDT, 1 tab, PO, Daily Start Date: 11/04/23 Status: Ordered True Metrix Test Strips Start: 08/07/18 12:07:00 PM EST, See Instructions, Disp# 300 each, Refills: 1, Pt to test blood sugars 3x daily. E11.9, Note to Pharmacy: Call to [facility] [phone], other Start Date: 08/07/18 Status: Ordered unknown [...] PM EDT Start Date: 10/22/19 Status: Ordered Mental Status 05/01/24 Barriers to Learning one year None evide nt Mandatory Health Literacy Documentation Yes Health Literacy Communication Barriers N ever Primary Language Nigerien Problem List Condition Confirmation Course Effective Dates [...] shoulder S/P rotator cuff repair 2increased LDL Diagnosis Diagnosis Type Effective Dates Health Status Clinical Service Informant Type 2 diabetes mellitus with cataract Discharge Diagnosis 05/01/24 Non-Specified Dyslipidemia Discharge Diagnosis 05/01/24 Non-Specified Benign hypertension Discharge Diagnosis 05/01/24 Non-Specified Procedures Procedure Date Related Diagnosis Body Site Status rotator cuff repairs, bilateral 1 Completed 1twice on right, once on left Vital Signs Most recent to oldest [Reference Range]: 1 Patient Weight 65.8 kg (05/01/24 1:06 PM) Temperature [36.5-37.9 DegC] 36.4 DegC *LOW* (05/01/24 1:06 PM) Heart Rate 83 bpm (05/01/24 1:06 PM) Blood Pressure 140/80mmHg (05/01/24 1:06 PM) Cuff Pulse Pressure 60 mmHg (05/01/24 1:06 PM) Social History Social History Type Response Smoking Status Never smoked cigaret terry Sex Male Sex Representation Male (finding) FCM Outpt Note * MD Link, Gaby E: PERFORM Event Display: FCM Outpt Note Authored Date: Chief Complaint 4 month f/u. History of Present Illness Hermilo is a 78yoM here today for 4m f/u from 12/2023 visit for DM check. He has T2DM with last A1C 7.2% last week. His BMP and lipids were also checked and unremarkable. He had foot exam at last visit and is due for urine micro at next visit along with next A1C. He recently underwent CTS in his wrists which has messed up his insulin regimen as someone has to help him do it so now is doing midday instead of at night. Taking between 18 and 20 units (less on low sugar days - AMs in 80s). Average is 110s. Statin has been recommended but he continues to decline this therapy despite discussion of risks/benefits. Tobacco cessation was also encouraged/declined. Precontemplative. BP has been stable/well controlled without reports of high/low BP symptoms. Slightly elevated todayas he was stressed about running latebut in normal baseline so will defer modifications to regimen. Imms reviewed, Td and covid/flu encouraged. Review of Systems 03/30pt ROS reviewed/negative except as noted in HPI. Physical Exam Vitals & Measurements T:36.4C HR:83(Monitored) BP:140/80 SpO2:96% WT:65.800kg(Dosing) WT:65.8kg PHQ2 Data(Data Documented on:05/01/2024 13:03) Emotional health assessment NEGATIVE GENERAL APPEARANCE: The patient is alert, oriented and in no acute distress. VITALS: As above. HEENT: Head is normocephalic/atraumatic. CARDIOVASCULAR: +2 radial pulses. LUNGS: Respirations even and unlabored. EXTREMITIES: No cyanosis, clubbing or edema. NEUROLOGICAL: Grossly non-focal exam. SKIN: Warm and dry without any rash. Assessment/Plan 1.Type 2 diabetes mellitus with cataract - Sugars remain within goal of <7.5%, no change to DM regimen at this time; continue to work on lifestyle measures - A1C and urine micro in 4 months - DM foot due in 8 months 2.Dyslipidemia - Statin recommended/declined 3.Benign hypertension - Stable on current regimen - BMP annually, reviewed and wnl f/u 4 months for re-check. Time: 40mins 5 - pre-visit chart review 30 - visit, inclusive of history, exam, and discussion of assessment/plan 5 - post-visit documentation/orders/coordination of care Problem List/Past Medical History Ongoing Arthritis Benign hypertension Bilateral carotid artery stenosis Carpal tunnel syndrome, bilateral Chews loose leaf tobacco Decreased libido Dyslipidemia Fibromyalgia Hearing loss Left hip pain Left lumbar radiculopathy Protrusion of lumbar intervertebral disc Seasonal allergies Statin declined TIA (transient ischemic attack) Type 2 diabetes mellitus with cataract Vasomotor rhinitis Vertebral artery stenosis Resolved DDD DJD, SITE UNSPECIFIED Rheumatic fever Tendon injury - upper limb Procedure/Surgical History rotator cuff repairs, bilateral Medications cholecalciferol(Vitamin D3) diabetic supplies(True Metrix Test Strips), See Instructions, 1 refills fluticasone nasal(fluticasone 50 mcg/inh nasal spray), See Instructions, 5 refills ibuprofen(ibuprofen 800 mg oral tablet), 800 mg= 1 tab, PO, tid, PRN, 3 refills insulin glargine(Lantus Vial 100 units/mL subcutaneous solution), See Instructions, 1 refills losartan(losartan 100 mg oral tablet), 100 mg= 1 tab, PO, Daily, 3 refills lutein(lutein 20 mg oral capsule), 20 mg= 1 cap, PO, Daily multivitamin(Vitamin B Complex oral capsule), 1 cap, PO, Daily multivitamin with minerals(Eye Health Formula oral capsule), 1 cap, PO, Daily omega-3 polyunsaturated fatty acids([place]-3 Fish Oil), 1 tab, PO, Daily syringe(BD 0.5 mL Ultra-Fine II Short Insulin Syringe 31G x 5/16"), See Instructions, 9 refills syringe(BD 0.5 mL Ultra-Fine II Short Insulin Syringe 31G x 5/16"), See Instructions, 8 refills unknown medication unlisted medication(BD Insulin Syringe U/F Miscellaneous 31G X 5/16" 0.5 ML), See Instructions zinc acetate(zinc (as acetate) 50 mg oral capsule) Allergies Allergy Not found in Searchseasonal Social History Smoking Status Never smoked cigarettes Tobacco - Medium Risk Use:Never smoker Type:Oral Family History Alzheimer disease: Mother. Diabetes: Father. Heart disease: Mother. Parkinson disease: Mother. Health Status Family Member(s) Sister: History is negative Son: History is negative Son: History is negative Son: History is negative Family Member(s) Relationship: Father, Age: 67 Years, Cause: DM Relationship: Mother, Age: 67 Years, Cause: Alzheimers Immunizations Vaccine Date Status zoster vaccine, inactivated 01/04/2019 Recorded zoster vaccine, inactivated 07/24/2018 Recorded pneumococcal 13-valent vaccine 05/04/2014 Given pneumococcal 23-valent vaccine 07/25/2011 Given tetanus/diphtheria/pertuss, acel (Tdap) 07/25/2011 Given zoster vaccine live 09/22/2009 Recorded tetanus/diphtheria/pertuss, acel (Tdap) 06/2003 Recorded tetanus/diphtheria/pertuss, acel (Tdap) 06/17/2003 Recorded Comments : 2021-03-07: Historical information-source unspecified tetanus toxoids-diphtheria, Td (Adult) 08/31/1992 Recorded Comments : 2021-03-07: Historical information-source unspecified Recommendations Health Maintenance Pending(in the next year) OverDue Medicare Annual Wellness Visit due12/20/20and every 1year Adult Influenza Vaccine due12/15/23and every 1year Due Adult COVID-19 Vaccination due05/01/24Unknown Frequency Adult Social Determinants of Health Screening due05/01/24Unknown Frequency Adult Tdap/Td Vaccine due05/01/24Unknown Frequency Due In Future Diabetic Eye Exam not due until10/26/24and every 731day Diabetes Management A1c not due until04/22/25and every 366day Satisfied(in the past 1 year) Satisfied Body Mass Index on10/11/23.Satisfied by LINDA Larose Brittany Diabetes Management A1c on04/21/24.Satisfied by Contributor_system, [email or web address] Diabetes Nephropathy Management on08/26/23.Satisfied by Contributor_system, [email or web address] Lipid Screening on04/21/24.Satisfied by Contributor_system, [email or web address] Electronic Signature on File Electronically Reviewed/Signed by: Gaby Maza MD Author Signature Dt/Tm:05/01/2024 01:34 PM Department of Family Medicine [facility] Patient Care team information Care Team Personnel Name: MD Hdez Juan Position: Physician - Family Med Member Role: Lifetime Relationship Address: [address] [place] [id number] [place] Name: MD Maza Ravishankar E Position: Physician Member Role: Primary Care Provider Address: [address] [place] [address] [place] Care Team Related Persons Name: ROSALBA BLACKMON
--- NOTE | 2024-05-08 05:35 | Electrocardiogram Report ---
Test Reason : Blood Pressure : */* mmHG Vent. Rate : 69 BPM Atrial Rate : 69 BPM P-R Int : 174 ms QRS Dur : 86 ms QT Int : 372 ms P-R-T Axes : 58 -11 19 degrees QTcB Int : 398 ms Normal sinus rhythm Normal ECG When compared with ECG of 20-Sep-2020 16:26, Minimal criteria for Anterior infarct are no longer Present Confirmed by Manpreet Berger ([id number]) on 05/08/2024 5:35:13 AM Referred By: REFERRED SELF Confirmed By: Manpreet Berger
[2024-05-08 07:48] LABS: Basophils # (auto) 0.05 K/uL (0.00-0.20); Eosinophils # (auto) 0.22 K/uL (0.00-0.50); Eosinophils % (auto) 4.3 %; Hematocrit (blood only) 37.1 % (42.0-52.0); Hemoglobin 12.7 g/dl (14.0-18.0); Immature Granulocytes # (auto) 0.02 K/uL (0.01-0.20); Immature Granulocytes % (auto) 0.4 %; Lymphocytes # (auto) 0.99 K/uL (1.20-3.40); Lymphocytes % (auto) 19.5 %; Mean Corpuscular Hemoglobin 31.1 pg (25.0-34.0); Mean Corpuscular Hgb Conc 34.2 g/dL (32.0-36.0); Mean Corpuscular Volume 90.7 fL (80.0-100.0); Mean Platelet Volume 10.2 fL (9.4-12.4); Monocytes # (auto) 0.54 K/uL (0.11-0.59); Monocytes % (auto) 10.6 %; Neutrophils # (auto) 3.26 K/uL (1.40-6.50); Neutrophils % (auto) 64.2 %; Platelet Count 173 K/uL (130-400); RDW Standard Deviation 43.2 fL (36.4-46.3); Red Blood Count 4.09 M/uL (4.70-6.10); White Blood Count 5.08 K/ul (4.8-10.8)
[2024-05-08 08:08] LABS: BUN Creatinine Ratio 18.3 (10-20); Calcium 8.6 mg/dl (8.6-10.3); Creatinine Clr Calc Pharmacy 46.8 ml/min; Magnesium 2.1 mg/dl (1.7-2.4); Potassium 4.2 mmol/L (3.5-5.1)
[2024-05-08] MEDS: ASPIRIN 81 MG ECTAB PO SCH (08:15)
[2024-05-08] MEDS: ROSUVASTATIN CALCIUM 10 MG TAB PO SCH (08:15)
[2024-05-08] MEDS: CLOPIDOGREL BISULFATE 75 MG TAB PO SCH (08:15)
--- NOTE | 2024-05-08 09:02 | Neurology Progress Note ---
Date of Service May 08, 2024 Assessment & Plan (1) Ischemic stroke: Admission and Anticipated Discharge Date Admission Date: May 07, 2024 Subjective pt feeling well. no symptoms. echo negative. Results & Data Vital Signs (Past 12 Hours) Vital Signs Temp Pulse Pulse Resp BP Pulse Ox O2 Del Method 05/08/24 08:00 36.8 C 75 18 149/81 H 97 Room Air 05/08/24 07:11 60 05/08/24 03:54 36.5 C 61 16 170/91 H 96 Room Air 05/08/24 02:53 05/07/24 22:59 36.4 C L 72 18 147/80 H 95 Room Air 05/07/24 22:39 76 O2 Del Method 05/08/24 08:00 05/08/24 07:11 05/08/24 03:54 05/08/24 02:53 Room Air 05/07/24 22:59 05/07/24 22:39 Exam (Neuro) Physical Exam: Neuro: Mental: AOx4, fluent speech, normal comprehension, no apraxia, no neglect CN: Full EOM, symmetric face, Motor: No abnormal movements, Coord: intact grossly Impression: 78 yo male with acute ischemic left frontal/parietal areas in setting of DM and hypoglycemic event and now resolved aphasia and confusion. Doing well. Recommendations: SBP goal less than 140. LDL goal less than 80 DAPT 21 days and monotherapy after that. not much to add at this point pt can f/u with PCP for routine stroke risk modification call again if new question. Chart reviewed I have spent more than 50% educating patient about potential diagnosis and neurological evaluation and coordinating care with patient's treatment team. Total time spent (including chart review and coordination of care): 35 min (this includes chart review). PG Care Time/CCT Total # of Minutes Spent Total Time Spent with Patient: Total time spent is greater than 50% in coordination of care (as documented) at patient's floor/unit and/or counseling patient: Coding Level of Care Code 61632 SUB INP/OBS CARE 2/35MIN Diagnoses Ischemic stroke I63.9
--- NOTE | 2024-05-08 09:04 | Pharmacy Report ---
- Date of Service May 08, 2024 - Pharmacy CVA/TIA Medication Review Medications to Prevent Stroke handout has been added to the patients discharge packet. Antiplatelet(s) * aspirin 81 mg daily, plavix 75 mg daily x 3 weeks, then single agent Cholesterol * High intensity statin deferred due to hx of intolerance per notes - rosuvastatin 10 mg started DVT Prophylaxis * Enoxaparin SQ Therapeutic Anticoagulation * Patient to be monitored on telemetry and if found to have afib/flutter, neurology recommends considering anticoagulation if no contraindication Type 2 Diabetes * Patient has T2DM, a diabetes medication with proven CVD benefit is reasonable to be deferred to their outpatient provider due to familiarity with risks/benefits of such therapies. "Medications to prevent stroke" handout has already been added to the patient's discharge packet, which instructs the patient to follow up with their outpatient provider to evaluate which diabetes medication with proven CVD benefit is best for them * Patient with hypoglycemia on admission, would ensure insulin dosing appropriate at time of discharge to prevent any future hypoglycemic events.
--- NOTE | 2024-05-08 11:11 | Hospitalist Progress Note ---
Date of Service May 08, 2024 Assessment & Plan (1) CVA (cerebral vascular accident): Plan: 78 yo male w/ a h/o CVA here with acute onset of expressive aphasia, found to have acute ischemic left frontoparietal CVA on Brain MRI. CTA H/N with 45% LICA stenosis-could be culprit ECHO preserved EF, no thrombus, no bubble study performed due to age Tele no arrhythmias Lipids acceptable but started moderate intensity statin with Crestor 10mg daily (given h/o inability to tolerate statins previously) HgbA1C 7.3%-fairly good DM control Started DAPT x 3 weeks and then Plavix alone (loaded with Plaavix, resumed ASA 81mg daily (had been on this until 1 month ago) Had recrudescence of expressive aphasia when BP dropped to 120s/70s on 05/08 which improved with lying back in bed. Repeat head CT neg for acute changes Start NS 125mL/ hr x 500mL to keep BPs>140/90, permissive HTN-continue holding losartan from home PT/OT/ST tita appreciated-no rehab needed but will arrange outpt speech therapy monitor on tele for Afib and needs correction event monitoring after discharge Appreciate Neuro consult (2) Cerebrovascular disease: Plan: Known vertebral artery stenosis, left ICA stenosis as above Starting DAPT x 3 weeks, then Plavix monotherapy Started Crestor (3) Carotid artery stenosis: Plan: as above, antiplatelet therapy and statin follow over time No need for Vascular intervention at this time (4) Tobacco abuse: Plan: counseled on cessation of chewing tobacco (5) Diabetes: Plan: HgbA1C fairly well controlled at 7.3% COntinue Novolog sliding scale and Lantus 10 units Consider adding on SGLT-2i as outpt (6) Essential (primary) hypertension: Plan: permissive HTN currently giving IVFs to prevent recrudescence of symptoms holding home losartan Plan DVT proph-Lovenox SQ Dispo-continued stay to stabilize BPs and monitor for worsening stroke symptoms, likely dc to home tomorrow Discussed all care with on phone on 05/08 Admission and Anticipated Discharge Date Admission Date: May 07, 2024 Subjective Pt eloped outside the hospital this AM to place a tobacco chew in his mouth. He was found and returned to his room, shortly after which he reported feeling lightheaded and nauseated. He then had return of fairly significant expressive aphasia. A stroke alert was called by nursing immediately after she messaged me of these findings. His BPs were 120s/70s approx at that time. When I came to see him, he was certainly having worse expressive aphasia and some receptive aphasia as well. He had no other focal neuro deficits on his exam and NIHSS was 3. Within a few minutes, his aphasia and dysarthria improved greatly and NIHSS back to 1. I discussed his care with Neurology on the phone after the event. CT head no acute findings. Tele with NSR rates 70-90s Physical Exam Constitutional: WD/WN, vitals as above Eyes: PERRL, conjunctivae normal, anicteric sclerae EOM intact bilaterally ENMT: external ear and nose normal, oropharynx normal Neck: trachea midline, no thyromegaly Respiratory: normal respiratory effort, lungs clear to auscultation Cardiovascular: RRR, no murmur, no edema Chest (Breasts): Chest: normal inspection of chest Gastrointestinal (Abdomen): normal bowel sounds, soft, nontender, no hepatosplenomegaly Musculoskeletal: Extremities: extremities normal to inspection; no cyanosis and no clubbing Skin: no rashes, warm and dry Neurologic: CN's II-XI intact bilaterally and awake; no focal motor deficits and not confused Speech / Cognition: + abnormal speech and + expressive aphasia Psychiatric: Orientation: alert and oriented x 3 Lymphatic: no lymphedema Results & Data Results & Data Vital Signs (Past 12 Hours) Vital Signs Temp Pulse Pulse Resp BP Pulse Ox O2 Del Method 05/08/24 08:00 36.8 C 75 18 149/81 H 97 Room Air 05/08/24 07:11 60 05/08/24 03:54 36.5 C 61 16 170/91 H 96 Room Air 05/08/24 02:53 O2 Del Method 05/08/24 08:00 05/08/24 07:11 05/08/24 03:54 05/08/24 02:53 Room Air Laboratory Results CBC, BMP, magnesium reviewed Diagnostic Findings ECHO reviewed PG Care Time/CCT Total # of Minutes Spent Total Time Spent with Patient: Total time spent is greater than 50% in coordination of care (as documented) at patient's floor/unit and/or counseling patient: Coding Level of Care Code 75755 SUB INP/OBS CARE 3/50MIN Diagnoses CVA (cerebral vascular accident) I63.9 Cerebrovascular disease I67.9 Carotid artery stenosis I65.29 Tobacco abuse Z72.0 Diabetes E11.9 Essential (primary) hypertension I10
--- NOTE | 2024-05-08 11:21 | CT Scan Report ---
CT OF THE HEAD WITHOUT CONTRAST CLINICAL HISTORY: aphasia, worsening symptoms COMPARISON STUDY: Head CT and CTA of the head May 06, 2024. MRI of the brain May 07, 2024. CT DOSE: 625.8 mGy.cm TECHNIQUE: Helical axial images of the head were obtained without IV contrast. Automated exposure con trol was utilized for the study. A dose lowering technique was utilized adhering to the principles o f ALARA. FINDINGS: No acute intracranial hemorrhage, midline shift or mass effect is present. Ventricular syst em is stable. Basal cisterns are patent. There are no extra axial collections. White matter hypodensi ty suggests small vessel disease. Encephalomalacia consistent with old left frontoparietal infarcts i s noted. Subtle left frontoparietal hypodensity may correspond to the acute infarcts on MRI of [facility] 2023. No definite new sites of infarction are identified by CT. IMPRESSION: 1. No acute intracranial hemorrhage or mass effect. 2. Subtle left frontoparietal hypodensity which likely corresponds to the acute infarcts on MRI of [facility] 2023. No new infarcts identified by CT. 3. Several old left frontoparietal infarcts. ACT 112: Negative or not required by law. Electronically signed by: Jorgito Case M.D. 05/08/2024 11:20 AM
[2024-05-08] MEDS: SODIUM CHLORIDE 0.9% 500 ML IV ONE (11:25)
[2024-05-09 07:14] LABS: Basophils # (auto) 0.07 K/uL (0.00-0.20); Basophils % (auto) 1.3 %; Eosinophils # (auto) 0.22 K/uL (0.00-0.50); Eosinophils % (auto) 4.1 %; Hematocrit (blood only) 36.2 % (42.0-52.0); Hemoglobin 12.3 g/dl (14.0-18.0); Immature Granulocytes # (auto) 0.02 K/uL (0.01-0.20); Immature Granulocytes % (auto) 0.4 %; Lymphocytes # (auto) 1.24 K/uL (1.20-3.40); Lymphocytes % (auto) 23.2 %; Mean Corpuscular Volume 91.2 fL (80.0-100.0); Mean Platelet Volume 10.1 fL (9.4-12.4); Monocytes % (auto) 11.2 %; Neutrophils # (auto) 3.19 K/uL (1.40-6.50); Neutrophils % (auto) 59.8 %; Platelet Count 173 K/uL (130-400); RDW Coefficient of Variation 13.1 % (11.5-14.5); RDW Standard Deviation 43.4 fL (36.4-46.3); Red Blood Count 3.97 M/uL (4.70-6.10); White Blood Count 5.34 K/ul (4.8-10.8)
[2024-05-09 07:52] LABS: BUN Creatinine Ratio 18.7 (10-20); Calcium 8.6 mg/dl (8.6-10.3); Magnesium 2.1 mg/dl (1.7-2.4); Potassium 4.1 mmol/L (3.5-5.1)
[2024-05-09 11:53] VITALS: BP 138/74; PULSE 80; RESP 18; TEMP 97.9; O2SAT 97
--- NOTE | 2024-05-09 12:42 | Discharge Summary ---
Discharge Summary Date of Service May 09, 2024 Principal Dx & Hospital Course #1 = Principal Diagnosis (1) CVA (cerebral vascular accident): 78 yo male w/ a h/o CVA here with acute onset of expressive aphasia, found to have acute ischemic left frontoparietal CVA on Brain MRI. CTA H/N with 45% LICA stenosis-could be culprit ECHO preserved EF, no thrombus, no bubble study performed due to age Tele no arrhythmias throughout his stay Lipids acceptable but started high intensity statin with Crestor 20mg daily HgbA1C 7.3%-fairly good DM control Started DAPT x 3 weeks and then Plavix alone (loaded with Plavix, resumed ASA 81mg daily (had been on this until 1 month ago)-discontinue aspirin on 05/28 and continue on Plavix alone at that point While he was admitted, he had recrudescence of expressive aphasia when BP dropped to 120s/70s on 05/08 which improved with lying back in bed. Repeat head CT neg for acute changes. He was given some gentle normal saline and his blood pressures came back up and symptoms resolved. Continue to hold losartan on discharge for 3 more days and then can resume PT/OT/ST evals appreciated-no rehab needed but will arrange outpt speech therapy He needs prison cardiac event monitoring after discharge-our nurse navigator will arrange this to look for occult A-fib Appreciate Neuro [id number] with neurology in 2 to 3 weeks (2) Cerebrovascular disease: Known vertebral artery stenosis, left ICA stenosis as above Starting DAPT x 3 weeks, then Plavix monotherapy Started Crestor (3) Carotid artery stenosis: as above, antiplatelet therapy and statin follow over time No need for Vascular intervention at this time (4) Tobacco abuse: counseled on cessation of chewing tobacco (5) Diabetes: HgbA1C fairly well controlled at 7.3% He had some hypoglycemia on arrival and his Lantus dose will be reduced to 15 units at bedtime on discharge rather than 20 units Consider adding on SGLT-2i as outpt-defer to PCP (6) Essential (primary) hypertension: permissive HTN to prevent recrudescence of symptoms holding home losartan for 3 more days after discharge Plan DVT proph-Lovenox SQ Dispo-stable for discharge to home Discussed all care with on phone on 05/08 Notes For Next Care Provider Needs outpatient speech therapy Needs long-term cardiac event monitoring after discharge Medication Changes From Visit Added Plavix and aspirin x 3 weeks, then Plavix monotherapy Added Crestor 20 mg daily Decrease Lantus to 15 units daily Holding losartan Admission HPI Per Admitting Provider The patient is a 78-year-old male with a past medical history including dyslipidemia, carotid artery stenosis bilaterally, history of TIA, tobacco abuse, vertebral artery stenosis, cerebrovascular disease, diabetes mellitus, hypertension. He presents to the emergency department with symptoms as noted above. Discharge Exam Constitutional WD/WN, vitals as above Eyes PERRL, conjunctivae normal, anicteric sclerae EOM intact bilaterally ENMT external ear and nose normal, oropharynx normal Neck trachea midline, no thyromegaly Respiratory normal respiratory effort, lungs clear to auscultation Cardiovascular RRR, no murmur, no edema Chest (Breasts) Chest: normal inspection of chest Gastrointestinal (Abdomen) normal bowel sounds, soft, nontender, no hepatosplenomegaly Musculoskeletal Extremities: extremities normal to inspection; no cyanosis and no clubbing Skin no rashes, warm and dry Neurologic CN's II-XI intact bilaterally and awake; no focal motor deficits and not confused Speech / Cognition: normal speech and no expressive aphasia Psychiatric Orientation: alert and oriented x 3 Lymphatic no lymphedema Discharge Plan Discharge Items Patient Disposition: Home - Self-Care Reason For Visit: ACUTE CVA Discharge Diagnosis: Acute ischemic stroke Expressive aphasia Condition on Discharge: Good Activity: Resume your previous activity Non-emergency contact: Primary Care Provider and Neurologist Call non-emergency contact if: you have any medication questions and your symptoms worsen Follow-up/Referrals: Billy Maza MD [Primary Care Provider] - (Follow-up within 1 to 2 weeks) Josr Aguilar MD [Physician] - (Call to make a follow-up appointment with Dr. Aguilar or one of the neurology physician assistants within 2 to 3 weeks.) Diet: Carb Count or DM1 and Heart Healthy Addtl Attending Provider Instructions: You were admitted and found to have a stroke that causes you to have difficulty with speaking. You are now much improved. It is important for your blood pressure did not drop too low at this time so please do not take your home losartan until next week. You were started on aspirin and clopidogrel which are both blood thinners to prevent future strokes. After 3 weeks, you should stop taking the aspirin and only take clopidogrel from now on. You are also started on a cholesterol medication called rosuvastatin which will also help prevent strokes. You should not take ibuprofen as this can increase your risk for stroke in the future. You can take acetaminophen as needed for pain. Because your blood sugar was low when you came to the hospital, your Lantus dose was decreased. Please only take 15 units at bedtime instead of 20. Risk Factors for Stroke: You can reduce your chances of stroke by working with your medical provider to adopt a healthy lifestyle. Some specific ways to lower your chance of stroke are: * If you are a smoker, now is the time to stop smoking cigarettes * If you are diabetic, improve the control of your blood sugars * Avoid excessive amounts of alcohol * Control high blood pressure * Lose weight if you are overweight * Be sure to lead an active lifestyle * Eat a healthy diet low in salt, cholesterol and fat You should know about other risk factors for stroke that you are unable to control. These include: * Age 55 years or older * Male gender * Certain racial groups: , or / * Family History of Stroke, Mini stroke or Heart Attack * Sickle Cell Disease Follow Up: It is important for you to keep your follow up appointments with your medical provider. Who to Call and When: Medical Emergencies: Call 911 immediately if you experience any of the following warning signs and symptoms of Stroke: * Sudden numbness or weakness of the face, arm or leg, especially on one side of the body * Sudden confusion, trouble speaking or understanding * Sudden trouble seeing in one or both eyes * Sudden trouble walking, dizziness, loss of balance or coordination * Sudden severe headache with no cause Do not delay calling 911 if you experience any warning signs or symptoms of a stroke. Delay in seeking medical attention may affect what treatments can be given to you. . Pending Studies at Discharge: No Stand-Alone Forms: [facility], Smoking Cessation, Medications to Prevent Stroke Medications and DC Order Prescriptions: New clopidogrel 75 mg Tablet 75 mg PO QAM Qty: 30 0RF rosuvastatin 20 mg tablet 20 mg PO DAILY Qty: 30 0RF aspirin 81 mg Tablet,Delayed Release (Dr/Ec) 81 mg PO QAM 19 Days Qty: 19 0RF Continued multivitamin Tablet 1 tab PO QAM fluticasone propionate 50 mcg/actuation spray,suspension 2 spray INTRANASAL DAILY PRN (Reason: Nasal Congestion) cholecalciferol (vitamin D3) [Vitamin D3] 25 mcg (1,000 unit) Capsule 25 mcg PO BID zinc sulfate 50 mg zinc (220 mg) Capsule 50 mg PO QAM [facility] 50 mg-15 unit- 4.5 mg-2.5 mg Tablet,Chewable 1 tab PO QAM ketoconazole 2 % shampoo 1 applic TOPICAL UD triamcinolone acetonide 0.1 % cream 1 applic TOPICAL UD Rx Instructions: affected areas Changed insulin glargine [Lantus U-100 Insulin] 100 unit/mL solution 15 unit SUBCUT HS Qty: 10 0RF Rx Instructions: DEPENDS ON BSG AT HS Held losartan 100 mg tablet 100 mg PO QAM Hold Instructions: Resume on 05/12/24. Discontinued ibuprofen 800 mg tablet 800 mg PO TID PRN (Reason: Pain) Discharge Orders: Discharge Order (Routine); Ordered 05/09/24 Ordered By: Crystal Stack Admission Data Admit Date/Time: 05/08/24 11:22 Attending Provider: Crystal Stack Admit Provider: Cristian Slater Primary Care Provider: Billy Maza Other Providers: Cristian Slater; Josr Aguilar Hospital Stay Data Consultations 05/07/24 00:05 ED Decision to Admit Stat 05/07/24 02:53 Consult Neurology Routine Diagnostic Imagining Performed 05/06/24 22:16 CT angio head w con Stat CT angio neck with con Stat CT head/brain wo con Stat 05/07/24 00:04 MR brain wo con Stat 05/08/24 11:01 CT head/brain wo con Stat Echocardiogram Pending Results Patient Have Any Pending Studies at Discharge: No Discharge Instructions Given to Patient (Per Discharging Provider) You were admitted and found to have a stroke that causes you to have difficulty with speaking. You are now much improved. It is important for your blood pressure did not drop too low at this time so please do not take your home losartan until next week. You were started on aspirin and clopidogrel which are both blood thinners to prevent future strokes. After 3 weeks, you should stop taking the aspirin and only take clopidogrel from now on. You are also started on a cholesterol medication called rosuvastatin which will also help prevent strokes. You should not take ibuprofen as this can increase your risk for stroke in the future. You can take acetaminophen as needed for pain. Because your blood sugar was low when you came to the hospital, your Lantus dose was decreased. Please only take 15 units at bedtime instead of 20. Risk Factors for Stroke: You can reduce your chances of stroke by working with your medical provider to adopt a healthy lifestyle. Some specific ways to lower your chance of stroke are: * If you are a smoker, now is the time to stop smoking cigarettes * If you are diabetic, improve the control of your blood sugars * Avoid excessive amounts of alcohol * Control high blood pressure * Lose weight if you are overweight * Be sure to lead an active lifestyle * Eat a healthy diet low in salt, cholesterol and fat You should know about other risk factors for stroke that you are unable to control. These include: * Age 55 years or older * Male gender * Certain racial groups: , or / * Family History of Stroke, Mini stroke or Heart Attack * Sickle Cell Disease Follow Up: It is important for you to keep your follow up appointments with your medical provider. Who to Call and When: Medical Emergencies: Call 911 immediately if you experience any of the following warning signs and symptoms of Stroke: * Sudden numbness or weakness of the face, arm or leg, especially on one side of the body * Sudden confusion, trouble speaking or understanding * Sudden trouble seeing in one or both eyes * Sudden trouble walking, dizziness, loss of balance or coordination * Sudden severe headache with no cause Do not delay calling 911 if you experience any warning signs or symptoms of a stroke. Delay in seeking medical attention may affect what treatments can be given to you. . Total Time Total Time Spent Total Time Spent (In Minutes): 35 minutes Total Time Includes: Examination of the Patient, Discharge Planning and Medica tion Reconciliation Coding Level of Care Code 34494 INP/OBS DISCH >30 MIN Diagnoses CVA (cerebral vascular accident) I63.9 Cerebrovascular disease I67.9 Carotid artery stenosis I65.29 Tobacco abuse Z72.0 Diabetes E11.9 Essential (primary) hypertension I10
== END 2024-05-09 14:14 | disposition home or self-care (01) | DRG 66 ==
LOC: 2S 21:57 → ED 21:57 → SUATTDRO 05-07 01:00 → 2S 05-07 02:26

== ENCOUNTER 2025-01-01 07:02 | Observation (INO) ==
--- NOTE | 2024-12-07 11:19 | PAT Medication Instructions ---
Medication Instructions Date of Service December 07, 2024 Home Medications Medication Instructions Recorded clopidogrel 75 mg tablet 75 mg PO QAM #30 tabs 05/09/24 cholecalciferol (vitamin D3) 25 mcg (1,000 unit) capsule (Vitamin D3) 25 mcg PO BID fluticasone propionate 50 mcg/actuation nasal spray,suspension 2 spray intranasal DAILY PRN Nasal Congestion multivitamin 1 tab PO QAM vit C 50 mg-E 15 unit-zinc cit 4.5 mg-lutein 2.5 mg-zeaxan chew tablet ([facility]) 1 tab PO QAM zinc sulfate 50 mg zinc (220 mg) capsule 50 mg PO QAM ketoconazole 2 % shampoo 1 applic topical UD PRN Skin Irritation losartan 100 mg tablet 100 mg PO QAM triamcinolone acetonide 0.1 % topical cream 1 applic topical UD PRN Rash clopidogrel 75 mg tablet 75 mg PO QAM Beet 1 tab PO QAM fish, borage, flaxseed oils-omega 3,6,9 comb no.1 1,200 mg capsule ([place] 3-6-9) 1 cap PO QAM insulin glargine 100 unit/mL subcutaneous solution (Lantus U-100 Insulin) 16 unit subcut HS lutein 20 mg tablet 20 mg PO QAM rosuvastatin 20 mg tablet 20 mg PO QAM vitamin B complex 1 tab PO QAM ASK your prescriber and surgeon clopidogrel/plavix 75 mg tablet 75 mg PO QAM (From anesthesia perspective, req uest Clopiodgrel/Plavix be stopped 7 days before surgery. Please check if okay with doctor that prescribes this to you) STOP taking 2 weeks before surgery (or as soon as possible if surgery is within 2 weeks) vit C 50 mg-E 15 unit-zinc cit 4.5 mg-lutein 2.5 mg-zeaxan chew tablet ([facility]) 1 tab PO QAM Beet 1 tab PO QAM fish, borage, flaxseed oils-omega 3,6,9 comb no.1 1,200 mg capsule ([place] 3-6-9) 1 cap PO QAM lutein 20 mg tablet 20 mg PO QAM STOP taking 24 hours before surgery ketoconazole 2 % shampoo 1 applic topical UD PRN Skin Irritation triamcinolone acetonide 0.1 % topical cream 1 applic topical UD PRN Rash DO NOT take the morning of surgery cholecalciferol (vitamin D3) 25 mcg (1,000 unit) capsule (Vitamin D3) 25 mcg PO BID multivitamin 1 tab PO QAM zinc sulfate 50 mg zinc (220 mg) capsule 50 mg PO QAM losartan 100 mg tablet 100 mg PO QAM vitamin B complex 1 tab PO QAM Take morning of surgery With a small sip of water, OTHERWISE NOTHING TO EAT OR DRINK AFTER MIDNIGHT: fluticasone propionate 50 mcg/actuation nasal spray,suspension 2 spray intranasal DAILY PRN Nasal Congestion (if needed) rosuvastatin 20 mg tablet 20 mg PO QAM Take evening before surgery cholecalciferol (vitamin D3) 25 mcg (1,000 unit) capsule (Vitamin D3) 25 mcg PO BID fluticasone propionate 50 mcg/actuation nasal spray,suspension 2 spray intranasal DAILY PRN Nasal Congestion (if needed) insulin glargine 100 unit/mL subcutaneous solution (Lantus U-100 Insulin) 16 unit subcut HS Other Notes If you have any questions please call us at [phone] or [phone] or [phone] or [phone]
--- NOTE | 2024-12-08 13:45 | Anesthesiology Consultation ---
Date of Service December 08, 2024 Assessment & Plan (1) Encounter for pre-operative examination: Plan - awaiting [place] neurology clearance. - Case discussed in detail with Dr. Rea who advised patient will need [place] neurology clearance given 04/2024 stroke. Surgeon's office made aware. - check BSG am DOS. - Outpatient joint assessment: Patient is currently scheduled for inpatient pathway. If re-evaluated and patient/surgeon requests outpatient pathway, colton ent is not advised candidate for outpatient joint program. Chart Review Chart Review: Pending: Refer to Additional Notes / Consult section and Patient seen in Pre Admission Testing Teaching & Discussion Pre-Anesthesia Teaching/Discussion Notes: Instructed NPO after midnight before surgery, except medications with 15 cc of water. Medication instructions provided according to the PAT guidelines. History Surgery Operation Date: 01/01/25 07:00 Proposed Procedures p Left Total Hip Arthroplasty - Jose David Robles MD Height/Weight Height: 5 ft 4 in Weight: 62.1 kg Allergies Allergy/AdvReac Type Severity Reaction Status Date / Time atorvastatin AdvReac Severe Headache,weakness,back Verified 12/07/24 08:35 pain. lisinopril AdvReac Intermediate Cough Verified 12/07/24 08:35 Medications Home Medications Medication Instructions Recorded Confirmed Last Taken cholecalciferol (vitamin D3) 25 25 mcg PO BID 09/20/20 12/07/24 05/06/24 mcg (1,000 unit) capsule (Vitamin D3) fluticasone propionate 50 2 spray intranasal DAILY PRN Nasal 09/20/20 12/07/24 Unknown mcg/actuation nasal Congestion spray,suspension multivitamin 1 tab PO QAM 09/20/20 12/07/24 05/06/24 vit C 50 mg-E 15 unit-zinc cit 4.5 1 tab PO QAM 09/20/20 12/07/24 05/06/24 mg-lutein 2.5 mg-zeaxan chew tablet ([facility]) zinc sulfate 50 mg zinc (220 mg) 50 mg PO QAM 09/20/20 12/07/24 05/06/24 capsule ketoconazole 2 % shampoo 1 applic topical UD PRN Skin 05/07/24 12/07/24 Unknown Irritation losartan 100 mg tablet 100 mg PO QAM 05/07/24 12/07/24 05/06/24 triamcinolone acetonide 0.1 % 1 applic topical UD PRN Rash 05/07/24 12/07/24 05/06/24 topical cream clopidogrel 75 mg tablet 75 mg PO QAM #30 tabs 05/09/24 12/07/24 Unknown Beet 1 tab PO QAM 12/07/24 12/07/24 Unknown fish, borage, flaxseed oils-omega 1 cap PO QAM 12/07/24 12/07/24 Unknown 3,6,9 comb no.1 1,200 mg capsule ([place] 3-6-9) insulin glargine 100 unit/mL 16 unit subcut HS 12/07/24 12/07/24 Unknown subcutaneous solution (Lantus U-100 Insulin) lutein 20 mg tablet 20 mg PO QAM 12/07/24 12/07/24 Unknown rosuvastatin 20 mg tablet 20 mg PO QAM 12/07/24 12/07/24 Unknown vitamin B complex 1 tab PO QAM 12/07/24 12/07/24 Unknown Past Medical History Medical History Aortic regurgitation Carotid artery stenosis Partially calcified prominent atheromatous changes involving the proximal left internal carotid artery, extending to the carotid bifurcation. There is mild to moderate, proximally 45% luminal stenosis using NASCET criteria the mid to distal left internal carotid artery is patent. The left common carotid artery is patent. The common carotid and internal carotid arteries are patent without significant stenosis or occlusion. Diabetes mellitus, type 2 Hearing deficit History of rheumatic fever as a child History of stroke x2--most recent 05/06/2024--reason for plavix, "no mobility issues does have some issues retaining information, and some issues with writing"--follows with [place] neurologist Hyperlipidemia Hypertension controlled, stable per pt On anticoagulant therapy plavix daily Osteoarthritis Vertebral artery stenosis entered into EMR 09/21/20. Head and neck CTA 2023: The right vertebral artery is no longer identified proximally. There is reconstitution of the mid cervical segment with the distal small bowel caliber right vertebral artery remaining patent and stable in appearance. This is presumed related to retrograde filling from the contralateral dominant vertebral artery. The left vertebral artery is widely patent and stable in appearance. Patient denies h/o seizures, heart attack, heart failure, DVTs or blood transfusions. Exercise / Class Metabolic Activity II 4-5 Yardwork/Stairs/Walk up hill (denies chest discomfort or shortness of breath with one flight of stairs) Past Family History Family History Mother Myocardial infarction Parkinson disease Stroke Other No family history of adverse response to anesthesia Past Surgical History Surgical History History of bilateral carpal tunnel release History of repair of left rotator cuff History of repair of right rotator cuff History of tooth extraction dentures Past Anesthesia History No Hx of Anesthesia Complications and No Family Hx of Anesthesia Complications History of PONV No Hx of PONV and No Hx of Motion Sickness Social History Smoking Status: Never smoker Do You Dip or Chew Tobacco: Yes (chews (advised on policy)) Hx Alcohol Use: Yes Alcohol type: beer alcohol intake frequency: holidays/special occasions only Hx Substance Use: No substance use type: does not use Review of Systems Snoring, denies witnessed apneas. Patient denies chest pain, shortness of breath, dyspnea on exertion, reflux, fever, chills, cough, wheezing, or palpitations. Physical Exam Vital Signs Vitals BP 120/83 P 81 TEMP 98.8 SP02 98% on RA RESP 18 Physical Patient resting comfortably in chair in no acute distress, alert and oriented, responding appropriately throughout visit Full cervical extension range of motion without pain TMD 3.5 finger breadths Mallampati Score 2 Dentition: edentulous, full upper and lower dentures Lungs: normal respiratory effort. Good air movement, clear throughout to auscultation, no adventitious breath sounds Cardiac: regular rate and rhythm, no murmurs noted Carotid arteries: negative bruit bilat Lab Results Anesthesia Preop Results Results Anesthesia Widget: WBC 6.71 K/ul (4.8-10.8) 12/08/24 Hgb 12.7 g/dl (14.0-18.0) L 12/08/24 Hct 37.1 % (42.0-52.0) L 12/08/24 Plt 191 K/uL (130-400) 12/08/24 Na 138 mmol/L (136-145) 12/08/24 K 4.5 mmol/L (3.5-5.1) 12/08/24 Cl 105 mmol/L (98-107) 12/08/24 CO2 27 mmol/L (21-32) 12/08/24 BUN 29 mg/dl (6-23) H 12/08/24 Creat 1.35 mg/dl (0.6-1.4) 12/08/24 Glucose Level 125 mg/dl (70-99(Fasting)) H 12/08/24 PT 10.5 Seconds (9.0-12.0) 12/08/24 PTT 26 Seconds (21-31) 12/08/24 INR 1.0 (0.9-1.1) 12/08/24 HA1c 7.6 % (4.5-5.6) H 12/08/24 Blood Type A Negative 12/08/24 Antibody Screen NEGATIVE 12/08/24 Testing Laboratory Results Surgeon's office made aware of elevated A1c. Electrocardiogram Date: 05/06/24 NSR, rate 69 bpm Chest X-Ray Date: 12/08/24 No acute findings. Echocardiogram Date: 05/07/24 EF 60-65% No regional wall motion abnormalities Moderate cLVH Mild LA dilation Sclerotic aortic valve without significant stenosis, trace aortic regurgitation Mild mitral regurgitation Mild pulmonic valvular regurgitation Type I diastolic dysfunction Other Testing Cardiac event monitor 06/18/24 Sinus rhythm with rates 51-134 bpm, avg 81 bpm Rare supraventricular ectopic beats, accounted for 0.26% of all beats 58 episodes of nonsustained supraventricular tachycardia. Duration ranged from 3-12 beats. Maximum ventricular rate 184 bpm. An 11 beat episode of probable nonsustained supraventricular tachycardia with aberrant conduction at a rate of 118 bpm. One 15 second episode of what was preliminarily reported as afib at a rate of 112 bpm...appears to be underlying sinus rhythm with frequent and consecutive premature supraventricular ectopic beats Frequent premature ventricular ectopic beats, accounted for 5.15 % of all beats. Rare ventricular couplets and ventricular triplets. Rare episodes of ventricular bigeminy and ventricular trigeminy No inappropriate pauses or significant conduction abnormalities Head CT 05/08/24 1. No acute intracranial hemorrhage or mass effect. 2. Subtle left frontoparietal hypodensity which likely corresponds to the acute infarcts on MRI of May 07, 2024. No new infarcts identified by CT. 3. Several old left frontoparietal infarcts. Brain 05/07/24 Upon further review, note is made of multiple adjacent foci of restricted diffusion within the left frontoparietal region which are moderate in extent. There is no mass effect or evidence for hemorrhagic conversion. The findings are consistent with an acute left frontoparietal infarct. Head and neck CTA 05/06/24 1. The right vertebral artery is no longer identified proximally. There is reconstitution of the mid cervical segment with the distal small bowel caliber right vertebral artery remaining patent and stable in appearance. This is presumed related to retrograde filling from the contralateral dominant vertebral artery. The left vertebral artery is widely patent and stable in appearance. 2. Partially calcified prominent atheromatous changes involving the proximal left internal carotid artery, extending to the carotid bifurcation. There is mild to moderate, proximally 45% luminal stenosis using NASCET criteria the mid to distal left internal carotid artery is patent. The left common carotid artery is patent. 3. The common carotid and internal carotid arteries are patent without significant stenosis or occlusion. Negative intracranial CTA examination. No significant alteration from the prior examination.
--- NOTE | 2024-12-25 17:12 | History & Physical Report ---
Date of Service December 25, 2024 Assessment & Plan (1) Arthritis of left hip: 79-year-old gentleman with multiple medical comorbidities with advanced left hip arthritis. He has failed conservative treatment. He like to have his left hip fixed. Risks and benefits of total hip replacement were explained and he u nderstands. Informed consent was obtained. Plan: We are going to take him to the operating room and do a total hip replacement. Risks and benefits procedure explained. Informed consent was obtained. He has hold his Plavix a week before and we will start him on a 24 hours postop. He has been seen by neurology and the risks of were explained and he would like to proceed. He is planning to be discharged to home using home health and his 's assistance. Will use Plavix for DVT prophylaxis. (2) Ischemic stroke: (3) Aortic regurgitation: (4) Mitral regurgitation: (5) Dyslipidemia: (6) Carotid artery stenosis: (7) Hypertension: (8) Diabetes: (9) Essential (primary) hypertension: History of Present Illness Chief Complaint: . Left hip pain. Primary Care Provider: Billy Maza MD . The patient is a 79-year-old gentleman and have a total hip patient mine who presents for several year history of increasing left hip pain discomfort is gotten worse over the past year. No particular injury. Describes with left hip and buttock groin and thigh pain. He has been through some physical therapy without much relief. He limps on his left side. He is having more more trouble getting around. He did have a stroke back in April of last year with very little residual sequela. It is affecting his thought process slightly. No motor dysfunction. He like to have his hip fixed. He has been seen by neurology and this has been discussed with him. Allergies Allergy/AdvReac Type Severity Reaction Status Date / Time atorvastatin AdvReac Severe Headache,weakness,back Verified 12/07/24 08:35 pain. lisinopril AdvReac Intermediate Cough Verified 12/07/24 08:35 Home Medications Medication Instructions Recorded Confirmed Type cholecalciferol (vitamin D3) 25 25 mcg PO BID 09/20/20 12/07/24 History mcg (1,000 unit) capsule (Vitamin D3) fluticasone propionate 50 2 spray intranasal DAILY PRN Nasal 09/20/20 12/07/24 History mcg/actuation nasal Congestion spray,suspension multivitamin 1 tab PO QAM 09/20/20 12/07/24 History vit C 50 mg-E 15 unit-zinc cit 4.5 1 tab PO QAM 09/20/20 12/07/24 History mg-lutein 2.5 mg-zeaxan chew tablet ([employer]) zinc sulfate 50 mg zinc (220 mg) 50 mg PO QAM 09/20/20 12/07/24 History capsule ketoconazole 2 % shampoo 1 applic topical UD PRN Skin 05/07/24 12/07/24 History Irritation losartan 100 mg tablet 100 mg PO QAM 05/07/24 12/07/24 History triamcinolone acetonide 0.1 % 1 applic topical UD PRN Rash 05/07/24 12/07/24 History topical cream clopidogrel 75 mg tablet 75 mg PO QAM #30 tabs 05/09/24 12/07/24 Rx Beet 1 tab PO QAM 12/07/24 12/07/24 History fish, borage, flaxseed oils-omega 1 cap PO QAM 12/07/24 12/07/24 History 3,6,9 comb no.1 1,200 mg capsule ([place] 3-6-9) insulin glargine 100 unit/mL 16 unit subcut HS 12/07/24 12/07/24 History subcutaneous solution (Lantus U-100 Insulin) lutein 20 mg tablet 20 mg PO QAM 12/07/24 12/07/24 History rosuvastatin 20 mg tablet 20 mg PO QAM 12/07/24 12/07/24 History vitamin B complex 1 tab PO QAM 12/07/24 12/07/24 History Past Med/Surg History Problem List Encounter for pre-operative examination Arthritis of left hip Ischemic stroke Difficulty writing Low back pain History of rheumatic fever as a child Normal left ventricular systolic function and wall motion Aortic regurgitation Mitral regurgitation Dyslipidemia Carotid artery stenosis Tobacco abuse Hypertension (Acute) Diabetes (Acute) Essential (primary) hypertension Medical History Vertebral artery stenosis entered into EMR 09/21/20. Head and neck CTA 2023: The right vertebral artery is no longer identified proximally. There is reconstitution of the mid cervical segment with the distal small bowel caliber right vertebral artery remaining patent and stable in appearance. This is presumed related to retrograde filling from the contralateral dominant vertebral artery. The left vertebral artery is widely patent and stable in appearance. History of rheumatic fever as a child Osteoarthritis Diabetes mellitus, type 2 Hearing deficit On anticoagulant therapy plavix daily Hypertension controlled, stable per pt Hyperlipidemia History of stroke x2--most recent 05/06/2024--reason for plavix, "no mobility issues does have some issues retaining information, and some issues with writing"--follows with [place] neurologist Aortic regurgitation Carotid artery stenosis Partially calcified prominent atheromatous changes involving the proximal left internal carotid artery, extending to the carotid bifurcation. There is mild to moderate, proximally 45% luminal stenosis using NASCET criteria the mid to distal left internal carotid artery is patent. The left common carotid artery is patent. The common carotid and internal carotid arteries are patent without significant stenosis or oc clusion. Surgical History History of bilateral carpal tunnel release History of repair of left rotator cuff History of repair of right rotator cuff History of tooth extraction dentures Family History Mother Myocardial infarction Parkinson disease Stroke Other No family history of adverse response to anesthesia Social History Smoking Status: Never smoker Tobacco Type: Smokeless Tobacco (Dip or Chew) Second Hand Exposure: No; Do You Dip or Chew Tobacco: Yes (chews (advised on policy)); Hx Alcohol Use: Yes Alcohol type: beer Alcohol Intake Frequency: 2-4 x/Month Hx Substance Use: No Preferred Language: Danish Communication Ability: Effective Planning Specialist Required: No Beliefs That Will Affect Care: None marital status: Current Living Situation: Spouse current occupational status: retired current occupation: highway construction How many Children do You have: 3 Assistive Devices: Denture - Upper and Glasses Review of Systems All systems reviewed & are unremarkable except as noted in HPI & below. Physical Exam . Physical examination reveals a pleasant elderly male. Looks in pretty good health. His HEENT exam is benign. Neck is supple no lymphadenopathy. Lungs are clear to auscultation. Heart is regular rate and rhythm. Abdomen soft nontender nondistended extremity Emge posterior neuro vas intact as well as. Examination of left hip and leg reveal patient walks with a markedly antalgic gait. About half centimeter short left side compared to the right. He is got a very stiff hip with limited motion. Internal rotation to -10. Negative straight leg raise. No knee effusion. He is otherwise neurologically intact. Constitutional WD/WN, vitals as above Neck trachea midline, no thyromegaly Respiratory normal respiratory effort, lungs clear to auscultation Cardiovascular RRR, no murmur, no edema Gastrointestinal (Abdomen) normal bowel sounds, soft, nontender, no hepatosplenomegaly Results & Data Results & Data Laboratory Results . Diagnostic Findings . X-rays of the hip were reviewed. Shows advanced left hip arthritis. Got complete loss of the joint space. He is got cystic changes on both sides of the joint. PG Care Time/CCT Total # of Minutes Spent Total Time Spent with Patient: Total time spent is greater than 50% in coordination of care (as documented) at patient's floor/unit and/or counseling patient: Coding Level of Care Code None Diagnoses Arthritis of left hip M16.12 Ischemic stroke I63.9 Aortic regurgitation I35.1 Mitral regurgitation I34.0 Dyslipidemia E78.5 Carotid artery stenosis I65.29 Hypertension I10 Diabetes E11.9 Essential (primary) hypertension I10
[~2025-01-01 07:02] MED LIST: BUPIVACAINE 0.5 % 5 MG/1 ML PF 10ML VIAL ONE; PROPOFOL IV EMULSION 10 MG/ML 100 ML VIAL IV ONE
[2025-01-01] MEDS ORDERED: LIDOCAINE 2% 2 ML VIAL/AMP(20MG/ML) INFIL ONE (07:26)
[2025-01-01] MEDS ORDERED: MIDAZOLAM HCL 1 MG/ML 2ML VIAL ONE (07:27)
[2025-01-01] MEDS: LR 500ML BOLUS, THEN 15ML/HR IV SCH (07:36)
[2025-01-01] MEDS: ACETAMINOPHEN 500 MG TAB PO SCH ×2 (07:37→17:34)
[2025-01-01] MEDS: FAMOTIDINE 20 MG TAB PO SCH (07:38)
[2025-01-01] MEDS: dexAMETHasone**PF** 10 MG/ML VIAL IV SCH (07:38)
[2025-01-01] MEDS: METOCLOPRAMIDE HCL 10 MG TABLET PO SCH (07:38)
[2025-01-01] MEDS: CeleBREX 200 MG CAP PO SCH (07:38)
[2025-01-01] MEDS: LR 60ML/HR IV SCH (07:41)
[2025-01-01] MEDS ORDERED: HYDROmorphone INJ 2 MG/ML SYR/VIAL IV PRN (08:24)
[2025-01-01] MEDS ORDERED: ATROPINE SULFATE 0.1 MG/ML 10ML SYR IV PRN (08:24)
[2025-01-01] MEDS ORDERED: ONDANSETRON INJ 2 MG/ML 2 ML VIAL IV PRN ×2 (08:24→12:16)
[2025-01-01] MEDS ORDERED: PROMETHAZINE HCL 6.25 MG in SODIUM CHLORIDE 0.9% 50 ML IV PRN (08:24)
--- NOTE | 2025-01-01 08:35 | History & Physical Bridge Note ---
Date of Service January 01, 2025 History & Physical Bridge Note I have examined the patient, reviewed the History & Physical and in the interval since the performance of the History & Physical I have noted the following changes of clinical significance: no changes noted. Doing Left Hip REplacement.
[2025-01-01] MEDS: TRANEXAMIC ACID 1,000 MG **IV Pre-op IV SCH (08:38)
[2025-01-01] MEDS ORDERED: ePHEDrine sulfate 50 MG/5 ML SYR ONE (09:17)
[2025-01-01] MEDS ORDERED: PHENYLEPHRINE 100MCG/ML 5ML SYR ONE (09:17)
[2025-01-01] MEDS ORDERED: PHENYLEPHRINE HCL 10 MG/ML VIAL ONE (09:31)
[2025-01-01] MEDS: BUPIVACAINE/EPINEPHRINE 0.5% MPF 1:200,000 30 ML VIAL ONE (10:03)
--- NOTE | 2025-01-01 10:37 | Operative Report ---
PG Post Operative Report Pre & Post Diagnosis Operation Date: 01/01/25 08:50 Pre-Op Diagnosis: Arthritis of left hip Post-Op Diagnosis: Arthritis of left hip I identified the patient and participated in the time-out.: Yes Procedure Operation Date: 01/01/25 08:50 Actual Procedures p Left Total Hip Arthroplasty(Left) - Jose David Robles MD Surgeon Jose David Robles MD Oral Surgeon Esdras Saenz PA-C Estimated Blood Loss 100 Findings Consistent with Post-Op Diagnosis Specimens Left femoral head sent for pathology. Anesthesia Type Spinal MAC Complications none Disposition Accompanied Patient To Recovery: No Indications The patient is a 79-year-old fairly active gentleman who has had a several year history of increasing left hip pain discomfort got significantly worse over the past 6 months. Failed conservative measures. X-rays show advanced left hip arthritis. He elected proceed with total hip arthroplasty. Of note, the patient did have a relatively recent stroke about 9 months ago. He was kind of waiting till about 6 to 9 months postop before proceeding with a total hip arthroplasty as per the neurologist recommendations. Please proceed along that course and desires surgical management. Description of Procedure Operative implants consist of: 1. Biomet G7 size 54 mm acetabular shell. 2. Big [place]urel hole openstack cloud consulting architect. 3. Highly cross-linked polyethylene liner with a 54 mm outer diameter 36 mm diameter. 5. DePuy Karaya size 9 KLA femoral stem. 6. +1.5/36 mm ceramic articular ball. The patient was taken the operating, identified, placed on the operating table in the supine position. All conductors were appropriately padded. IV antibiotics were by anesthesia team. A spinal anesthetic had been implemented in the holding area. The patient was then placed in the right lateral decubitus position. An axillary roll was placed. Distal Birkett position was used for positioning. The left hip and leg were then prepped and draped in usual sterile fashion. A posterolateral approach to the left hip was then performed to a curvilinear incision centered over the greater trochanter. Sharp dissection Through subcutaneous tissue down to the IT band gluteal fascia. The IT band gluteal fascia was then incised longitudinally in line with skin incision. The underlying greater bursa was excised. The piriformis pectoral rotators along with the posterior joint capsule were then released from the posterior aspect hip as a single layer. Hip was internally rotated and dislocated. Femoral neck osteotomy cut was made with a Final Cut about 5 mm above the lesser trochanter. The femoral head was removed and sent for pathology. The femur was retracted anteriorly. Attention then drawn to the acetabulum. The acetabular labrum was excised. The Pulvinal fat was excised. Sequential reaming the acetabulum was then performed using a size 47 progressing up to 53. I reamed a little bit with a 54 reamer and then placed a 54 mm Biomet G7 acetabular shell in about 40 degrees lateral opening and 20 degrees of anteversion. It was fixed with two 6.5 screws. A trial liner was placed. Some small osteophytes were taken off the anterior aspect of the acetabulum. At tention then drawn the femur. The proximal femur was entered with a cookie cutter followed by canal finder. He had a very sclerotic cancellous bone structure. It was hard to even advance in the canal finder. I then broached begin with size 8 and progressing to up with 9. He had a very tight good fit. There was additional cancellous bone but I did not feel we needed to remove any additional. We trialed the hip. The +5 articular ball seemed a little bit tight so we elect to use a +1.5. Was fully stable full extension and external rotation flexion to 90 degrees internal rotation over [address] his implants. All trial implants were removed. Big Laurel hole openstack cloud consulting architect was placed. Highly cross- linked polyethylene liner was placed. A size 9 KLA femoral stem was impacted in position. A +1.5/36 mm ceramic articular ball was placed. Hip was located and once again found to be stable. Attention then drawn toward closing. The wound was irrigated scope saps pulsatile lavage solution. I did did inject locally with 60 cc of half percent Marcaine with epinephrine. The posterior capsule and external rotators then repaired to drill holes in the posterior trochanter with #2 Tycron suture. The IT band gluteal fascia then closed in 1 PDS suture in a running fashion the subcutaneous tissue then closed with 2 layer of the deep layer #0 Vicryl suture and subcutaneous tissue with 2-0 Dexon suture in a buried interrupted fashion. Skin was closed with skin layla. Leg was then cleaned and dried and a sterile dressing was Xeroform, 4 fours, sterile ABD pad and foam tape was applied. The patient then transferred to the recovery room in stable condition. Patient tolerated procedure well and there were no complications. Esdras Saenz, physician pathologist assistant, was present for the entire procedure. His assistance was required for proper patient positioning, prepping and draping, surgical exposure, retraction, perform the technical details of the operation, placement of the implants, closure of the incision site and placement of postoperative sterile bandage. I attest to the content of the Intraoperative Record and any orders documented t herein. Any exceptions are noted below.
--- NOTE | 2025-01-01 11:12 | XRay Report ---
SINGLE VIEW PELVIS; SINGLE VIEW LEFT HIP CLINICAL HISTORY: Postoperative examination. FINDINGS: An AP portable view of the hips and pelvis with a crosstable lateral portable view of the l eft hip are compared to study dated 04/08/2023. A bipolar left hip arthroplasty is in near-anatomic a lignment. At least 2 cortical lag screws transfix the acetabular cup. No acute fracture is identified . There are expected postoperative changes overlying the left hip including skin clips, subcutaneous gas, and soft tissue swelling. Mild arthritic change is seen in the right hip. There is mild degenera tive sclerosis of the sacroiliac joints. IMPRESSION: Expected postoperative findings status post left hip arthroplasty. No acute fracture is s een. ACT 112: Negative or not required by law. Electronically signed by: Gordon Luna M.D. 01/01/2025 11:10 AM
[2025-01-01] MEDS ORDERED: NALOXONE HCL 0.4 MG/1 ML VIAL/CARP IV PRN (12:16)
[2025-01-01] MEDS ORDERED: CARBOHYDRATES FOR HYPOGLYCEMIA PO PRN (12:16)
[2025-01-01] MEDS ORDERED: GLUCOSE 40% GEL 15 GM TUBE PO PRN (12:16)
[2025-01-01] MEDS ORDERED: FLUTICASONE PROPIONATE NA SPR 16 GM BTL NAE PRN (12:16)
[2025-01-01] MEDS ORDERED: GLUCAGON FOR INJ 1 MG VIAL SQ PRN (12:16)
[2025-01-01] MEDS ORDERED: METOCLOPRAMIDE HCL INJ 5 MG/ML 2 ML VIAL IV PRN (12:16)
[2025-01-01] MEDS ORDERED: ALUMINUM/MAGNESIUM SUSP 30 ML UDC PO PRN (12:16)
[2025-01-01] MEDS ORDERED: DEXTROSE 50% 50 ML SYRINGE IV PRN (12:16)
[2025-01-01] MEDS ORDERED: MAGNESIUM HYDROXIDE SUSP 30 ML UDC PO PRN (12:16)
[2025-01-01] MEDS ORDERED: TRIAMCINOLONE ACET 0.1% CR 15 GM TUBE TOP PRN (12:16)
[2025-01-01] MEDS ORDERED: HYDROmorphone INJ 0.5 MG/0.5 ML SYR IV PRN (12:16)
[2025-01-01] MEDS ORDERED: PHARMACY GLYCEMIC MGMT CONSULT PRN (12:16)
[2025-01-01] MEDS ORDERED: GLUCOSE 10 TAB/TUBE PO PRN (12:16)
--- NOTE | 2025-01-01 13:01 | Anesthesiology Progress Note ---
Date of Service January 01, 2025 Anesthesia Post Procedure Vital Signs Vital Signs: Temp Pulse Pulse Resp BP Pulse Ox O2 Del Method 01/01/25 12:05 97 H 16 113/75 96 Room Air 01/01/25 11:55 36.3 C L 92 H 16 122/72 96 Room Air 01/01/25 11:45 87 14 131/84 96 Room Air 01/01/25 11:35 88 12 130/84 98 Room Air 01/01/25 11:25 87 24 131/87 96 Room Air 01/01/25 11:15 88 13 129/84 99 Room Air 01/01/25 11:05 89 19 107/76 99 Room Air 01/01/25 10:55 96 H 20 107/64 98 Room Air 01/01/25 10:45 85 25 H 98/55 L 98 Room Air 01/01/25 10:35 90 19 110/73 99 Room Air 01/01/25 10:27 36.2 C L 94 H 25 H 98/70 L 99 Room Air 01/01/25 07:28 36.7 C 78 20 99/70 L 97 Room Air Transfer of Care Handoff Completed per policy Notes Mental Status: alert / awake / arousable and participated in evaluation Patient Amnestic to Procedure: Yes Nausea / Vomiting: adequately controlled Pain: adequately controlled Airway Patency, RR, SpO2: stable & adequate BP & HR: stable & adequate Hydration State: stable & adequate Anesthetic Complications: no major complications apparent
--- NOTE | 2025-01-01 13:25 | Pharmacy Report ---
Pharmacy Glycemic Short Note 2 - Date of Service January 01, 2025 - Glycemic Short BSG Results (Last 24 hours): 01/01/25 01/01/25 07:30 10:29 POC Glucose 148 H 199 H OUTPATIENT ANTIDIABETIC REGIMEN: * Lantus 16 units SQ HS * HbA1c 7.6% (12/08/24) ASSESSMENT: * Josr is a 79 year old male status post left total hip arthroplasty with a history of insulin dependent type 2 diabetes mellitus. Pharmacy has been cons ulted to assist with glycemic management while inpatient. * Preoperative BSG this AM acceptable, dexamethasone 10mg IV given preoperatively, post surgery BSG with significant rise, will give Lantus at 0.4 units/kg x1 to cover steroid induced hyperglycemia. Plan for dexamethasone again in the AM Lantus ordered again x1. Additional scale at bedtime if Lantus not enough to cover steroids and basal needs. * NovoLog at a weight based stress of 3. PLAN FOR INPATIENT GLYCEMIC CONTROL: * Hold outpatient oral diabetes medications * Basal insulin * Lantus 25 units SQ x1 * Lantus 0-10 units SQ HS (see eMAR for additional details) * Lantus 25 units SQ with dexamethasone x1 in AM * Bolus insulin * NovoLog per scale ACHS or Q6hrs while NPO * Goal Range: Low 110 mg/dL - High 140 mg/dL * Correction Factor: 25 mg/dL/unit * Nutritional / Prandial insulin per carb ratio of 1 unit per 8 grams CHO consumed
[2025-01-01] MEDS ORDERED: ACETAMINOPHEN 500 MG TAB PO SCH (14:00)
[2025-01-01] MEDS: SODIUM CHLORIDE 0.9% 1,000 ML IV SCH (14:27)
[2025-01-01] MEDS: KETOROLAC TROMETHAMINE 15 MG/ML VIAL IV SCH (14:38)
[2025-01-01] MEDS: LANTUS PER UNIT CHARGE SC ONE (14:38)
[2025-01-01] MEDS: INSULIN ASPART PER UNIT CHARGE SC SCH (14:39)
[2025-01-01] MEDS: TRANEXAMIC ACID / 0.7% NACL 1,000 MG/100 ML BAG IV SCH (17:34)
[2025-01-01] MEDS: ASCORBIC ACID 500 MG TAB PO SCH (17:35)
[2025-01-01 19:04] VITALS: RESP 18
[2025-01-01] MEDS: DOCUSATE SODIUM 100 MG CAP PO SCH (20:16)
[2025-01-01] MEDS: ROSUVASTATIN CALCIUM 20 MG TAB PO SCH (20:16)
[2025-01-01] MEDS: CHOLECALCIFEROL 25 MCG (1000 UNITS) TAB PO SCH (20:16)
[2025-01-01] MEDS: SENNA 8.6 MG TAB PO SCH (20:16)
[2025-01-01] MEDS: LANTUS PER UNIT CHARGE SQ SCH (20:41)
[2025-01-01] MEDS ORDERED: SENNA 8.6 MG TAB PO SCH (21:00)
[2025-01-02 07:24] LABS: Hematocrit (blood only) 31.6 % (42.0-52.0); Hemoglobin 10.7 g/dl (14.0-18.0); Immature Granulocytes # (auto) 0.06 K/uL (0.01-0.20); Immature Granulocytes % (auto) 0.5 %; Mean Corpuscular Hemoglobin 31.0 pg (25.0-34.0); Mean Corpuscular Volume 91.6 fL (80.0-100.0); Platelet Count 162 K/uL (130-400); RDW Standard Deviation 45.3 fL (36.4-46.3); Red Blood Count 3.45 M/uL (4.70-6.10); White Blood Count 13.22 K/ul (4.8-10.8)
[2025-01-02 07:39] VITALS: BP 158/83; PULSE 93; TEMP 98.4; O2SAT 93
--- NOTE | 2025-01-02 07:49 | Orthopedic Progress Note ---
Date of Service January 02, 2025 Assessment & Plan (1) Arthritis of left hip: Overall he is doing very well. He is not having much pain in the left hip. He will be seen by physical therapy today for ambulation and range of motion exercises. He is on Plavix for DVT prophylaxis. He can be discharged home later today. He will follow-up orthopedics in 2 weeks. Subjective Josr was seen and examined at bedside this morning. Overall is doing very well. He is not having much pain in the left hip. Has been up and ambulating to the bathroom. He has no complaints.. Review of Systems All systems reviewed & are unremarkable except as noted in HPI & below. Physical Exam On physical exam of the left hip, the dressing is clean and dry. His leg is out full extension. He has active dorsiflexion plantarflexion of his left ankle.. Results & Data Results & Data Laboratory Results . Diagnostic Findings Postoperative x-rays of the left hip show the prosthesis to be in anatomic alignment without any evidence of fracture, dislocation, or loosening.. PG Care Time/CCT Total # of Minutes Spent Total Time Spent with Patient: Total time spent is greater than 50% in coordination of care (as documented) at patient's floor/unit and/or counseling patient: Coding Level of Care Code 26786 Post Operative Follow-Up Diagnoses Arthritis of left hip M16.12
[2025-01-02] MEDS ORDERED: LANTUS PER UNIT CHARGE SC ONE ×2 (08:00)
[2025-01-02 08:01] LABS: Anion Gap 9.0 (3-11); Blood Urea Nitrogen 38.0 mg/dl (6-23); Calcium 8.6 mg/dl (8.6-10.3); Carbon Dioxide 22.0 mmol/L (21-32); Chloride 107.0 mmol/L (98-107); Creatinine Clr Calc Pharmacy 28.6 ml/min; Glucose 129.0 mg/dl (70-99(Fasting)); Potassium 4.7 mmol/L (3.5-5.1); Sodium 138.0 mmol/L (136-145)
[2025-01-02] MEDS: dexAMETHasone 10 MG in SYRINGE 0 ML IV SCH (08:56)
[2025-01-02] MEDS: LANTUS PER UNIT CHARGE SC ONE (08:56)
[2025-01-02] MEDS: VITAMIN B COMPLEX TAB PO SCH (08:58)
[2025-01-02] MEDS: TAMSULOSIN HCL 0.4 MG CAP PO SCH (08:58)
[2025-01-02] MEDS: LOSARTAN POTASSIUM 50 MG TAB PO SCH (08:58)
[2025-01-02] MEDS: CLOPIDOGREL BISULFATE 75 MG TAB PO SCH (08:58)
[2025-01-02] MEDS: CEROVITE ADV FORMULA TAB PO SCH (08:58)
[2025-01-02] MEDS: ZINC SULFATE 220 MG CAPSULE PO SCH (08:58)
[2025-01-02] MEDS: MULTIVITAMIN TAB PO SCH (09:00)
[2025-01-02] MEDS ORDERED: NON-FORMULARY MEDICATION (Multivitamin Tablet) PO SCH (09:00)
[2025-01-02] MEDS ORDERED: BEET PO SCH (09:00)
[2025-01-02] MEDS ORDERED: NON-FORMULARY MEDICATION (Fish,Bora,Flax Oils-Om3,6,9no1 [Omega 3-6-9] 1,200 mg Capsule) PO SCH (09:00)
== END 2025-01-02 11:28 | disposition home health service (06) ==
LOC: 3N 07:02 → ASU 07:02